=== PATIENT | male | born 1945 | race Caucasian/White ===

== ENCOUNTER → 2017-04-08 09:59 | Outpatient (CLI) | payer MEDICARE, BC, SELFPAY ==
[2017-04-08 10:57] LABS: Hemoglobin A1C 8.3 % (0.0-7.0)
[2017-04-08 11:34] LABS: Alanine Aminotransferase 42 U/L (12-78); Albumin Level 3.8 gm/dL (3.4-5.0); Albumin/Globulin Ratio 1.2 (1.1-1.8); Alkaline Phosphatase 89 U/L (46-116); Anion Gap 13.6 mEq/L (5-15); Aspartate Amino Transferase 16 U/L (15-37); Bilirubin,Total 0.4 mg/dL (0.2-1.0); Blood Urea Nitrogen 18 mg/dL (7-18); Calcium 8.6 mg/dL (8.5-10.1); Carbon Dioxide 29 mmol/L (21.0-32.0); Chloride 104 mmol/L (98-107); Chol/HDL Ratio 5.2 (1-3.5); Cholesterol 160 mg/dL (140-200); Creatinine,Serum 1.06 mg/dL (0.70-1.30); Estimated Glomerular Filt Rate 69 ml/min (>60); GFR (African American) 84 ML/MIN (>60); Globulin 3.3 gm/dl (1.3-3.2); Glucose 130 mg/dL (74-106); HDL Cholesterol 31 mg/dL (27-67); LDL Cholesterol 99 mg/dL (0-130); Potassium 4.6 mmoL/L (3.5-5.1); Sodium 142 mmol/L (136-145); Total Protein,Serum 7.1 gm/dL (6.4-8.2); Triglycerides 148 mg/dL (30-200); VLDL Cholesterol 30 mg/dL (0-40)
== END ==
PROVIDERS: PCP Internal Medicine; Visit Provider Internal Medicine
DX: E11.9 Type 2 diabetes mellitus without complications (principal); Z12.5 Encounter for screening for malignant neoplasm of prostate; I10 Essential (primary) hypertension; M17.0 Bilateral primary osteoarthritis of knee
CPT/HCPCS: 36415; 80053; 80061; 83036; G0103

== ENCOUNTER → 2017-10-28 09:58 | Outpatient (CLI) | payer MEDICARE, BC, SELFPAY ==
[2017-10-28 12:32] LABS: Alanine Aminotransferase 44 U/L (12-78); Albumin Level 3.6 gm/dL (3.4-5.0); Albumin/Globulin Ratio 1.1 (1.1-1.8); Alkaline Phosphatase 97 U/L (46-116); Anion Gap 12.3 mEq/L (5-15); Aspartate Amino Transferase 16 U/L (15-37); Bilirubin,Total 0.5 mg/dL (0.2-1.0); Blood Urea Nitrogen 21 mg/dL (7-18); Calcium 8.8 mg/dL (8.5-10.1); Carbon Dioxide 30 mmol/L (21.0-32.0); Chloride 105 mmol/L (98-107); Chol/HDL Ratio 5.5 (1-3.5); Cholesterol 148 mg/dL (140-200); Creatinine,Serum 1.15 mg/dL (0.70-1.30); Estimated Glomerular Filt Rate 63 ml/min (>60); GFR (African American) 76 ML/MIN (>60); Globulin 3.4 gm/dl (1.3-3.2); Glucose 154 mg/dL (74-106); HDL Cholesterol 27 mg/dL (27-67); LDL Cholesterol 82 mg/dL (0-130); Potassium 4.3 mmoL/L (3.5-5.1); Sodium 143 mmol/L (136-145); Triglycerides 194 mg/dL (30-200); VLDL Cholesterol 39 mg/dL (0-40)
[2017-10-28 13:18] LABS: Hemoglobin A1C 8.5 % (0.0-7.0)
== END ==
PROVIDERS: PCP Internal Medicine; Visit Provider Internal Medicine
DX: E11.9 Type 2 diabetes mellitus without complications (principal); E78.5 Hyperlipidemia, unspecified; I10 Essential (primary) hypertension
CPT/HCPCS: 36415; 80053; 80061; 83036

== ENCOUNTER → 2018-04-21 09:22 | Outpatient (CLI) | payer MEDICARE, BC, SELFPAY ==
[2018-04-21 11:51] LABS: Alanine Aminotransferase 43 U/L (12-78); Albumin Level 3.6 gm/dL (3.4-5.0); Albumin/Globulin Ratio 1.1 (1.1-1.8); Alkaline Phosphatase 95 U/L (46-116); Aspartate Amino Transferase 11 U/L (15-37); Bilirubin,Total 0.6 mg/dL (0.2-1.0); Blood Urea Nitrogen 19 mg/dL (7-18); Calcium 8.7 mg/dL (8.5-10.1); Carbon Dioxide 29 mmol/L (21.0-32.0); Chloride 102 mmol/L (98-107); Cholesterol 173 mg/dL (140-200); Creatinine,Serum 1.05 mg/dL (0.70-1.30); Estimated Glomerular Filt Rate 70 ml/min (>60); GFR (African American) 84 ML/MIN (>60); Globulin 3.4 gm/dl (1.3-3.2); Glucose 195 mg/dL (74-106); HDL Cholesterol 29 mg/dL (27-67); LDL Cholesterol 112 mg/dL (0-130); Prostate Specific Ag, Diagnost 1.11 ng/mL (0.0-4.0); Sodium 142 mmol/L (136-145); Triglycerides 159 mg/dL (30-200); VLDL Cholesterol 32 mg/dL (0-40)
[2018-04-21 13:47] LABS: Hemoglobin A1C 8.1 % (0.0-7.0)
[2018-04-25 09:54] LABS: Microalbumin, Urine 55.9 ug/mL (Not Estab.)
== END ==
PROVIDERS: Visit Provider Internal Medicine
DX: E11.9 Type 2 diabetes mellitus without complications (principal); R97.20 Elevated prostate specific antigen [PSA]; Z79.4 Long term (current) use of insulin; Z79.84 Long term (current) use of oral hypoglycemic drugs
CPT/HCPCS: 36415; 80053; 80061; 82043; 83036; 84153

== ENCOUNTER → 2018-07-17 10:09 | Outpatient (CLI) | payer MEDICARE, BC, SELFPAY ==
[2018-07-17 10:13] LABS: Microscopic, Urine URINE MICROSCOPIC (MICROSCOPIC)
--- NOTE | 2018-07-17 10:30 | XR_ITS ---
XR chest 2V HISTORY: ITS.REASON: HTN, PRE OP ORDERING PHYSICIAN: Ariel Villaseñor PATIENT AGE: 72 years COMPARISON: None FINDINGS: The cardiomediastinal silhouette and pulmonary vascularity are within normal limits. The lungs are clear without infiltrates, suspicious nodules, or pleural effusions. There are mild degenerative changes in the thoracic spine. IMPRESSION: No acute finding
[2018-07-17 10:33] LABS: Basophils # 0.1 K/mm3 (0-0.2); Basophils % 1.5 % (0.1-2.0); Eosinophils # 0.7 K/mm3 (0.0-0.4); Hematocrit 50.8 % (42.0-52.0); Hemoglobin 16.6 g/dL (14.1-18.0); Lymphocytes # 2.2 K/mm3 (0.7-4.5); Mean Corpuscular HGB Conc 32.8 g/dL (31.8-35.4); Mean Corpuscular Hemoglobin 28.6 pg (27.0-31.2); Mean Corpuscular Volume 87.3 fl (80-94); Mean Platelet Volume 7.9 fl (7.4-10.4); Monocytes # 0.5 K/mm3 (0.1-1.0); Monocytes % 5.1 % (1.7-9.3); Neutrophils # 5.5 K/mm3 (1.8-7.8); Neutrophils % 61.4 % (37.0-80.0); Platelet Count 213 K/mm3 (142-424); Red Blood Count 5.82 M/mm3 (4.60-6.20); Red Cell Distribution Width 13.5 % (11.5-17.5)
[2018-07-17 10:35] LABS: Appearance,Urine CLEAR (Clear); Bilirubin,Urine Negative (Negative); Blood, Urine Negative (Negative); Color,Urine YELLOW (Yellow); Glucose,Urine (UA) 3+ (Negative); Ketones,Urine Negative (Negative); Leukocyte Esterase,Urine Negative (Negative); Nitrate,Urine Negative (Negative); Protein,Urine Negative (Negative); Urobilinogen,Urine 0.2 EU/dl (0.2)
[2018-07-17 10:41] LABS: INR 0.97 (0.9-1.1); Prothrombin Time 10.1 seconds (9.4-11.8)
[2018-07-17 10:52] LABS: Bacteria,Urine Trace /lpf; Squamous Epithelial Cell,Urine Occasional #/hpf (0-5)
[2018-07-17 11:57] LABS: Alanine Aminotransferase 42 U/L (12-78); Albumin/Globulin Ratio 1.1 (1.1-1.8); Alkaline Phosphatase 88 U/L (46-116); Anion Gap 15.4 mEq/L (5-15); Aspartate Amino Transferase 14 U/L (15-37); Bilirubin,Total 0.5 mg/dL (0.2-1.0); Blood Urea Nitrogen 25 mg/dL (7-18); Calcium 8.7 mg/dL (8.5-10.1); Carbon Dioxide 26 mmol/L (21.0-32.0); Chloride 105 mmol/L (98-107); Chol/HDL Ratio 6.2 (1-3.5); Cholesterol 160 mg/dL (140-200); Creatinine,Serum 1.14 mg/dL (0.70-1.30); Estimated Glomerular Filt Rate 64 ml/min (>60); GFR (African American) 77 ML/MIN (>60); Globulin 3.7 gm/dl (1.3-3.2); Glucose 78 mg/dL (74-106); HDL Cholesterol 26 mg/dL (27-67); LDL Cholesterol 104 mg/dL (0-130); Potassium 4.4 mmoL/L (3.5-5.1); Sodium 142 mmol/L (136-145); Total Protein,Serum 7.7 gm/dL (6.4-8.2); Triglycerides 149 mg/dL (30-200); VLDL Cholesterol 30 mg/dL (0-40)
== END ==
PROVIDERS: Visit Provider Internal Medicine
DX: E11.9 Type 2 diabetes mellitus without complications; Z79.4 Long term (current) use of insulin; I10 Essential (primary) hypertension; M17.0 Bilateral primary osteoarthritis of knee; Z01.818 Encounter for other preprocedural examination; Z51.81 Encounter for therapeutic drug level monitoring
CPT/HCPCS: 36415; 71046; 80053; 80061; 81001; 83036; 85025; 85610; 93005

== ENCOUNTER → 2019-03-16 10:12 | Outpatient (CLI) | payer MEDICARE, BC, SELFPAY ==
[2019-03-16 11:30] LABS: Alanine Aminotransferase 32 U/L (12-78); Albumin Level 3.6 gm/dL (3.4-5.0); Albumin/Globulin Ratio 1.2 (1.1-1.8); Alkaline Phosphatase 94 U/L (46-116); Anion Gap 12.4 mEq/L (5-15); Aspartate Amino Transferase 17 U/L (15-37); Bilirubin,Total 0.6 mg/dL (0.2-1.0); Blood Urea Nitrogen 21 mg/dL (7-18); Calcium 8.5 mg/dL (8.5-10.1); Carbon Dioxide 28 mmol/L (21.0-32.0); Chloride 105 mmol/L (98-107); Cholesterol 136 mg/dL (140-200); Estimated Glomerular Filt Rate 66 ml/min (>60); GFR (African American) 80 ML/MIN (>60); Globulin 3.1 gm/dl (1.3-3.2); Glucose 143 mg/dL (74-106); HDL Cholesterol 27 mg/dL (27-67); LDL Cholesterol 77 mg/dL (0-130); Potassium 4.4 mmoL/L (3.5-5.1); Sodium 141 mmol/L (136-145); Total Protein,Serum 6.7 gm/dL (6.4-8.2); Triglycerides 160 mg/dL (30-200); VLDL Cholesterol 32 mg/dL (0-40)
[2019-03-16 11:37] LABS: Hemoglobin A1C 7.9 % (0.0-7.0)
[2019-03-18 18:02] LABS: Microalbumin, Urine 3.8 ug/mL (Not Estab.)
== END ==
PROVIDERS: Visit Provider Internal Medicine
DX: E78.5 Hyperlipidemia, unspecified (principal); E55.9 Vitamin D deficiency, unspecified; R39.12 Poor urinary stream; M49.82 Spondylopathy in diseases classified elsewhere, cervical region; Z79.899 Other long term (current) drug therapy
CPT/HCPCS: 36415; 80053; 80061; 82043; 83036

== ENCOUNTER → 2019-10-12 10:02 | Outpatient (CLI) | payer MEDICARE, BC, SELFPAY ==
[2019-10-12 11:42] LABS: Chloride 103 mmol/L (98-107); Potassium 4.5 mmoL/L (3.5-5.1); Sodium 141 mmol/L (136-145)
[2019-10-12 11:44] LABS: Blood Urea Nitrogen 25 mg/dl (9-20); Estimated Glomerular Filt Rate 66 ml/min (>60); GFR (African American) 80 ML/MIN (>60)
[2019-10-12 11:45] LABS: Alanine Aminotransferase 28 U/L (12-78); Albumin Level 4.1 g/dl (3.5-5.0); Albumin/Globulin Ratio 1.5 (1.1-1.8); Alkaline Phosphatase 70 U/L (38-126); Anion Gap 15.5 mEq/L (5-15); Aspartate Amino Transferase 25 U/L (17-59); Bilirubin,Total 0.8 mg/dl (0.2-1.3); Calcium 9.4 mg/dl (8.4-10.2); Carbon Dioxide 27 mmol/L (22.0-30.0); Cholesterol 120 mg/dl (140-200); Globulin 2.7 g/dL (1.3-3.2); Glucose 125 mg/dl (74-100); Total Protein,Serum 6.8 g/dl (6.3-8.2); Triglycerides 154 mg/dl (30-150); VLDL Cholesterol 31 mg/dL (0-40)
[2019-10-12 11:46] LABS: Chol/HDL Ratio 4.3 (1-3.5); HDL Cholesterol 28 mg/dl (40-60)
[2019-10-12 11:56] LABS: Direct LDL Cholesterol 67.88 mg/dL (100-129)
[2019-10-12 12:08] LABS: Hemoglobin A1C 8.6 % (4.0-6.0)
[2019-10-12 13:08] LABS: Prostate Specific Ag, Diagnost 0.821 ng/ml (0.0-4.0)
== END ==
PROVIDERS: Visit Provider Internal Medicine
DX: E11.9 Type 2 diabetes mellitus without complications (principal); E78.5 Hyperlipidemia, unspecified; I10 Essential (primary) hypertension; N40.1 Benign prostatic hyperplasia with lower urinary tract symptoms; Z79.84 Long term (current) use of oral hypoglycemic drugs
CPT/HCPCS: 36415; 80053; 80061; 83036; 84153

== ENCOUNTER → 2020-04-18 09:27 | Outpatient (CLI) | payer MEDICARE, BC, SELFPAY ==
[2020-04-18 10:12] LABS: Alanine Aminotransferase 30 U/L (12-78); Albumin Level 4.2 g/dl (3.5-5.0); Albumin/Globulin Ratio 1.4 (1.1-1.8); Alkaline Phosphatase 90 U/L (38-126); Anion Gap 11.5 mEq/L (5-15); Aspartate Amino Transferase 23 U/L (17-59); Bilirubin,Total 0.6 mg/dl (0.2-1.3); Blood Urea Nitrogen 25 mg/dl (9-20); Calcium 9.8 mg/dl (8.4-10.2); Carbon Dioxide 30 mmol/L (22.0-30.0); Chloride 103 mmol/L (98-107); Chol/HDL Ratio 4.7 (1-3.5); Cholesterol 140 mg/dl (140-200); Estimated Glomerular Filt Rate 73 ml/min (>60); GFR (African American) 89 ML/MIN (>60); Globulin 3.1 g/dL (1.3-3.2); Glucose 240 mg/dl (74-100); HDL Cholesterol 30 mg/dl (40-60); Potassium 4.5 mmoL/L (3.5-5.1); Sodium 140 mmol/L (136-145); Total Protein,Serum 7.3 g/dl (6.3-8.2); Triglycerides 226 mg/dl (30-150); VLDL Cholesterol 45 mg/dL (0-40)
[2020-04-18 10:15] LABS: Basophils # 0.1 K/mm3 (0-0.2); Basophils % 1.3 % (0.1-2.0); Eosinophils # 0.7 K/mm3 (0.0-0.4); Eosinophils % 7.2 % (0.1-12.0); Hematocrit 49.7 % (42.0-52.0); Hemoglobin 16.2 g/dL (14.1-18.0); Lymphocytes # 2.2 K/mm3 (0.7-4.5); Lymphocytes % 22.6 % (10-50); Mean Corpuscular HGB Conc 32.5 g/dL (31.8-35.4); Mean Corpuscular Hemoglobin 28.7 pg (27.0-31.2); Mean Corpuscular Volume 88.3 fl (80-94); Mean Platelet Volume 8.1 fl (7.4-10.4); Monocytes # 0.5 K/mm3 (0.1-1.0); Monocytes % 4.7 % (1.7-9.3); Neutrophils # 6.3 K/mm3 (1.8-7.8); Neutrophils % 64.1 % (37.0-80.0); Platelet Count 180 K/mm3 (142-424); Red Blood Count 5.63 M/mm3 (4.60-6.20); Red Cell Distribution Width 13.3 % (11.5-17.5); White Blood Count 9.9 K/mm3 (4.8-10.8)
[2020-04-18 10:24] LABS: Direct LDL Cholesterol 72.78 mg/dL (100-129)
== END ==
PROVIDERS: Visit Provider Internal Medicine
DX: E11.9 Type 2 diabetes mellitus without complications (principal); I10 Essential (primary) hypertension; E78.5 Hyperlipidemia, unspecified; M17.0 Bilateral primary osteoarthritis of knee; Z79.84 Long term (current) use of oral hypoglycemic drugs
CPT/HCPCS: 36415; 80053; 80061; 85025

== ENCOUNTER → 2020-05-27 07:54 | Outpatient (CLI) | payer MEDICARE, BC, SELFPAY ==
--- NOTE | 2020-05-27 07:59 | XR_ITS ---
PROCEDURE: XR FOOT WT BEARING LT 3V CLINICAL INDICATION: Pain COMPARISON: No exams were available for comparison FINDINGS: No fracture or dislocation. No lytic or blastic change. There is normal mineralization. Mild hypertrophic changes of the distal aspect of the 1st metatarsal with minimal osteoarthritic change 1st MTP joint. Nonspecific cortical thickening involves the 2nd 3rd and 4th metatarsals. No fracture or dislocation. Borderline pes planus. Other findings:Flocculent calcification noted along the plantar fascia region anterior to a calcaneal spur. Minimal calcification noted at the distal Achilles tendon. IMPRESSION: Minimal osteoarthritic change 1st MTP joint with hyperostosis of the 1st metatarsal suggesting early bunion formation. Flocculent calcification at the plantar fascia which may be seen with chronic plantar fasciitis. Borderline pes planus Dictated by: Julian Rivera MD 05/27/2020 08:49 Julian Rivera MD in [place] 05/27/2020 08:49
--- NOTE | 2020-05-27 07:59 | XR_ITS ---
PROCEDURE: XR FOOT WT BEARING RT 3V CLINICAL INDICATION: pain COMPARISON: No exams were available for comparison FINDINGS: Mild osteoarthritic change 1st metatarsophalangeal joint with prominence of the distal aspect of the 1st metatarsal and mild soft tissue swelling medially at this area consistent with bunion formation. Lucency is present at the base of the 5th metatarsal laterally consistent with ununited ossification center. There is mild pes planus. Calcification is present along the plantar fascia. There is a calcaneal spur noted. Other findings:None. 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 Calcification along the plantar fascia which may be seen with chronic plantar fasciitis Pes planus Dictated by: Julian Rivera MD 05/27/2020 08:47 Julian Rivera MD in [place] 05/27/2020 08:47
== END ==
PROVIDERS: PCP Internal Medicine; Visit Provider Podiatrist
DX: M79.672 Pain in left foot (principal); M79.671 Pain in right foot
CPT/HCPCS: 73630

== ENCOUNTER → 2021-01-09 09:56 | Outpatient (CLI) | payer MEDICARE, BC, SELFPAY ==
[2021-01-09 11:17] LABS: Chloride 102 mmol/L (98-107); Sodium 141 mmol/L (136-145)
[2021-01-09 11:18] LABS: Potassium 4.7 mmoL/L (3.5-5.1)
[2021-01-09 11:20] LABS: Alanine Aminotransferase 30 U/L (12-78); Alkaline Phosphatase 86 U/L (38-126); Anion Gap 14.7 mEq/L (5-15); Aspartate Amino Transferase 28 U/L (17-59); Bilirubin,Total 0.6 mg/dl (0.2-1.3); Blood Urea Nitrogen 20 mg/dl (9-20); Calcium 9.4 mg/dl (8.4-10.2); Carbon Dioxide 29 mmol/L (22.0-30.0); Cholesterol 144 mg/dl (140-200); Estimated Glomerular Filt Rate 83 ml/min (>60); GFR (African American) 100 ML/MIN (>60); Glucose 141 mg/dl (74-100); Triglycerides 178 mg/dl (30-150); VLDL Cholesterol 36 mg/dL (0-40)
[2021-01-09 11:21] LABS: Albumin Level 4.3 g/dl (3.5-5.0); Albumin/Globulin Ratio 1.7 (1.1-1.8); Chol/HDL Ratio 5.1 (1-3.5); Globulin 2.6 g/dL (1.3-3.2); HDL Cholesterol 28 mg/dl (40-60); Total Protein,Serum 6.9 g/dl (6.3-8.2)
[2021-01-09 11:25] LABS: Hemoglobin A1C 8.4 % (4.0-6.0)
[2021-01-09 11:33] LABS: Direct LDL Cholesterol 88.76 mg/dL (100-129)
== END ==
PROVIDERS: Visit Provider Internal Medicine
DX: E11.9 Type 2 diabetes mellitus without complications (principal); E78.5 Hyperlipidemia, unspecified; I10 Essential (primary) hypertension; M15.0 Primary generalized (osteo)arthritis; Z79.84 Long term (current) use of oral hypoglycemic drugs
CPT/HCPCS: 36415; 80053; 80061; 83036

== ENCOUNTER → 2021-07-24 09:30 | Outpatient (CLI) | payer MEDICARE, BC, SELFPAY ==
[2021-07-24 09:57] LABS: Basophils # 0.2 K/mm3 (0-0.2); Basophils % 2.3 % (0.1-2.0); Eosinophils # 0.8 K/mm3 (0.0-0.4); Eosinophils % 8.6 % (0.1-12.0); Hematocrit 46.1 % (42.0-52.0); Hemoglobin 14.8 g/dL (14.1-18.0); Lymphocytes # 2.2 K/mm3 (0.7-4.5); Lymphocytes % 24.5 % (10-50); Mean Corpuscular HGB Conc 32.1 g/dL (31.8-35.4); Mean Corpuscular Volume 90.3 fl (80-94); Mean Platelet Volume 8.7 fl (7.4-10.4); Monocytes # 0.6 K/mm3 (0.1-1.0); Monocytes % 6.3 % (1.7-9.3); Neutrophils # 5.3 K/mm3 (1.8-7.8); Neutrophils % 58.3 % (37.0-80.0); Platelet Count 229 K/mm3 (142-424); Red Blood Count 5.11 M/mm3 (4.60-6.20); Red Cell Distribution Width 13.7 % (11.5-17.5); White Blood Count 9.1 K/mm3 (4.8-10.8)
[2021-07-24 10:21] LABS: Microalbumin/Creatinine Ratio 36.9
[2021-07-24 10:23] LABS: Creatinine,Urine Random 75 mg/dL (Not Estab.)
[2021-07-24 10:24] LABS: Hemoglobin A1C 8.3 % (4.0-6.0)
[2021-07-24 10:32] LABS: Alanine Aminotransferase 35 U/L (12-78); Albumin Level 4.1 g/dl (3.5-5.0); Albumin/Globulin Ratio 1.6 (1.1-1.8); Alkaline Phosphatase 79 U/L (38-126); Anion Gap 12.1 mEq/L (5-15); Aspartate Amino Transferase 30 U/L (17-59); Bilirubin,Total 0.6 mg/dl (0.2-1.3); Blood Urea Nitrogen 21 mg/dl (9-20); Calcium 9.2 mg/dl (8.4-10.2); Carbon Dioxide 30 mmol/L (22.0-30.0); Chloride 103 mmol/L (98-107); Cholesterol 120 mg/dl (140-200); Estimated Glomerular Filt Rate 83 ml/min (>60); GFR (African American) 100 ML/MIN (>60); Globulin 2.5 g/dL (1.3-3.2); Glucose 84 mg/dl (74-100); HDL Cholesterol 30 mg/dl (40-60); Potassium 4.1 mmoL/L (3.5-5.1); Sodium 141 mmol/L (136-145); Total Protein,Serum 6.6 g/dl (6.3-8.2); Triglycerides 125 mg/dl (30-150); VLDL Cholesterol 25 mg/dL (0-40)
[2021-07-24 11:03] LABS: Prostate Specific Ag, Diagnost 0.754 ng/ml (0.0-4.0)
== END ==
PROVIDERS: PCP Internal Medicine; Visit Provider Internal Medicine
DX: E11.9 Type 2 diabetes mellitus without complications (principal); E78.5 Hyperlipidemia, unspecified; I10 Essential (primary) hypertension; N40.1 Benign prostatic hyperplasia with lower urinary tract symptoms; Z79.84 Long term (current) use of oral hypoglycemic drugs
CPT/HCPCS: 36415; 80053; 80061; 82043; 82570; 83036; 84153; 85025

== ENCOUNTER → 2022-01-15 09:59 | Outpatient (CLI) | payer MEDICARE, BC, SELFPAY ==
[2022-01-15 10:30] LABS: Hemoglobin A1C 9.3 % (4.0-6.0)
[2022-01-15 10:33] LABS: Chloride 101 mmol/L (98-107)
[2022-01-15 10:34] LABS: Potassium 4.3 mmoL/L (3.5-5.1); Sodium 141 mmol/L (136-145)
[2022-01-15 10:36] LABS: Alanine Aminotransferase 43 U/L (12-78); Albumin Level 4.1 g/dl (3.5-5.0); Albumin/Globulin Ratio 1.5 (1.1-1.8); Alkaline Phosphatase 101 U/L (38-126); Anion Gap 16.3 mEq/L (5-15); Aspartate Amino Transferase 32 U/L (17-59); Bilirubin,Total 0.5 mg/dl (0.2-1.3); Blood Urea Nitrogen 27 mg/dl (9-20); Carbon Dioxide 28 mmol/L (22.0-30.0); Estimated Glomerular Filt Rate 73 ml/min (>60); GFR (African American) 88 ML/MIN (>60); Globulin 2.7 g/dL (1.3-3.2); Total Protein,Serum 6.8 g/dl (6.3-8.2)
[2022-01-15 10:37] LABS: Calcium 9.4 mg/dl (8.4-10.2); Chol/HDL Ratio 5.5 (1-3.5); Cholesterol 132 mg/dl (140-200); Glucose 100 mg/dl (74-100); HDL Cholesterol 24 mg/dl (40-60); Triglycerides 168 mg/dl (30-150); VLDL Cholesterol 34 mg/dL (0-40)
[2022-01-15 10:48] LABS: Direct LDL Cholesterol 67.95 mg/dL (100-129)
[2022-01-15 11:07] LABS: Thyroid Stimulating Hormone 4.08 uIU/mL (0.465-4.68)
[2022-01-15 11:44] LABS: Vitamin B12 385 pg/mL (239-931)
[2022-01-15 11:45] LABS: Folate > 20.00 ng/mL
== END ==
PROVIDERS: PCP Internal Medicine; Visit Provider Internal Medicine
DX: E11.42 Type 2 diabetes mellitus with diabetic polyneuropathy (principal); I10 Essential (primary) hypertension; E78.5 Hyperlipidemia, unspecified; Z79.84 Long term (current) use of oral hypoglycemic drugs
CPT/HCPCS: 36415; 80053; 80061; 82607; 82746; 83036; 84443

== ENCOUNTER → 2022-02-16 12:37 | Outpatient (CLI) | payer MEDICARE, BC, SELFPAY ==
--- NOTE | 2022-02-16 12:41 | XR_ITS ---
FINAL REPORT CLINICAL HISTORY: neck pain, no injury, pain x 5 years FINDINGS: SPINE CERVICAL COMPLETE/FLEXION & EXT Seven views were obtained. There is no acute fracture. The vertebrae are normally aligned. There are mild and moderate degenerative changes with osteophytes. There is mild right neural foraminal narrowing at C3-C4. There is mild left neural foraminal narrowing at C3-C4 and C4-C5. There are several chronic calcifications posteriorly. There are vascular calcifications bilaterally. There is no abnormal movement with flexion or extension. IMPRESSION: Mild and moderate degenerative changes. Reviewed, Interpreted and Dictated by Jose Humphries III, MD Transcribed by Camron Ludwig Authenticated and [facility]
[2022-02-17 16:12] LABS: Albumin 3.8 g/dL (2.9-4.4); Alpha-1-Globulin 0.2 g/dL (0.0-0.4); Alpha-2-Globulin 0.9 g/dL (0.4-1.0); Gamma Globulin 0.9 g/dL (0.4-1.8)
[2022-02-19 00:08] LABS: Vitamin B1 198.5 nmol/L (66.5-200.0)
[2022-02-21 21:22] LABS: Methylmalonic Acid 306 nmol/L (0-378)
== END ==
PROVIDERS: PCP Internal Medicine; Visit Provider Nurse Practitioner Family
DX: M54.2 Cervicalgia (principal); R20.2 Paresthesia of skin; R25.2 Cramp and spasm; E11.69 Type 2 diabetes mellitus with other specified complication; E53.8 Deficiency of other specified B group vitamins; E66.9 Obesity, unspecified; Z68.37 Body mass index [BMI] 37.0-37.9, adult; Z79.4 Long term (current) use of insulin
CPT/HCPCS: 36415; 72052; 82131; 83735; 84155; 84165; 84425; 86334

== ENCOUNTER → 2022-04-19 08:28 | Outpatient (CLI) | payer MEDICARE, SELFPAY ==
[2022-04-19 10:22] LABS: Alanine Aminotransferase 28 U/L (12-78); Albumin Level 4.2 g/dl (3.5-5.0); Albumin/Globulin Ratio 1.6 (1.1-1.8); Alkaline Phosphatase 92 U/L (38-126); Anion Gap 12.4 mEq/L (5-15); Aspartate Amino Transferase 25 U/L (17-59); Bilirubin,Total 0.5 mg/dl (0.2-1.3); Blood Urea Nitrogen 36 mg/dl (9-20); Calcium 9.1 mg/dl (8.4-10.2); Carbon Dioxide 29 mmol/L (22.0-30.0); Chloride 101 mmol/L (98-107); Estimated Glomerular Filt Rate 54 ml/min (>60); GFR (African American) 65 ML/MIN (>60); Globulin 2.7 g/dL (1.3-3.2); Glucose 192 mg/dl (74-100); Potassium 4.4 mmoL/L (3.5-5.1); Sodium 138 mmol/L (136-145); Total Protein,Serum 6.9 g/dl (6.3-8.2)
[2022-04-19 11:39] LABS: Hemoglobin A1C 7.1 % (4.0-6.0)
== END ==
PROVIDERS: PCP Internal Medicine; Visit Provider Nurse Practitioner Family
DX: E11.69 Type 2 diabetes mellitus with other specified complication (principal); E66.9 Obesity, unspecified; G62.9 Polyneuropathy, unspecified; Z79.4 Long term (current) use of insulin
CPT/HCPCS: 36415; 80053; 83036

== ENCOUNTER → 2022-07-20 09:15 | Outpatient (CLI) | payer MEDICARE, SELFPAY ==
[2022-07-20 10:28] LABS: Alanine Aminotransferase 30 U/L (12-78); Albumin Level 4.2 g/dl (3.5-5.0); Albumin/Globulin Ratio 1.6 (1.1-1.8); Alkaline Phosphatase 86 U/L (38-126); Anion Gap 18.1 mEq/L (5-15); Aspartate Amino Transferase 29 U/L (17-59); Bilirubin,Total 0.5 mg/dl (0.2-1.3); Blood Urea Nitrogen 27 mg/dl (9-20); Calcium 8.9 mg/dl (8.4-10.2); Carbon Dioxide 27 mmol/L (22.0-30.0); Chloride 98 mmol/L (98-107); Chol/HDL Ratio 4.1 (1-3.5); Cholesterol 132 mg/dl (140-200); Estimated Glomerular Filt Rate 73 ml/min (>60); GFR (African American) 88 ML/MIN (>60); Globulin 2.6 g/dL (1.3-3.2); Glucose 116 mg/dl (74-100); HDL Cholesterol 32 mg/dl (40-60); Potassium 4.1 mmoL/L (3.5-5.1); Sodium 139 mmol/L (136-145); Total Protein,Serum 6.8 g/dl (6.3-8.2); Triglycerides 118 mg/dl (30-150); VLDL Cholesterol 24 mg/dL (0-40)
[2022-07-20 10:36] LABS: Hemoglobin A1C 6.2 % (4.0-6.0)
[2022-07-20 10:38] LABS: Direct LDL Cholesterol 80.82 mg/dL (100-129)
[2022-07-20 10:41] LABS: Creatinine,Urine Random 146 mg/dL (Not Estab.)
[2022-07-20 10:42] LABS: Microalbumin/Creatinine Ratio 12.8
[2022-07-20 10:59] LABS: Prostate Specific Ag Screen 1.2 ng/ml (0.0-4.0)
== END ==
PROVIDERS: PCP Internal Medicine; Visit Provider Internal Medicine
DX: E11.42 Type 2 diabetes mellitus with diabetic polyneuropathy (principal); E78.5 Hyperlipidemia, unspecified; I10 Essential (primary) hypertension; N40.1 Benign prostatic hyperplasia with lower urinary tract symptoms; Z12.5 Encounter for screening for malignant neoplasm of prostate; Z79.4 Long term (current) use of insulin
CPT/HCPCS: 36415; 80053; 80061; 82043; 82570; 83036; G0103

== ENCOUNTER 2023-05-06 10:55 | Outpatient (CLI) | payer MEDICARE, SELFPAY ==
--- NOTE | 2023-05-06 11:13 | XR_ITS ---
FINAL REPORT CLINICAL HISTORY: [place] FINDINGS: PA and lateral views of the chest are obtained. There is no prior exam for comparison. The cardiac and mediastinal silhouettes are within normal limits. The lungs are clear. There is no pleural effusion, pneumothorax, or acute osseous abnormality. IMPRESSION: No radiographic evidence of acute cardiac or pulmonary disease. Authenticated and [facility]
[2023-05-06 11:25] LABS: Microscopic, Urine URINE MICROSCOPIC (MICROSCOPIC)
[2023-05-06 11:54] LABS: Basophils # 0.1 K/mm3 (0-0.2); Eosinophils # 0.5 K/mm3 (0.0-0.4); Eosinophils % 4.2 % (0.1-12.0); Hematocrit 45.3 % (42.0-52.0); Hemoglobin 14.5 g/dL (14.1-18.0); Lymphocytes # 1.6 K/mm3 (0.7-4.5); Lymphocytes % 13.9 % (10-50); Mean Corpuscular HGB Conc 32.1 g/dL (31.8-35.4); Mean Corpuscular Hemoglobin 29.9 pg (27.0-31.2); Mean Corpuscular Volume 93.1 fl (80-94); Mean Platelet Volume 8.8 fl (7.4-10.4); Monocytes # 0.8 K/mm3 (0.1-1.0); Neutrophils # 8.3 K/mm3 (1.8-7.8); Neutrophils % 73.9 % (37.0-80.0); Platelet Count 203 K/mm3 (142-424); Red Blood Count 4.87 M/mm3 (4.60-6.20); Red Cell Distribution Width 13.5 % (11.5-17.5); White Blood Count 11.2 K/mm3 (4.8-10.8)
[2023-05-06 12:02] LABS: Alanine Aminotransferase 36 U/L (12-78); Albumin Level 3.5 g/dl (3.5-5.0); Albumin/Globulin Ratio 1.3 (1.1-1.8); Alkaline Phosphatase 88 U/L (38-126); Anion Gap 10.4 mEq/L (5-15); Aspartate Amino Transferase 29 U/L (17-59); Bilirubin,Total 0.9 mg/dl (0.2-1.3); Blood Urea Nitrogen 36 mg/dl (9-20); Calcium 8.9 mg/dl (8.4-10.2); Carbon Dioxide 31 mmol/L (22.0-30.0); Chloride 102 mmol/L (98-107); Estimated Glomerular Filt Rate 42 ml/min (>60); GFR (African American) 51 ML/MIN (>60); Globulin 2.7 g/dL (1.3-3.2); Glucose 149 mg/dl (74-100); Potassium 4.4 mmoL/L (3.5-5.1); Sodium 139 mmol/L (136-145); Total Protein,Serum 6.2 g/dl (6.3-8.2)
[2023-05-06 12:05] LABS: Appearance,Urine CLOUDY (Clear); Blood, Urine 1+ (Negative); Color,Urine YELLOW (Yellow); Glucose,Urine (UA) Negative (Negative); Ketones,Urine TRACE (Negative); Leukocyte Esterase,Urine 3+ (Negative); Nitrate,Urine POSITIVE (Negative); Protein,Urine 1+ (Negative); Specific Gravity, Urine 1.025 (1.005-1.030)
[2023-05-06 12:12] LABS: Bilirubin,Urine 1+ (Negative)
[2023-05-06 12:27] LABS: Bacteria,Urine 4+ /lpf; WBC,Urine TNTC #/hpf (0-3)
== END 2023-05-06 23:59 ==
LOC: LAB 10:57
PROVIDERS: PCP Internal Medicine; Visit Provider Internal Medicine
DX: R53.81 Other malaise; R61 Generalized hyperhidrosis; R68.83 Chills (without fever); N39.0 Urinary tract infection, site not specified; B96.29 Other Escherichia coli [E. coli] as the cause of diseases classified elsewhere
CPT/HCPCS: 36415; 71046; 80053; 81001; 85025; 87040; 87086

== ENCOUNTER 2023-08-16 16:57 | Outpatient (CLI) | payer MEDICARE, SELFPAY ==
[2023-08-16 17:31] LABS: Basophils # 0.1 K/mm3 (0-0.2); Basophils % 1.3 % (0.1-2.0); Eosinophils # 0.9 K/mm3 (0.0-0.4); Eosinophils % 8.1 % (0.1-12.0); Hemoglobin 15.2 g/dL (14.1-18.0); Lymphocytes # 2.3 K/mm3 (0.7-4.5); Lymphocytes % 22.1 % (10-50); Mean Corpuscular HGB Conc 33.1 g/dL (31.8-35.4); Mean Corpuscular Hemoglobin 29.3 pg (27.0-31.2); Mean Corpuscular Volume 88.7 fl (80-94); Mean Platelet Volume 8.7 fl (7.4-10.4); Monocytes # 0.5 K/mm3 (0.1-1.0); Monocytes % 4.6 % (1.7-9.3); Neutrophils # 6.7 K/mm3 (1.8-7.8); Neutrophils % 63.9 % (37.0-80.0); Platelet Count 244 K/mm3 (142-424); Red Blood Count 5.19 M/mm3 (4.60-6.20); Red Cell Distribution Width 14.5 % (11.5-17.5); White Blood Count 10.5 K/mm3 (4.8-10.8)
[2023-08-16 18:12] LABS: Erythrocyte Sedimentation Rate 15 mm/hr (0-20)
== END 2023-08-16 23:59 | disposition home or self-care (01) ==
LOC: LAB.DROPOF 16:57
PROVIDERS: PCP Internal Medicine; Visit Provider Internal Medicine
DX: R51.9 Headache, unspecified (principal); I10 Essential (primary) hypertension; Z87.891 Personal history of nicotine dependence
CPT/HCPCS: 85025; 85651

== ENCOUNTER 2023-08-30 07:03 | Outpatient (CLI) | payer MEDICARE, SELFPAY ==
--- NOTE | 2023-08-30 07:05 | CA_ITS ---
FINAL REPORT CLINICAL HISTORY: Intermittent dizziness, orthostatic type, headache COMPARISON: None FINDINGS: RIGHT CAROTID: CCA PSV -46 cm/sec ICA PSV -100 cm/sec ICA/CCA PSV ratio - 4.5. Comments: Mild plaque disease is noted. LEFTCAROTID: CCA PSV -55. cm/sec ICA PSV -58.6. cm/sec ICA/CCA PSV ratio -1.3. Comments: Mild plaque disease is noted. Antegrade flow is seen within the vertebral arteries. IMPRESSION: Carotid stenosis classified less than 50% The ICA/CCA ratio on the right side is likely falsely elevated due to a low peak systolic velocity in the distal right common carotid artery. Reviewed, Interpreted and Dictated by Gege Ferraro MD Transcribed by Belle Simmons Authenticated and [facility]
--- NOTE | 2023-08-30 07:41 | CT_ITS ---
FINAL REPORT CLINICAL HISTORY: Severe headache about 1 week ago dizziness COMPARISON: None FINDINGS: Mild atrophy and chronic ischemic white matter changes are noted. There are a few tiny right basal ganglia chronic lacunar infarcts present as well. No cortical edema is present. There is no mass or hemorrhage. Ventricles are normal. Bone windows show no skull fracture or obvious obstructive lesion. IMPRESSION: 1. No acute intracranial abnormality or obvious mass. 2. Mild atrophy and chronic ischemic white matter changes as above. Reviewed, Interpreted and Dictated by Gege Ferraro MD Transcribed by Belle Simmons Authenticated and [facility]
== END 2023-08-30 23:59 | disposition home or self-care (01) ==
LOC: RAD 07:05
PROVIDERS: PCP Internal Medicine; Visit Provider Internal Medicine
DX: R42 Dizziness and giddiness (principal); R51.9 Headache, unspecified
CPT/HCPCS: 70450; 93880

== ENCOUNTER 2023-10-20 09:40 | Outpatient (CLI) | payer MEDICARE, SELFPAY ==
[2023-10-20 17:43] LABS: Microalbumin/Creatinine Ratio 39.9
[2023-10-20 17:47] LABS: Creatinine,Urine Random 139 mg/dL (Not Estab.)
[2023-10-20 18:11] LABS: Alanine Aminotransferase 23 U/L (12-78); Albumin Level 3.7 g/dl (3.5-5.0); Albumin/Globulin Ratio 1.4 (1.1-1.8); Alkaline Phosphatase 75 U/L (38-126); Anion Gap 11.3 mEq/L (5-15); Aspartate Amino Transferase 23 U/L (17-59); Bilirubin,Total 0.7 mg/dl (0.2-1.3); Blood Urea Nitrogen 30 mg/dl (9-20); Calcium 8.9 mg/dl (8.4-10.2); Carbon Dioxide 27 mmol/L (22.0-30.0); Chloride 105 mmol/L (98-107); Chol/HDL Ratio 5.2 (1-3.5); Cholesterol 125 mg/dl (140-200); Estimated Glomerular Filt Rate 65 ml/min (>60); GFR (African American) 79 ML/MIN (>60); Globulin 2.7 g/dL (1.3-3.2); Glucose 125 mg/dl (74-100); HDL Cholesterol 24 mg/dl (40-60); Potassium 4.3 mmoL/L (3.5-5.1); Sodium 139 mmol/L (136-145); Total Protein,Serum 6.4 g/dl (6.3-8.2); Triglycerides 196 mg/dl (30-150); VLDL Cholesterol 39 mg/dL (0-40)
[2023-10-20 18:21] LABS: Direct LDL Cholesterol 62.46 mg/dL (100-129)
[2023-10-20 21:37] LABS: Hemoglobin A1C 8.8 % (4.0-6.0)
== END 2023-10-20 23:59 | disposition home or self-care (01) ==
LOC: LAB.DROPOF 10-22 17:23
PROVIDERS: PCP Internal Medicine; Visit Provider Internal Medicine
DX: E11.42 Type 2 diabetes mellitus with diabetic polyneuropathy (principal); I10 Essential (primary) hypertension; E78.5 Hyperlipidemia, unspecified
CPT/HCPCS: 80053; 80061; 82043; 82570; 83036

== ENCOUNTER 2024-02-09 15:36 | Outpatient (CLI) | payer MEDICARE, SELFPAY ==
--- NOTE | 2024-02-09 15:43 | XR_ITS ---
FINAL REPORT CLINICAL HISTORY: Low back pain FINDINGS: Five views of the lumbar spine were obtained. There is no evidence of fracture or dislocation. The vertebral alignment is normal. There are moderate degenerative changes. Vascular calcification is identified. No paraspinous soft tissue abnormalities identified. IMPRESSION: Moderate degenerative changes. Reviewed, Interpreted and Dictated by Jose Humphries III, MD Transcribed by Cristy Avendano Authenticated and [facility]
== END 2024-02-09 23:59 | disposition home or self-care (01) ==
LOC: RAD 15:37
PROVIDERS: PCP Internal Medicine; Visit Provider Internal Medicine
DX: M54.50 Low back pain, unspecified (principal)
CPT/HCPCS: 72110

== ENCOUNTER 2024-06-20 14:46 | Outpatient (CLI) | payer MEDICARE, OTHER, SELFPAY ==
--- OUTSIDE RECORDS SUMMARY | 2024-06-20 14:49 | XMS_ITS | Continuity of Care Document ---
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 It does not include entries that were removed or entered in error. Problem Status Onset Date Problem Type Date of Resolution Comments Source Osteoarthritis Inactive 9 Condition 09/03/2016 [facility] Gastroesophageal reflux disease Inactive 8 Condition 09/03/2016 [facility] Diabetes Mellitus Type II or unspecified Inactive 7 Condition 09/03/2016 [facility] Chronic constipation Inactive 4 Condition 09/03/2016 [facility] Hypertension Inactive 4 Condition 09/03/2016 [facility] Constipation Active Condition [facility] Hyperglycemia due to type 2 diabetes mellitus Active Condition [facility] Hypertension Active Condition [facility] Mixed hyperlipidemia Active Condition [facility] Benign essential hypertension (SNOMED CT 7041874) Inactive Condition 03/01/2019 [facility] Chronic kidney disease stage 3 Inactive Condition 01/28/2021 [facility] Diabetes mellitus (SNOMED CT 12966456) Inactive Condition 03/01/2019 [facility] OBSERV OTH SPEC SUSPEC COND Inactive Condition 09/03/2016 [facility] On examination - no disease present (SNOMED CT 88666163) Inactive Condition 09/03/2016 [facility] Diagnosis: ICD-10-CM E11.3391 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, r eye Active Diagnosis [facility] Diagnosis: ICD-10-CM Z71.9 Counseling, unspecified Active Diagnosis [facility] Diagnosis: ICD-10-CM Z13.9 Encounter for screening, unspecified Active Diagnosis [facility] Diagnosis: ICD-10-CM Z13.5 Encounter for screening for eye and ear disorders Active Diagnosis [facility] Diagnosis: ICD-10-CM E11.65 Type 2 diabetes mellitus with hyperglycemia Active Diagnosis [facility] Medications Combined list of outpatient medications from Department of Defense and [facility] facilities.Medications provided include 1) outpatient medications from the last 15 months, and 2) patient-reported medications. Medication Details Route Status Patient Instructions Prescription Expires Prescription Number Last Dispense Date Ordering Provider Order Date Order Qty Source ALOGLIPTIN 12.5MG TAB TAKE ONE TABLET BY MOUTH DAILY FOR BLOOD SUGAR ORAL DISCONT INUED 01/12/2024 [id number] Marcus PATEL IPTON L 2022 90 [facility] AMLODIPINE BESYLATE 10MG TAB TAKE ONE TABLET BY MOUTH DAILY ORAL ACTIVE CLICKANTHONY SA QUE 2016 [facility] ASPIRIN 81MG TAB,EC TAKE ONE TABLET BY MOUTH DAILY ORAL ACTIVE ANTHONY HERRERA SA QUE 2017 [facility] ATENOLOL 100MG TAB TAKE ONE TABLET BY MOUTH DAILY ORAL ACTIVE Stacey HOLLINGSWORTH 2008 [facility] ATORVASTATI N CA 20MG TAB TAKE ONE TABLET BY MOUTH DAILY ORAL ACTIVE Marcus PATEL IPTON L 2023 [facility] CLONIDINE HCL 0.2MG TAB TAKE ONE TABLET BY MOUTH QD ORAL ACTIVE Stacey HOLLINGSWORTH 2011 [facility] GLIMEPIRIDE 4MG TAB TAKE ONE TABLET BY MOUTH DAILY ORAL ACTIVE ANTHONY HERRERA SA QUE 2016 [facility] HYDROCHLORO THIAZIDE 25MG TAB TAKE ONE TABLET BY MOUTH DAILY ORAL ACTIVE CLICKANTHONY SA QUE 2014 [facility] INSULIN,GLA RGINE-YFGN 100UNIT/ML INJ INJECT 75 UNITS UNDER THE SKIN DAILY FOR BLOOD SUGAR. DISCARD VIAL 28 DAYS AFTER OPENING - DO NOT MIX WITHOTHE R INSULINS . *REPLACE S LANTUS VIAL* SUBCUT ANEOUS SUSPEND ED 01/01/2025 [id number] Marcus PATEL IPTON L 2023 7 [facility] INSULIN,GLA RGINE-YFGN 100UNIT/ML INJ INJECT 60 UNITS UNDER THE SKIN DAILY FOR BLOOD SUGAR. DISCARD VIAL 28 DAYS AFTER OPENING - DO NOT MIX WITHOTHE R INSULINS . *REPLACE S LANTUS VIAL* SUBCUT ANEOUS DISCONT INUED (EDIT) 01/12/2024 [id number] Marcus PATEL 2022 6 [facility] LISINOPRIL 40MG TAB TAKE ONE TABLET BY MOUTH EVERY MORNING ORAL ACTIVE ANTHONY HERRERA SA 2014 [facility] METFORMIN HCL 1000MG TAB TAKE ONE TABLET BY MOUTH TWICE A DAY ORAL ACTIVE Marcus PATELON Ismael 2018 [facility] MULTIVITAMI NS W/MINERALS CAP/TAB TAKE 1 CAP(S)/T AB BY MOUTH DAILY ORAL ACTIVE Marcus PATELON Ismael 2018 [facility] POLYETHYLEN E GLYCOL 3350 PWDR,ORAL MIX 1 HEAPING TABLESPO ONFUL IN LIQUID AND TAKE BY MOUTH DAILY FOR CONSTIPA TION. DISSOLVE IN 8 OZ JUICE/WA TER ORAL SUSPEND ED 01/01/2025 [id number] 5 Marcus PATELON L 2023 1530 [facility] POLYETHYLEN E GLYCOL 3350 PWDR,ORAL MIX 1 HEAPING TABLESPO ONFUL IN LIQUID AND TAKE BY MOUTH DAILY FOR CONSTIPA TION. DISSOLVE IN 8 OZ JUICE/WA TER ORAL DISCONT INUED 04/08/2024 [id number] 4 Marcus PATEL IPTON L 2023 1530 [facility] SITAGLIPTIN (EQV-ZITUVI O) 100MG TAB TAKE ONE TABLET BY MOUTH DAILY FOR BLOOD SUGAR -REPLACE S ALOGLIPT IN. STORE IN ORIGINAL CONTAINE R. OPENED BOTTLES MUST BE USED WITHIN 3 MONTHS ORAL ACTIVE 01/01/2025 [id number] 5 Marcus PATEL IPTON L 2023 90 [facility] SITAGLIPTIN (EQV-ZITUVI O) 100MG TAB TAKE ONE TABLET BY MOUTH DAILY FOR BLOOD SUGAR -REPLACE S ALOGLIPT IN. STORE IN ORIGINAL CONTAINE R. OPENED BOTTLES MUST BE USED WITHIN 3 MONTHS ORAL DISCONT INUED 01/01/2024 [id number] Marcus PATELON L 2023 90 [facility] Immunizations Combined list of available immunizations from the Department of Defense and [facility] Affairs facilities. Immunization Series Date Given Administered By Site Reaction Lot Number CVX Code Drug Batteryman Status Comments Source COVID-19 (MODERNA), MRNA, LNP-S, PF, 50 MCG/0.5 ML (AGES 12+ YEARS) 2023 LY CORDON L LEFT DELTO ID [id number] 312 complet ed [facility] INFLUENZA, HIGH-DOSE, TRIVALENT, PF 2023 LY CORDON L RIGHT DELTO ID [id number] A 135 complet ed [facility] PNEUMOCOCCAL CONJUGATE PCV20, POLYSACCHARID E [id number] CONJUGATE, ADJUVANT, PF 1 2022 216 complet ed HISTORICA L INFORMATI ON - FROM OTHER REGISTRY, [place] [facility] COVID-19 (PFIZER), MRNA, LNP-S, PF, CATRACHITA-SUCROSE, 30 MCG/0.3 ML (AGES 12+ YEARS) 1 2022 CORNELIO RANDOLPH N RIGHT DELTO ID [id number] 309 complet ed [facility] INFLUENZA, HIGH-DOSE, QUADRIVALENT 2022 CORNELIO RANDOLPH ER N LEFT DELTO ID [id number] A 197 complet ed [facility] COVID-19 (PFIZER), MRNA, LNP-S, BIVALENT BOOSTER, PF, 30 MCG/0.3 ML DOSE 1 2021 300 complet ed PFR; [id number]; 3 [facility] INFLUENZA, UNSPECIFIED FORMULATION 2021 88 complet ed [place] [facility] INFLUENZA, HIGH-DOSE, QUADRIVALENT 4 2021 197 complet ed HISTORICA L INFORMATI ON - FROM OTHER REGISTRY, [place] [facility] COVID-19 (MODERNA), MRNA, LNP-S, PF, 100 MCG/0.5ML DOSE OR 50 MCG/0.25ML DOSE 4 2021 207 complet ed HISTORICA L INFORMATI ON - FROM OTHER REGISTRY, [place] [facility] COVID-19 (MODERNA), MRNA, LNP-S, PF, 100 MCG/0.5ML DOSE OR 50 MCG/0.25ML DOSE 3 2020 207 complet ed HISTORICA L INFORMATI ON - FROM OTHER REGISTRY, [place] [facility] INFLUENZA, HIGH-DOSE, QUADRIVALENT 3 2020 197 complet ed HISTORICA L INFORMATI ON - FROM OTHER REGISTRY, [place] [facility] INFLUENZA, UNSPECIFIED FORMULATION 2020 88 complet ed [place] [facility] COVID-19 (MODERNA), MRNA, LNP-S, PF, 100 MCG/0.5 ML DOSE 2 2020 207 complet ed [place] [facility] COVID-19 (MODERNA), MRNA, LNP-S, PF, 100 MCG/0.5 ML DOSE 1 2020 207 complet ed [place] [facility] INFLUENZA, UNSPECIFIED FORMULATION 2019 88 complet ed [place] [facility] INFLUENZA, HIGH-DOSE, QUADRIVALENT 2 2019 197 complet ed HISTORICA L INFORMATI ON - FROM OTHER REGISTRY, [place] [facility] INFLUENZA, SEASONAL, INJECTABLE [address] Villaseñor--Lucio salinas [place] [facility] ZOSTER RECOMBINANT 2 2018 187 complet ed [facility] ZOSTER RECOMBINANT 1 2017 187 complet ed [facility] INFLUENZA, SEASONAL, INJECTABLE 2017 141 complet ed [facility] PNEUMOCOCCAL POLYSACCHARID E [id number] 2017 33 complet ed [facility] INFLUENZA A & B (HISTORICAL) 2016 88 complet ed [place] [facility] TDAP 2016 115 complet ed [place] [facility] ZOSTER LIVE 2016 NONE 121 complet ed [facility] INFLUENZA, HIGH DOSE SEASONAL 1 2015 135 complet ed HISTORICA L INFORMATI ON - FROM OTHER REGISTRY, [place] [facility] INFLUENZA A & B (HISTORICAL) 2015 88 complet ed [place] [facility] [id number] (HISTORICAL) 2014 133 complet ed [facility] DTP 2014 01 complet ed [facility] TDAP (HISTORICAL) 2014 115 complet ed [facility] INFLUENZA A & B (HISTORICAL) 2013 88 complet ed [place] [facility] INFLUENZA A & B (HISTORICAL) 2012 88 complet ed [place] [facility] FLU,3 YRS (HISTORICAL) 2011 88 complet ed [facility] INFLUENZA A & B (HISTORICAL) 2011 88 complet ed [facility] INFLUENZA A & B (HISTORICAL) 2009 88 complet ed [facility] FLU,3 YRS (HISTORICAL) 2008 88 complet ed [facility] PNEUMOCOCCAL, UNSPECIFIED FORMULATION 2008 109 complet ed [facility] INFLUENZA A & B (HISTORICAL) 2007 88 complet ed [place] [facility] TD(ADULT) UNSPECIFIED FORMULATION 2007 139 complet ed [place] [facility] Results Combined list of recent chemistry, hematology and other laboratory results from Department of Defense and Veterans Affairs, ranging from 15 months to all on record, depending upon the facility. Order Name Results Value Reference Range Date Interpretation Specimen Comments Source GLYCOHEM OGLOBIN HEMOGLOBIN A1C/HEMOGL OBIN.TOTAL IN BLOOD BY HPLC 9.0 4.4 - 5.6 04/09 H Specimen Type: BLOOD Comment: [place]-DoD guidelines for A1c interpretat ion: Glycemic control targets are based on Shared Decision Making between clinicians and patients. Criteria used to establish an A1c target recommendat ion can be found at https://www .va.gov/daniel lityandpati entsafety/ and include the use of result accuracy and precision(C V) of the A1c tests clinicians utilize at their own sites of practice. Values obtained from A1C measurement s can vary. For typical A1C assays, a reported value of 7.0 could actually be between 6.72 and 7.28 if measured by a reference method. A reported value of 9.0 could actually be between 8.73 and 9.27. Ref: https://ngs p.org/CAPda ta.asp. The in-house [employer] D-100 analyzer has a historical CV <= 2%. Contact the laboratory for further performance characteris tics of this assay. Ordering Provider: LUAN PATEL Report Released Date/Time: Mar 30, 2024 08:24 AM Reporting Lab: [facility] [address] [address] Performing Lab: [facility] [address] [address] [facility] PANEL 1 CREATININE [MASS/VOLU ME] IN SERUM OR PLASMA 1.23 mg/dL 0.72 - 1.25 04/09 Specimen Type: PLASMA Comment: Estimated Glomerular Filtration Rate (eGFR) calculated using the 2020 Chronic Kidney Disease-Epi demiology (CKD-EPI) Collaborati on creatinine equation; units of measure are mL/min/1.73 m2. Results are only valid for adults (>=18 years) whose serum creatinine is in a steady state. eGFR calculation s are not valid for patients with acute kidney injury and for patients on dialysis. Creatinine- based estimates of kidney function may also be inaccurate in patients with reduced creatinine generation due to decreased muscle mass (e.g., malnutritio n, severe hypoalbumin emia, sarcopenia, chronic neuromuscul ar disease, amputations , severe heart failure or liver disease) and in patients with increased creatinine generation due to increased muscle mass (e.g., muscle builders, anabolic steroids) or increased dietary intake. As drug clearance is proportiona l to total GFR and not GFR indexed to body surface area (BSA), in individuals with a BSA substantial ly different than 1.73 m2, drug dosing should be based on the reported eGFR value de-indexed from BSA by multiplying by the individual' s BSA and dividing by 1.73. CKD is diagnosed based on abnormaliti es of kidney structure or function, present for >3 months, with implication s for health and disease. CKD is classified and staged based on cause, eGFR and albuminuria (quantified as urine albumin to creatinine ratio). An eGFR >60 mL/min/1.73 m2 in the absence of increased urine albumin excretion or structural abnormaliti es does not represent CKD. eGFR CKD Interpretat ion (mL/min/1.7 3 m2) stage >=90 G1 Normal 60-89 G2 Mild decrease 45-59 G3A Mild to moderate decrease 30-44 G3B Moderate to severe decrease 15-29 G4 Severe decrease <15 G5 Kidney failure Ordering Provider: LUAN PATEL Report Released Date/Time: Mar 30, 2024 08:24 AM Reporting Lab: [facility] [address] [address] Performing Lab: [facility] [address] [facility] PANEL 1 UREA NITROGEN [MASS/VOLU ME] IN SERUM OR PLASMA 21 mg/dL 04/09 Specimen Type: PLASMA Comment: Estimated Glomerular Filtration Rate (eGFR) calculated using the 2020 Chronic Kidney Disease-Epi demiology (CKD-EPI) Collaborati on creatinine equation; units of measure are mL/min/1.73 m2. Results are only valid for adults (>=18 years) whose serum creatinine is in a steady state. eGFR calculation s are not valid for patients with acute kidney injury and for patients on dialysis. Creatinine- based estimates of kidney function may also be inaccurate in patients with reduced creatinine generation due to decreased muscle mass (e.g., malnutritio n, severe hypoalbumin emia, sarcopenia, chronic neuromuscul ar disease, amputations , severe heart failure or liver disease) and in patients with increased creatinine generation due to increased muscle mass (e.g., muscle builders, anabolic steroids) or increased dietary intake. As drug clearance is proportiona l to total GFR and not GFR indexed to body surface area (BSA), in individuals with a BSA substantial ly different than 1.73 m2, drug dosing should be based on the reported eGFR value de-indexed from BSA by multiplying by the individual' s BSA and dividing by 1.73. CKD is diagnosed based on abnormaliti es of kidney structure or function, present for >3 months, with implication s for health and disease. CKD is classified and staged based on cause, eGFR and albuminuria (quantified as urine albumin to creatinine ratio). An eGFR >60 mL/min/1.73 m2 in the absence of increased urine albumin excretion or structural abnormaliti es does not represent CKD. eGFR CKD Interpretat ion (mL/min/1.7 3 m2) stage >=90 G1 Normal 60-89 G2 Mild decrease 45-59 G3A Mild to moderate decrease 30-44 G3B Moderate to severe decrease 15-29 G4 Severe decrease <15 G5 Kidney failure Ordering Provider: LUAN PATEL Report Released Date/Time: Mar 30, 2024 08:24 AM Reporting Lab: [facility] [address] [address] Performing Lab: [facility] [address] [address] [facility] PANEL 1 GLUCOSE [MASS/VOLU ME] IN SERUM OR PLASMA 85 mg/dL 74 - 100 04/09 Specimen Type: PLASMA Comment: Estimated Glomerular Filtration Rate (eGFR) calculated using the 2020 Chronic Kidney Disease-Epi demiology (CKD-EPI) Collaborati on creatinine equation; units of measure are mL/min/1.73 m2. Results are only valid for adults (>=18 years) whose serum creatinine is in a steady state. eGFR calculation s are not valid for patients with acute kidney injury and for patients on dialysis. Creatinine- based estimates of kidney function may also be inaccurate in patients with reduced creatinine generation due to decreased muscle mass (e.g., malnutritio n, severe hypoalbumin emia, sarcopenia, chronic neuromuscul ar disease, amputations , severe heart failure or liver disease) and in patients with increased creatinine generation due to increased muscle mass (e.g., muscle builders, anabolic steroids) or increased dietary intake. As drug clearance is proportiona l to total GFR and not GFR indexed to body surface area (BSA), in individuals with a BSA substantial ly different than 1.73 m2, drug dosing should be based on the reported eGFR value de-indexed from BSA by multiplying by the individual' s BSA and dividing by 1.73. CKD is diagnosed based on abnormaliti es of kidney structure or function, present for >3 months, with implication s for health and disease. CKD is classified and staged based on cause, eGFR and albuminuria (quantified as urine albumin to creatinine ratio). An eGFR >60 mL/min/1.73 m2 in the absence of increased urine albumin excretion or structural abnormaliti es does not represent CKD. eGFR CKD Interpretat ion (mL/min/1.7 3 m2) stage >=90 G1 Normal 60-89 G2 Mild decrease 45-59 G3A Mild to moderate decrease 30-44 G3B Moderate to severe decrease 15-29 G4 Severe decrease <15 G5 Kidney failure Ordering Provider: LUAN PATEL Report Released Date/Time: Mar 30, 2024 08:24 AM Reporting Lab: [facility] [address] [address] Performing Lab: [facility] [address] [address] [facility] PANEL 1 SODIUM [MOLES/VOL UME] IN SERUM OR PLASMA 142 mmol/L 136 - 145 04/09 Specimen Type: PLASMA Comment: Estimated Glomerular Filtration Rate (eGFR) calculated using the 2020 Chronic Kidney Disease-Epi demiology (CKD-EPI) Collaborati on creatinine equation; units of measure are mL/min/1.73 m2. Results are only valid for adults (>=18 years) whose serum creatinine is in a steady state. eGFR calculation s are not valid for patients with acute kidney injury and for patients on dialysis. Creatinine- based estimates of kidney function may also be inaccurate in patients with reduced creatinine generation due to decreased muscle mass (e.g., malnutritio n, severe hypoalbumin emia, sarcopenia, chronic neuromuscul ar disease, amputations , severe heart failure or liver disease) and in patients with increased creatinine generation due to increased muscle mass (e.g., muscle builders, anabolic steroids) or increased dietary intake. As drug clearance is proportiona l to total GFR and not GFR indexed to body surface area (BSA), in individuals with a BSA substantial ly different than 1.73 m2, drug dosing should be based on the reported eGFR value de-indexed from BSA by multiplying by the individual' s BSA and dividing by 1.73. CKD is diagnosed based on abnormaliti es of kidney structure or function, present for >3 months, with implication s for health and disease. CKD is classified and staged based on cause, eGFR and albuminuria (quantified as urine albumin to creatinine ratio). An eGFR >60 mL/min/1.73 m2 in the absence of increased urine albumin excretion or structural abnormaliti es does not represent CKD. eGFR CKD Interpretat ion (mL/min/1.7 3 m2) stage >=90 G1 Normal 60-89 G2 Mild decrease 45-59 G3A Mild to moderate decrease 30-44 G3B Moderate to severe decrease 15-29 G4 Severe decrease <15 G5 Kidney failure Ordering Provider: LUAN PATEL Report Released Date/Time: Mar 30, 2024 08:24 AM Reporting Lab: [facility] [address] [address] Performing Lab: [facility] [address] [address] [facility] PANEL 1 POTASSIUM [MOLES/VOL UME] IN SERUM OR PLASMA 4.3 mmol/L 3.5 - 5.1 04/09 Specimen Type: PLASMA Comment: Estimated Glomerular Filtration Rate (eGFR) calculated using the 2020 Chronic Kidney Disease-Epi demiology (CKD-EPI) Collaborati on creatinine equation; units of measure are mL/min/1.73 m2. Results are only valid for adults (>=18 years) whose serum creatinine is in a steady state. eGFR calculation s are not valid for patients with acute kidney injury and for patients on dialysis. Creatinine- based estimates of kidney function may also be inaccurate in patients with reduced creatinine generation due to decreased muscle mass (e.g., malnutritio n, severe hypoalbumin emia, sarcopenia, chronic neuromuscul ar disease, amputations , severe heart failure or liver disease) and in patients with increased creatinine generation due to increased muscle mass (e.g., muscle builders, anabolic steroids) or increased dietary intake. As drug clearance is proportiona l to total GFR and not GFR indexed to body surface area (BSA), in individuals with a BSA substantial ly different than 1.73 m2, drug dosing should be based on the reported eGFR value de-indexed from BSA by multiplying by the individual' s BSA and dividing by 1.73. CKD is diagnosed based on abnormaliti es of kidney structure or function, present for >3 months, with implication s for health and disease. CKD is classified and staged based on cause, eGFR and albuminuria (quantified as urine albumin to creatinine ratio). An eGFR >60 mL/min/1.73 m2 in the absence of increased urine albumin excretion or structural abnormaliti es does not represent CKD. eGFR CKD Interpretat ion (mL/min/1.7 3 m2) stage >=90 G1 Normal 60-89 G2 Mild decrease 45-59 G3A Mild to moderate decrease 30-44 G3B Moderate to severe decrease 15-29 G4 Severe decrease <15 G5 Kidney failure Ordering Provider: LUAN PATEL Report Released Date/Time: Mar 30, 2024 08:24 AM Reporting Lab: [facility] [address] [address] Performing Lab: [facility] [address] [address] [facility] PANEL 1 CHLORIDE [MOLES/VOL UME] IN SERUM OR PLASMA 107 mmol/L 98 - 107 04/09 Specimen Type: PLASMA Comment: Estimated Glomerular Filtration Rate (eGFR) calculated using the 2020 Chronic Kidney Disease-Epi demiology (CKD-EPI) Collaborati on creatinine equation; units of measure are mL/min/1.73 m2. Results are only valid for adults (>=18 years) whose serum creatinine is in a steady state. eGFR calculation s are not valid for patients with acute kidney injury and for patients on dialysis. Creatinine- based estimates of kidney function may also be inaccurate in patients with reduced creatinine generation due to decreased muscle mass (e.g., malnutritio n, severe hypoalbumin emia, sarcopenia, chronic neuromuscul ar disease, amputations , severe heart failure or liver disease) and in patients with increased creatinine generation due to increased muscle mass (e.g., muscle builders, anabolic steroids) or increased dietary intake. As drug clearance is proportiona l to total GFR and not GFR indexed to body surface area (BSA), in individuals with a BSA substantial ly different than 1.73 m2, drug dosing should be based on the reported eGFR value de-indexed from BSA by multiplying by the individual' s BSA and dividing by 1.73. CKD is diagnosed based on abnormaliti es of kidney structure or function, present for >3 months, with implication s for health and disease. CKD is classified and staged based on cause, eGFR and albuminuria (quantified as urine albumin to creatinine ratio). An eGFR >60 mL/min/1.73 m2 in the absence of increased urine albumin excretion or structural abnormaliti es does not represent CKD. eGFR CKD Interpretat ion (mL/min/1.7 3 m2) stage >=90 G1 Normal 60-89 G2 Mild decrease 45-59 G3A Mild to moderate decrease 30-44 G3B Moderate to severe decrease 15-29 G4 Severe decrease <15 G5 Kidney failure Ordering Provider: LUAN PATEL Report Released Date/Time: Mar 30, 2024 08:24 AM Reporting Lab: [facility] [address] [address] Performing Lab: [facility] [address] [address] [facility] PANEL 1 CARBON DIOXIDE, TOTAL [MOLES/VOL UME] IN SERUM OR PLASMA 23 mmol/L - 04/09 Specimen Type: PLASMA Comment: Estimated Glomerular Filtration Rate (eGFR) calculated using the 2020 Chronic Kidney Disease-Epi demiology (CKD-EPI) Collaborati on creatinine equation; units of measure are mL/min/1.73 m2. Results are only valid for adults (>=18 years) whose serum creatinine is in a steady state. eGFR calculation s are not valid for patients with acute kidney injury and for patients on dialysis. Creatinine- based estimates of kidney function may also be inaccurate in patients with reduced creatinine generation due to decreased muscle mass (e.g., malnutritio n, severe hypoalbumin emia, sarcopenia, chronic neuromuscul ar disease, amputations , severe heart failure or liver disease) and in patients with increased creatinine generation due to increased muscle mass (e.g., muscle builders, anabolic steroids) or increased dietary intake. As drug clearance is proportiona l to total GFR and not GFR indexed to body surface area (BSA), in individuals with a BSA substantial ly different than 1.73 m2, drug dosing should be based on the reported eGFR value de-indexed from BSA by multiplying by the individual' s BSA and dividing by 1.73. CKD is diagnosed based on abnormaliti es of kidney structure or function, present for >3 months, with implication s for health and disease. CKD is classified and staged based on cause, eGFR and albuminuria (quantified as urine albumin to creatinine ratio). An eGFR >60 mL/min/1.73 m2 in the absence of increased urine albumin excretion or structural abnormaliti es does not represent CKD. eGFR CKD Interpretat ion (mL/min/1.7 3 m2) stage >=90 G1 Normal 60-89 G2 Mild decrease 45-59 G3A Mild to moderate decrease 30-44 G3B Moderate to severe decrease 15-29 G4 Severe decrease <15 G5 Kidney failure Ordering Provider: LUAN PATEL Report Released Date/Time: Mar 30, 2024 08:24 AM Reporting Lab: [facility] [address] [phone] Performing Lab: [facility] [address] [address] [facility] PANEL 1 CALCIUM [MASS/VOLU ME] IN SERUM OR PLASMA 9.1 mg/dL 8.4 - 10.2 04/09 Specimen Type: PLASMA Comment: Estimated Glomerular Filtration Rate (eGFR) calculated using the 2020 Chronic Kidney Disease-Epi demiology (CKD-EPI) Collaborati on creatinine equation; units of measure are mL/min/1.73 m2. Results are only valid for adults (>=18 years) whose serum creatinine is in a steady state. eGFR calculation s are not valid for patients with acute kidney injury and for patients on dialysis. Creatinine- based estimates of kidney function may also be inaccurate in patients with reduced creatinine generation due to decreased muscle mass (e.g., malnutritio n, severe hypoalbumin emia, sarcopenia, chronic neuromuscul ar disease, amputations , severe heart failure or liver disease) and in patients with increased creatinine generation due to increased muscle mass (e.g., muscle builders, anabolic steroids) or increased dietary intake. As drug clearance is proportiona l to total GFR and not GFR indexed to body surface area (BSA), in individuals with a BSA substantial ly different than 1.73 m2, drug dosing should be based on the reported eGFR value de-indexed from BSA by multiplying by the individual' s BSA and dividing by 1.73. CKD is diagnosed based on abnormaliti es of kidney structure or function, present for >3 months, with implication s for health and disease. CKD is classified and staged based on cause, eGFR and albuminuria (quantified as urine albumin to creatinine ratio). An eGFR >60 mL/min/1.73 m2 in the absence of increased urine albumin excretion or structural abnormaliti es does not represent CKD. eGFR CKD Interpretat ion (mL/min/1.7 3 m2) stage >=90 G1 Normal 60-89 G2 Mild decrease 45-59 G3A Mild to moderate decrease 30-44 G3B Moderate to severe decrease 15-29 G4 Severe decrease <15 G5 Kidney failure Ordering Provider: LUAN PATEL Report Released Date/Time: Mar 30, 2024 08:24 AM Reporting Lab: [facility] [address] [phone] Performing Lab: [facility] [address] [address] [facility] PANEL 1 ANION GAP 3 IN SERUM OR PLASMA 12 meq/L 3 - 19 04/09 Specimen Type: PLASMA Comment: Estimated Glomerular Filtration Rate (eGFR) calculated using the 2020 Chronic Kidney Disease-Epi demiology (CKD-EPI) Collaborati on creatinine equation; units of measure are mL/min/1.73 m2. Results are only valid for adults (>=18 years) whose serum creatinine is in a steady state. eGFR calculation s are not valid for patients with acute kidney injury and for patients on dialysis. Creatinine- based estimates of kidney function may also be inaccurate in patients with reduced creatinine generation due to decreased muscle mass (e.g., malnutritio n, severe hypoalbumin emia, sarcopenia, chronic neuromuscul ar disease, amputations , severe heart failure or liver disease) and in patients with increased creatinine generation due to increased muscle mass (e.g., muscle builders, anabolic steroids) or increased dietary intake. As drug clearance is proportiona l to total GFR and not GFR indexed to body surface area (BSA), in individuals with a BSA substantial ly different than 1.73 m2, drug dosing should be based on the reported eGFR value de-indexed from BSA by multiplying by the individual' s BSA and dividing by 1.73. CKD is diagnosed based on abnormaliti es of kidney structure or function, present for >3 months, with implication s for health and disease. CKD is classified and staged based on cause, eGFR and albuminuria (quantified as urine albumin to creatinine ratio). An eGFR >60 mL/min/1.73 m2 in the absence of increased urine albumin excretion or structural abnormaliti es does not represent CKD. eGFR CKD Interpretat ion (mL/min/1.7 3 m2) stage >=90 G1 Normal 60-89 G2 Mild decrease 45-59 G3A Mild to moderate decrease 30-44 G3B Moderate to severe decrease 15-29 G4 Severe decrease <15 G5 Kidney failure Ordering Provider: LUAN PATEL Report Released Date/Time: Mar 30, 2024 08:24 AM Reporting Lab: [facility] [address] [phone] Performing Lab: [facility] [address] [address] [facility] PANEL 1 GLOMERULAR FILTRATION RATE/1.73 SQ M.PREDICTE D [VOLUME RATE/AREA] IN SERUM, PLASMA OR BLOOD BY CREATININE -BASED FORMULA (CKD-EPI 2020) 61 04/09 Specimen Type: PLASMA Comment: Estimated Glomerular Filtration Rate (eGFR) calculated using the 2020 Chronic Kidney Disease-Epi demiology (CKD-EPI) Collaborati on creatinine equation; units of measure are mL/min/1.73 m2. Results are only valid for adults (>=18 years) whose serum creatinine is in a steady state. eGFR calculation s are not valid for patients with acute kidney injury and for patients on dialysis. Creatinine- based estimates of kidney function may also be inaccurate in patients with reduced creatinine generation due to decreased muscle mass (e.g., malnutritio n, severe hypoalbumin emia, sarcopenia, chronic neuromuscul ar disease, amputations , severe heart failure or liver disease) and in patients with increased creatinine generation due to increased muscle mass (e.g., muscle builders, anabolic steroids) or increased dietary intake. As drug clearance is proportiona l to total GFR and not GFR indexed to body surface area (BSA), in individuals with a BSA substantial ly different than 1.73 m2, drug dosing should be based on the reported eGFR value de-indexed from BSA by multiplying by the individual' s BSA and dividing by 1.73. CKD is diagnosed based on abnormaliti es of kidney structure or function, present for >3 months, with implication s for health and disease. CKD is classified and staged based on cause, eGFR and albuminuria (quantified as urine albumin to creatinine ratio). An eGFR >60 mL/min/1.73 m2 in the absence of increased urine albumin excretion or structural abnormaliti es does not represent CKD. eGFR CKD Interpretat ion (mL/min/1.7 3 m2) stage >=90 G1 Normal 60-89 G2 Mild decrease 45-59 G3A Mild to moderate decrease 30-44 G3B Moderate to severe decrease 15-29 G4 Severe decrease <15 G5 Kidney failure Ordering Provider: LUAN PATEL Report Released Date/Time: Mar 30, 2024 08:24 AM Reporting Lab: [address] [address] Performing Lab: [address] [id number] [place] [address] CBC/PLT LEUKOCYTES [#/VOLUME] IN BLOOD BY AUTOMATED COUNT 11.0 10*3/uL 5.0 - 10.0 12/29 H Specimen Type: BLOOD No comment entered. Ordering Provider: LUAN PATEL Report Released Date/Time: Dec 30, 2023 08:19 AM Reporting Lab: [address] [address] Performing Lab: [place] [id number] [place] [address] CBC/PLT ERYTHROCYT ES [#/VOLUME] IN BLOOD BY AUTOMATED COUNT 5.12 10*6/uL 4.6 - 6.2 12/29 Specimen Type: BLOOD No comment entered. Ordering Provider: LUAN PATEL Report Released Date/Time: Dec 30, 2023 08:19 AM Reporting Lab: [address] [address] Performing Lab: [place] [id number] [place] [address] CBC/PLT HEMOGLOBIN [MASS/VOLU ME] IN BLOOD 14.4 g/dL 14.0 - 18.0 12/29 Specimen Type: BLOOD No comment entered. Ordering Provider: LUAN PATEL Report Released Date/Time: Dec 30, 2023 08:19 AM Reporting Lab: [address] [address] Performing Lab: [address] [address] [facility] CBC/PLT HEMATOCRIT [VOLUME FRACTION] OF BLOOD BY AUTOMATED COUNT 45.0 42.0 - 52.0 12/29 Specimen Type: BLOOD No comment entered. Ordering Provider: LUAN PATEL Report Released Date/Time: Dec 30, 2023 08:19 AM Reporting Lab: [address] [address] Performing Lab: [address] [address] [facility] CBC/PLT MCV [ENTITIC VOLUME] BY AUTOMATED COUNT 87.9 fL 80.0 - 94.0 12/29 Specimen Type: BLOOD No comment entered. Ordering Provider: LUAN PATEL Report Released Date/Time: Dec 30, 2023 08:19 AM Reporting Lab: [place] [id number] Performing Lab: [address] [address] [facility] CBC/PLT MCH [ENTITIC MASS] BY AUTOMATED COUNT 28.1 pg 27.0 - 31.0 12/29 Specimen Type: BLOOD No comment entered. Ordering Provider: LUAN PATEL Report Released Date/Time: Dec 30, 2023 08:19 AM Reporting Lab: [address] [address] Performing Lab: [place] [id number] [facility] CBC/PLT MCHC [MASS/VOLU ME] BY AUTOMATED COUNT 32.0 g/dL 32.0 - 36.0 12/29 Specimen Type: BLOOD No comment entered. Ordering Provider: LUAN PATEL Report Released Date/Time: Dec 30, 2023 08:19 AM Reporting Lab: [address] [address] Performing Lab: [address] [address] [facility] CBC/PLT PLATELETS [#/VOLUME] IN BLOOD 221 10*3/uL 150 - 450 12/29 Specimen Type: BLOOD No comment entered. Ordering Provider: LUAN PATEL Report Released Date/Time: Dec 30, 2023 08:19 AM Reporting Lab: [address] [address] Performing Lab: [address] [address] [facility] CBC/PLT PLATELET MEAN VOLUME [ENTITIC VOLUME] IN BLOOD 11.1 fL 9.0 - 13.1 12/29 Specimen Type: BLOOD No comment entered. Ordering Provider: LUAN PATEL Report Released Date/Time: Dec 30, 2023 08:19 AM Reporting Lab: [place] [id number] Performing Lab: [address] CBC/PLT ERYTHROCYT E DISTRIBUTI ON WIDTH [ENTITIC VOLUME] BY AUTOMATED COUNT 12.7 11.0 - 16.0 12/29 Specimen Type: BLOOD No comment entered. Ordering Provider: LUAN PATEL Report Released Date/Time: Dec 30, 2023 08:19 AM Reporting Lab: [place] [id number] Performing Lab: [address] CBC/PLT NUCLEATED ERYTHROCYT ES/100 ERYTHROCYT ES IN BLOOD 0.0 0.0 - 0.0 12/29 Specimen Type: BLOOD No comment entered. Ordering Provider: LUAN PATEL Report Released Date/Time: Dec 30, 2023 08:19 AM Reporting Lab: [place] [id number] Performing Lab: [place] [id number] GLYCOHEM OGLOBIN HEMOGLOBIN A1C/HEMOGL OBIN.TOTAL IN BLOOD BY HPLC 9.1 4.4 - 6.4 12/29 H Specimen Type: BLOOD Comment: [facility] guidelines for A1c interpretat ion: Glycemic control targets are based on Shared Decision Making between clinicians and patients. Criteria used to establish an A1c target recommendat ion can be found at https://www .va.gov/daniel lityandpati entsafety/ and include the use of result accuracy and precision(C V) of the A1c tests clinicians utilize at their own sites of practice. Values obtained from A1C measurement s can vary. For typical A1C assays, a reported value of 7.0 could actually be between 6.72 and 7.28 if measured by a reference method. A reported value of 9.0 could actually be between 8.73 and 9.27. Ref: https://ngs p.org/CAPda ta.asp. The in-house [employer] D-100 analyzer has a historical CV <= 2%. Contact the laboratory for further performance characteris tics of this assay. Ordering Provider: LUAN PATEL Report Released Date/Time: Dec 30, 2023 08:19 AM Reporting Lab: [address] [phone] Performing Lab: [address] [address] [facility] LIPID PROFILE CHOLESTERO L [MASS/VOLU ME] IN SERUM OR PLASMA 125 mg/dL 0 - 199 12/29 Specimen Type: PLASMA Comment: Estimated Glomerular Filtration Rate (eGFR) calculated using the 2020 Chronic Kidney Disease-Epi demiology (CKD-EPI) Collaborati on creatinine equation; units of measure are mL/min/1.73 m2. Results are only valid for adults (>=18 years) whose serum creatinine is in a steady state. eGFR calculation s are not valid for patients with acute kidney injury and for patients on dialysis. Creatinine- based estimates of kidney function may also be inaccurate in patients with reduced creatinine generation due to decreased muscle mass (e.g., malnutritio n, severe hypoalbumin emia, sarcopenia, chronic neuromuscul ar disease, amputations , severe heart failure or liver disease) and in patients with increased creatinine generation due to increased muscle mass (e.g., muscle builders, anabolic steroids) or increased dietary intake. As drug clearance is proportiona l to total GFR and not GFR indexed to body surface area (BSA), in individuals with a BSA substantial ly different than 1.73 m2, drug dosing should be based on the reported eGFR value de-indexed from BSA by multiplying by the individual' s BSA and dividing by 1.73. CKD is diagnosed based on abnormaliti es of kidney structure or function, present for >3 months, with implication s for health and disease. CKD is classified and staged based on cause, eGFR and albuminuria (quantified as urine albumin to creatinine ratio). An eGFR >60 mL/min/1.73 m2 in the absence of increased urine albumin excretion or structural abnormaliti es does not represent CKD. eGFR CKD Interpretat ion (mL/min/1.7 3 m2) stage >=90 G1 Normal 60-89 G2 Mild decrease 45-59 G3A Mild to moderate decrease 30-44 G3B Moderate to severe decrease 15-29 G4 Severe decrease <15 G5 Kidney failure Ordering Provider: LUAN PATEL Report Released Date/Time: Dec 30, 2023 08:19 AM Reporting Lab: [facility] [address] [phone] Performing Lab: [facility] [address] [phone] [facility] LIPID PROFILE TRIGLYCERI DE [MASS/VOLU ME] IN SERUM OR PLASMA 151 mg/dL 0 - 149 12/29 H Specimen Type: PLASMA Comment: Estimated Glomerular Filtration Rate (eGFR) calculated using the 2020 Chronic Kidney Disease-Epi demiology (CKD-EPI) Collaborati on creatinine equation; units of measure are mL/min/1.73 m2. Results are only valid for adults (>=18 years) whose serum creatinine is in a steady state. eGFR calculation s are not valid for patients with acute kidney injury and for patients on dialysis. Creatinine- based estimates of kidney function may also be inaccurate in patients with reduced creatinine generation due to decreased muscle mass (e.g., malnutritio n, severe hypoalbumin emia, sarcopenia, chronic neuromuscul ar disease, amputations , severe heart failure or liver disease) and in patients with increased creatinine generation due to increased muscle mass (e.g., muscle builders, anabolic steroids) or increased dietary intake. As drug clearance is proportiona l to total GFR and not GFR indexed to body surface area (BSA), in individuals with a BSA substantial ly different than 1.73 m2, drug dosing should be based on the reported eGFR value de-indexed from BSA by multiplying by the individual' s BSA and dividing by 1.73. CKD is diagnosed based on abnormaliti es of kidney structure or function, present for >3 months, with implication s for health and disease. CKD is classified and staged based on cause, eGFR and albuminuria (quantified as urine albumin to creatinine ratio). An eGFR >60 mL/min/1.73 m2 in the absence of increased urine albumin excretion or structural abnormaliti es does not represent CKD. eGFR CKD Interpretat ion (mL/min/1.7 3 m2) stage >=90 G1 Normal 60-89 G2 Mild decrease 45-59 G3A Mild to moderate decrease 30-44 G3B Moderate to severe decrease 15-29 G4 Severe decrease <15 G5 Kidney failure Ordering Provider: LAUN PATEL Report Released Date/Time: Dec 30, 2023 08:19 AM Reporting Lab: [facility] [address] [phone] Performing Lab: [facility] [address] [phone] [facility] LIPID PROFILE CHOLESTERO L IN HDL [MASS/VOLU ME] IN SERUM OR PLASMA 28 mg/dL 40 - 69 12/29 L Specimen Type: PLASMA Comment: Estimated Glomerular Filtration Rate (eGFR) calculated using the 2020 Chronic Kidney Disease-Epi demiology (CKD-EPI) Collaborati on creatinine equation; units of measure are mL/min/1.73 m2. Results are only valid for adults (>=18 years) whose serum creatinine is in a steady state. eGFR calculation s are not valid for patients with acute kidney injury and for patients on dialysis. Creatinine- based estimates of kidney function may also be inaccurate in patients with reduced creatinine generation due to decreased muscle mass (e.g., malnutritio n, severe hypoalbumin emia, sarcopenia, chronic neuromuscul ar disease, amputations , severe heart failure or liver disease) and in patients with increased creatinine generation due to increased muscle mass (e.g., muscle builders, anabolic steroids) or increased dietary intake. As drug clearance is proportiona l to total GFR and not GFR indexed to body surface area (BSA), in individuals with a BSA substantial ly different than 1.73 m2, drug dosing should be based on the reported eGFR value de-indexed from BSA by multiplying by the individual' s BSA and dividing by 1.73. CKD is diagnosed based on abnormaliti es of kidney structure or function, present for >3 months, with implication s for health and disease. CKD is classified and staged based on cause, eGFR and albuminuria (quantified as urine albumin to creatinine ratio). An eGFR >60 mL/min/1.73 m2 in the absence of increased urine albumin excretion or structural abnormaliti es does not represent CKD. eGFR CKD Interpretat ion (mL/min/1.7 3 m2) stage >=90 G1 Normal 60-89 G2 Mild decrease 45-59 G3A Mild to moderate decrease 30-44 G3B Moderate to severe decrease 15-29 G4 Severe decrease <15 G5 Kidney failure Ordering Provider: LUAN PATEL Report Released Date/Time: Dec 30, 2023 08:19 AM Reporting Lab: [facility] [address] [phone] Performing Lab: [facility] [address] [phone] [facility] LIPID PROFILE CHOLESTERO L IN LDL [MASS/VOLU ME] IN SERUM OR PLASMA BY DIRECT ASSAY 81 mg/dL 0 - 100 12/29 Specimen Type: PLASMA Comment: Estimated Glomerular Filtration Rate (eGFR) calculated using the 2020 Chronic Kidney Disease-Epi demiology (CKD-EPI) Collaborati on creatinine equation; units of measure are mL/min/1.73 m2. Results are only valid for adults (>=18 years) whose serum creatinine is in a steady state. eGFR calculation s are not valid for patients with acute kidney injury and for patients on dialysis. Creatinine- based estimates of kidney function may also be inaccurate in patients with reduced creatinine generation due to decreased muscle mass (e.g., malnutritio n, severe hypoalbumin emia, sarcopenia, chronic neuromuscul ar disease, amputations , severe heart failure or liver disease) and in patients with increased creatinine generation due to increased muscle mass (e.g., muscle builders, anabolic steroids) or increased dietary intake. As drug clearance is proportiona l to total GFR and not GFR indexed to body surface area (BSA), in individuals with a BSA substantial ly different than 1.73 m2, drug dosing should be based on the reported eGFR value de-indexed from BSA by multiplying by the individual' s BSA and dividing by 1.73. CKD is diagnosed based on abnormaliti es of kidney structure or function, present for >3 months, with implication s for health and disease. CKD is classified and staged based on cause, eGFR and albuminuria (quantified as urine albumin to creatinine ratio). An eGFR >60 mL/min/1.73 m2 in the absence of increased urine albumin excretion or structural abnormaliti es does not represent CKD. eGFR CKD Interpretat ion (mL/min/1.7 3 m2) stage >=90 G1 Normal 60-89 G2 Mild decrease 45-59 G3A Mild to moderate decrease 30-44 G3B Moderate to severe decrease 15-29 G4 Severe decrease <15 G5 Kidney failure Ordering Provider: LUAN PATEL Report Released Date/Time: Dec 30, 2023 08:19 AM Reporting Lab: [place] [id number] Performing Lab: [place] [id number] [facility] MICROALB UMIN/CRE AT RATIO CREATININE [MASS/VOLU ME] IN URINE 79.2 mg/dL 12/29 Specimen Type: URINE No comment entered. Ordering Provider: LUAN PATEL Report Released Date/Time: Dec 30, 2023 08:19 AM Reporting Lab: [place] [id number] Performing Lab: [place] [id number] [facility] MICROALB UMIN/CRE AT RATIO MICROALBUM IN [MASS/VOLU ME] IN URINE 174.5 mg/L 0.0 - 30.0 12/29 H Specimen Type: URINE No comment entered. Ordering Provider: LUAN PATEL Report Released Date/Time: Dec 30, 2023 08:19 AM Reporting Lab: [address] [phone] Performing Lab: [address] [phone] [facility] MICROALB UMIN/CRE AT RATIO MICROALBUM IN/CREATIN INE [MASS RATIO] IN URINE 220.3 ug/mg{cr eat} 12/29 Specimen Type: URINE No comment entered. Ordering Provider: LUAN PATEL Report Released Date/Time: Dec 30, 2023 08:19 AM Reporting Lab: [address] [phone] Performing Lab: [address] [phone] [facility] PANEL 5 CREATININE [MASS/VOLU ME] IN SERUM OR PLASMA 1.26 mg/dL 0.72 - 1.25 12/29 H Specimen Type: PLASMA Comment: Estimated Glomerular Filtration Rate (eGFR) calculated using the 2020 Chronic Kidney Disease-Epi demiology (CKD-EPI) Collaborati on creatinine equation; units of measure are mL/min/1.73 m2. Results are only valid for adults (>=18 years) whose serum creatinine is in a steady state. eGFR calculation s are not valid for patients with acute kidney injury and for patients on dialysis. Creatinine- based estimates of kidney function may also be inaccurate in patients with reduced creatinine generation due to decreased muscle mass (e.g., malnutritio n, severe hypoalbumin emia, sarcopenia, chronic neuromuscul ar disease, amputations , severe heart failure or liver disease) and in patients with increased creatinine generation due to increased muscle mass (e.g., muscle builders, anabolic steroids) or increased dietary intake. As drug clearance is proportiona l to total GFR and not GFR indexed to body surface area (BSA), in individuals with a BSA substantial ly different than 1.73 m2, drug dosing should be based on the reported eGFR value de-indexed from BSA by multiplying by the individual' s BSA and dividing by 1.73. CKD is diagnosed based on abnormaliti es of kidney structure or function, present for >3 months, with implication s for health and disease. CKD is classified and staged based on cause, eGFR and albuminuria (quantified as urine albumin to creatinine ratio). An eGFR >60 mL/min/1.73 m2 in the absence of increased urine albumin excretion or structural abnormaliti es does not represent CKD. eGFR CKD Interpretat ion (mL/min/1.7 3 m2) stage >=90 G1 Normal 60-89 G2 Mild decrease 45-59 G3A Mild to moderate decrease 30-44 G3B Moderate to severe decrease 15-29 G4 Severe decrease <15 G5 Kidney failure Ordering Provider: LUAN PATEL Report Released Date/Time: Dec 30, 2023 08:19 AM Reporting Lab: JOANNA BISHOP [address] [address] Performing Lab: JOANNA BISHOP [address] [address] [facility] PANEL 5 UREA NITROGEN [MASS/VOLU ME] IN SERUM OR PLASMA 20 mg/dL 12/29 Specimen Type: PLASMA Comment: Estimated Glomerular Filtration Rate (eGFR) calculated using the 2020 Chronic Kidney Disease-Epi demiology (CKD-EPI) Collaborati on creatinine equation; units of measure are mL/min/1.73 m2. Results are only valid for adults (>=18 years) whose serum creatinine is in a steady state. eGFR calculation s are not valid for patients with acute kidney injury and for patients on dialysis. Creatinine- based estimates of kidney function may also be inaccurate in patients with reduced creatinine generation due to decreased muscle mass (e.g., malnutritio n, severe hypoalbumin emia, sarcopenia, chronic neuromuscul ar disease, amputations , severe heart failure or liver disease) and in patients with increased creatinine generation due to increased muscle mass (e.g., muscle builders, anabolic steroids) or increased dietary intake. As drug clearance is proportiona l to total GFR and not GFR indexed to body surface area (BSA), in individuals with a BSA substantial ly different than 1.73 m2, drug dosing should be based on the reported eGFR value de-indexed from BSA by multiplying by the individual' s BSA and dividing by 1.73. CKD is diagnosed based on abnormaliti es of kidney structure or function, present for >3 months, with implication s for health and disease. CKD is classified and staged based on cause, eGFR and albuminuria (quantified as urine albumin to creatinine ratio). An eGFR >60 mL/min/1.73 m2 in the absence of increased urine albumin excretion or structural abnormaliti es does not represent CKD. eGFR CKD Interpretat ion (mL/min/1.7 3 m2) stage >=90 G1 Normal 60-89 G2 Mild decrease 45-59 G3A Mild to moderate decrease 30-44 G3B Moderate to severe decrease 15-29 G4 Severe decrease <15 G5 Kidney failure Ordering Provider: LUAN PATEL Report Released Date/Time: Dec 30, 2023 08:19 AM Reporting Lab: JOANNA BISHOP [address] [phone] Performing Lab: JOANNA BISHOP [address] [phone] [facility] PANEL 5 GLUCOSE [MASS/VOLU ME] IN SERUM OR PLASMA 172 mg/dL 74 - 100 12/29 H Specimen Type: PLASMA Comment: Estimated Glomerular Filtration Rate (eGFR) calculated using the 2020 Chronic Kidney Disease-Epi demiology (CKD-EPI) Collaborati on creatinine equation; units of measure are mL/min/1.73 m2. Results are only valid for adults (>=18 years) whose serum creatinine is in a steady state. eGFR calculation s are not valid for patients with acute kidney injury and for patients on dialysis. Creatinine- based estimates of kidney function may also be inaccurate in patients with reduced creatinine generation due to decreased muscle mass (e.g., malnutritio n, severe hypoalbumin emia, sarcopenia, chronic neuromuscul ar disease, amputations , severe heart failure or liver disease) and in patients with increased creatinine generation due to increased muscle mass (e.g., muscle builders, anabolic steroids) or increased dietary intake. As drug clearance is proportiona l to total GFR and not GFR indexed to body surface area (BSA), in individuals with a BSA substantial ly different than 1.73 m2, drug dosing should be based on the reported eGFR value de-indexed from BSA by multiplying by the individual' s BSA and dividing by 1.73. CKD is diagnosed based on abnormaliti es of kidney structure or function, present for >3 months, with implication s for health and disease. CKD is classified and staged based on cause, eGFR and albuminuria (quantified as urine albumin to creatinine ratio). An eGFR >60 mL/min/1.73 m2 in the absence of increased urine albumin excretion or structural abnormaliti es does not represent CKD. eGFR CKD Interpretat ion (mL/min/1.7 3 m2) stage >=90 G1 Normal 60-89 G2 Mild decrease 45-59 G3A Mild to moderate decrease 30-44 G3B Moderate to severe decrease 15-29 G4 Severe decrease <15 G5 Kidney failure Ordering Provider: LUAN PATEL Report Released Date/Time: Dec 30, 2023 08:19 AM Reporting Lab: JOANNA BIHSOP [address] [phone] Performing Lab: JOANNA BISHOP [address] [address] [facility] PANEL 5 SODIUM [MOLES/VOL UME] IN SERUM OR PLASMA 140 mmol/L 136 - 145 12/29 Specimen Type: PLASMA Comment: Estimated Glomerular Filtration Rate (eGFR) calculated using the 2020 Chronic Kidney Disease-Epi demiology (CKD-EPI) Collaborati on creatinine equation; units of measure are mL/min/1.73 m2. Results are only valid for adults (>=18 years) whose serum creatinine is in a steady state. eGFR calculation s are not valid for patients with acute kidney injury and for patients on dialysis. Creatinine- based estimates of kidney function may also be inaccurate in patients with reduced creatinine generation due to decreased muscle mass (e.g., malnutritio n, severe hypoalbumin emia, sarcopenia, chronic neuromuscul ar disease, amputations , severe heart failure or liver disease) and in patients with increased creatinine generation due to increased muscle mass (e.g., muscle builders, anabolic steroids) or increased dietary intake. As drug clearance is proportiona l to total GFR and not GFR indexed to body surface area (BSA), in individuals with a BSA substantial ly different than 1.73 m2, drug dosing should be based on the reported eGFR value de-indexed from BSA by multiplying by the individual' s BSA and dividing by 1.73. CKD is diagnosed based on abnormaliti es of kidney structure or function, present for >3 months, with implication s for health and disease. CKD is classified and staged based on cause, eGFR and albuminuria (quantified as urine albumin to creatinine ratio). An eGFR >60 mL/min/1.73 m2 in the absence of increased urine albumin excretion or structural abnormaliti es does not represent CKD. eGFR CKD Interpretat ion (mL/min/1.7 3 m2) stage >=90 G1 Normal 60-89 G2 Mild decrease 45-59 G3A Mild to moderate decrease 30-44 G3B Moderate to severe decrease 15-29 G4 Severe decrease <15 G5 Kidney failure Ordering Provider: LUAN PATEL Report Released Date/Time: Dec 30, 2023 08:19 AM Reporting Lab: JOANNA BISHOP [address] [phone] Performing Lab: JOANNA BISHOP [address] [phone] [facility] PANEL 5 POTASSIUM [MOLES/VOL UME] IN SERUM OR PLASMA 4.4 mmol/L 3.5 - 5.1 12/29 Specimen Type: PLASMA Comment: Estimated Glomerular Filtration Rate (eGFR) calculated using the 2020 Chronic Kidney Disease-Epi demiology (CKD-EPI) Collaborati on creatinine equation; units of measure are mL/min/1.73 m2. Results are only valid for adults (>=18 years) whose serum creatinine is in a steady state. eGFR calculation s are not valid for patients with acute kidney injury and for patients on dialysis. Creatinine- based estimates of kidney function may also be inaccurate in patients with reduced creatinine generation due to decreased muscle mass (e.g., malnutritio n, severe hypoalbumin emia, sarcopenia, chronic neuromuscul ar disease, amputations , severe heart failure or liver disease) and in patients with increased creatinine generation due to increased muscle mass (e.g., muscle builders, anabolic steroids) or increased dietary intake. As drug clearance is proportiona l to total GFR and not GFR indexed to body surface area (BSA), in individuals with a BSA substantial ly different than 1.73 m2, drug dosing should be based on the reported eGFR value de-indexed from BSA by multiplying by the individual' s BSA and dividing by 1.73. CKD is diagnosed based on abnormaliti es of kidney structure or function, present for >3 months, with implication s for health and disease. CKD is classified and staged based on cause, eGFR and albuminuria (quantified as urine albumin to creatinine ratio). An eGFR >60 mL/min/1.73 m2 in the absence of increased urine albumin excretion or structural abnormaliti es does not represent CKD. eGFR CKD Interpretat ion (mL/min/1.7 3 m2) stage >=90 G1 Normal 60-89 G2 Mild decrease 45-59 G3A Mild to moderate decrease 30-44 G3B Moderate to severe decrease 15-29 G4 Severe decrease <15 G5 Kidney failure Ordering Provider: LUAN PATEL Report Released Date/Time: Dec 30, 2023 08:19 AM Reporting Lab: JOANNA BISHOP [address] [phone] Performing Lab: JOANNA BISHOP [address] [phone] [facility] PANEL 5 CHLORIDE [MOLES/VOL UME] IN SERUM OR PLASMA 106 mmol/L 98 - 107 12/29 Specimen Type: PLASMA Comment: Estimated Glomerular Filtration Rate (eGFR) calculated using the 2020 Chronic Kidney Disease-Epi demiology (CKD-EPI) Collaborati on creatinine equation; units of measure are mL/min/1.73 m2. Results are only valid for adults (>=18 years) whose serum creatinine is in a steady state. eGFR calculation s are not valid for patients with acute kidney injury and for patients on dialysis. Creatinine- based estimates of kidney function may also be inaccurate in patients with reduced creatinine generation due to decreased muscle mass (e.g., malnutritio n, severe hypoalbumin emia, sarcopenia, chronic neuromuscul ar disease, amputations , severe heart failure or liver disease) and in patients with increased creatinine generation due to increased muscle mass (e.g., muscle builders, anabolic steroids) or increased dietary intake. As drug clearance is proportiona l to total GFR and not GFR indexed to body surface area (BSA), in individuals with a BSA substantial ly different than 1.73 m2, drug dosing should be based on the reported eGFR value de-indexed from BSA by multiplying by the individual' s BSA and dividing by 1.73. CKD is diagnosed based on abnormaliti es of kidney structure or function, present for >3 months, with implication s for health and disease. CKD is classified and staged based on cause, eGFR and albuminuria (quantified as urine albumin to creatinine ratio). An eGFR >60 mL/min/1.73 m2 in the absence of increased urine albumin excretion or structural abnormaliti es does not represent CKD. eGFR CKD Interpretat ion (mL/min/1.7 3 m2) stage >=90 G1 Normal 60-89 G2 Mild decrease 45-59 G3A Mild to moderate decrease 30-44 G3B Moderate to severe decrease 15-29 G4 Severe decrease <15 G5 Kidney failure Ordering Provider: LUAN PATEL Report Released Date/Time: Dec 30, 2023 08:19 AM Reporting Lab: JOANNA BISHOP [address] [phone] Performing Lab: JOANNA BISHOP [address] [phone] [facility] PANEL 5 CARBON DIOXIDE, TOTAL [MOLES/VOL UME] IN SERUM OR PLASMA 25 mmol/L 22 - 29 12/29 Specimen Type: PLASMA Comment: Estimated Glomerular Filtration Rate (eGFR) calculated using the 2020 Chronic Kidney Disease-Epi demiology (CKD-EPI) Collaborati on creatinine equation; units of measure are mL/min/1.73 m2. Results are only valid for adults (>=18 years) whose serum creatinine is in a steady state. eGFR calculation s are not valid for patients with acute kidney injury and for patients on dialysis. Creatinine- based estimates of kidney function may also be inaccurate in patients with reduced creatinine generation due to decreased muscle mass (e.g., malnutritio n, severe hypoalbumin emia, sarcopenia, chronic neuromuscul ar disease, amputations , severe heart failure or liver disease) and in patients with increased creatinine generation due to increased muscle mass (e.g., muscle builders, anabolic steroids) or increased dietary intake. As drug clearance is proportiona l to total GFR and not GFR indexed to body surface area (BSA), in individuals with a BSA substantial ly different than 1.73 m2, drug dosing should be based on the reported eGFR value de-indexed from BSA by multiplying by the individual' s BSA and dividing by 1.73. CKD is diagnosed based on abnormaliti es of kidney structure or function, present for >3 months, with implication s for health and disease. CKD is classified and staged based on cause, eGFR and albuminuria (quantified as urine albumin to creatinine ratio). An eGFR >60 mL/min/1.73 m2 in the absence of increased urine albumin excretion or structural abnormaliti es does not represent CKD. eGFR CKD Interpretat ion (mL/min/1.7 3 m2) stage >=90 G1 Normal 60-89 G2 Mild decrease 45-59 G3A Mild to moderate decrease 30-44 G3B Moderate to severe decrease 15-29 G4 Severe decrease <15 G5 Kidney failure Ordering Provider: LUAN PATEL Report Released Date/Time: Dec 30, 2023 08:19 AM Reporting Lab: JOANNA BISHOP [address] [phone] Performing Lab: JOANNA BISHOP [address] [phone] [facility] PANEL 5 CALCIUM [MASS/VOLU ME] IN SERUM OR PLASMA 9.5 mg/dL 8.4 - 10.2 12/29 Specimen Type: PLASMA Comment: Estimated Glomerular Filtration Rate (eGFR) calculated using the 2020 Chronic Kidney Disease-Epi demiology (CKD-EPI) Collaborati on creatinine equation; units of measure are mL/min/1.73 m2. Results are only valid for adults (>=18 years) whose serum creatinine is in a steady state. eGFR calculation s are not valid for patients with acute kidney injury and for patients on dialysis. Creatinine- based estimates of kidney function may also be inaccurate in patients with reduced creatinine generation due to decreased muscle mass (e.g., malnutritio n, severe hypoalbumin emia, sarcopenia, chronic neuromuscul ar disease, amputations , severe heart failure or liver disease) and in patients with increased creatinine generation due to increased muscle mass (e.g., muscle builders, anabolic steroids) or increased dietary intake. As drug clearance is proportiona l to total GFR and not GFR indexed to body surface area (BSA), in individuals with a BSA substantial ly different than 1.73 m2, drug dosing should be based on the reported eGFR value de-indexed from BSA by multiplying by the individual' s BSA and dividing by 1.73. CKD is diagnosed based on abnormaliti es of kidney structure or function, present for >3 months, with implication s for health and disease. CKD is classified and staged based on cause, eGFR and albuminuria (quantified as urine albumin to creatinine ratio). An eGFR >60 mL/min/1.73 m2 in the absence of increased urine albumin excretion or structural abnormaliti es does not represent CKD. eGFR CKD Interpretat ion (mL/min/1.7 3 m2) stage >=90 G1 Normal 60-89 G2 Mild decrease 45-59 G3A Mild to moderate decrease 30-44 G3B Moderate to severe decrease 15-29 G4 Severe decrease <15 G5 Kidney failure Ordering Provider: LUAN PATEL Report Released Date/Time: Dec 30, 2023 08:19 AM Reporting Lab: JOANNA BISHOP [address] [phone] Performing Lab: JOANNA BISHOP [address] [phone] [facility] PANEL 5 PROTEIN [MASS/VOLU ME] IN SERUM OR PLASMA 7.2 g/dL 6.4 - 8.3 12/29 Specimen Type: PLASMA Comment: Estimated Glomerular Filtration Rate (eGFR) calculated using the 2020 Chronic Kidney Disease-Epi demiology (CKD-EPI) Collaborati on creatinine equation; units of measure are mL/min/1.73 m2. Results are only valid for adults (>=18 years) whose serum creatinine is in a steady state. eGFR calculation s are not valid for patients with acute kidney injury and for patients on dialysis. Creatinine- based estimates of kidney function may also be inaccurate in patients with reduced creatinine generation due to decreased muscle mass (e.g., malnutritio n, severe hypoalbumin emia, sarcopenia, chronic neuromuscul ar disease, amputations , severe heart failure or liver disease) and in patients with increased creatinine generation due to increased muscle mass (e.g., muscle builders, anabolic steroids) or increased dietary intake. As drug clearance is proportiona l to total GFR and not GFR indexed to body surface area (BSA), in individuals with a BSA substantial ly different than 1.73 m2, drug dosing should be based on the reported eGFR value de-indexed from BSA by multiplying by the individual' s BSA and dividing by 1.73. CKD is diagnosed based on abnormaliti es of kidney structure or function, present for >3 months, with implication s for health and disease. CKD is classified and staged based on cause, eGFR and albuminuria (quantified as urine albumin to creatinine ratio). An eGFR >60 mL/min/1.73 m2 in the absence of increased urine albumin excretion or structural abnormaliti es does not represent CKD. eGFR CKD Interpretat ion (mL/min/1.7 3 m2) stage >=90 G1 Normal 60-89 G2 Mild decrease 45-59 G3A Mild to moderate decrease 30-44 G3B Moderate to severe decrease 15-29 G4 Severe decrease <15 G5 Kidney failure Ordering Provider: LUAN PATEL Report Released Date/Time: Dec 30, 2023 08:19 AM Reporting Lab: JOANNA BISHOP [address] [phone] Performing Lab: JOANNA BISHOP [address] [phone] [facility] PANEL 5 ALBUMIN [MASS/VOLU ME] IN SERUM OR PLASMA 4.2 g/dL 3.5 - 5.2 12/29 Specimen Type: PLASMA Comment: Estimated Glomerular Filtration Rate (eGFR) calculated using the 2020 Chronic Kidney Disease-Epi demiology (CKD-EPI) Collaborati on creatinine equation; units of measure are mL/min/1.73 m2. Results are only valid for adults (>=18 years) whose serum creatinine is in a steady state. eGFR calculation s are not valid for patients with acute kidney injury and for patients on dialysis. Creatinine- based estimates of kidney function may also be inaccurate in patients with reduced creatinine generation due to decreased muscle mass (e.g., malnutritio n, severe hypoalbumin emia, sarcopenia, chronic neuromuscul ar disease, amputations , severe heart failure or liver disease) and in patients with increased creatinine generation due to increased muscle mass (e.g., muscle builders, anabolic steroids) or increased dietary intake. As drug clearance is proportiona l to total GFR and not GFR indexed to body surface area (BSA), in individuals with a BSA substantial ly different than 1.73 m2, drug dosing should be based on the reported eGFR value de-indexed from BSA by multiplying by the individual' s BSA and dividing by 1.73. CKD is diagnosed based on abnormaliti es of kidney structure or function, present for >3 months, with implication s for health and disease. CKD is classified and staged based on cause, eGFR and albuminuria (quantified as urine albumin to creatinine ratio). An eGFR >60 mL/min/1.73 m2 in the absence of increased urine albumin excretion or structural abnormaliti es does not represent CKD. eGFR CKD Interpretat ion (mL/min/1.7 3 m2) stage >=90 G1 Normal 60-89 G2 Mild decrease 45-59 G3A Mild to moderate decrease 30-44 G3B Moderate to severe decrease 15-29 G4 Severe decrease <15 G5 Kidney failure Ordering Provider: LUAN PATEL Report Released Date/Time: Dec 30, 2023 08:19 AM Reporting Lab: [address] [phone] Performing Lab: [address] [address] [facility] PANEL 5 BILIRUBIN. TOTAL [MASS/VOLU ME] IN SERUM OR PLASMA 0.5 mg/dL 0.2 - 1.2 12/29 Specimen Type: PLASMA Comment: Estimated Glomerular Filtration Rate (eGFR) calculated using the 2020 Chronic Kidney Disease-Epi demiology (CKD-EPI) Collaborati on creatinine equation; units of measure are mL/min/1.73 m2. Results are only valid for adults (>=18 years) whose serum creatinine is in a steady state. eGFR calculation s are not valid for patients with acute kidney injury and for patients on dialysis. Creatinine- based estimates of kidney function may also be inaccurate in patients with reduced creatinine generation due to decreased muscle mass (e.g., malnutritio n, severe hypoalbumin emia, sarcopenia, chronic neuromuscul ar disease, amputations , severe heart failure or liver disease) and in patients with increased creatinine generation due to increased muscle mass (e.g., muscle builders, anabolic steroids) or increased dietary intake. As drug clearance is proportiona l to total GFR and not GFR indexed to body surface area (BSA), in individuals with a BSA substantial ly different than 1.73 m2, drug dosing should be based on the reported eGFR value de-indexed from BSA by multiplying by the individual' s BSA and dividing by 1.73. CKD is diagnosed based on abnormaliti es of kidney structure or function, present for >3 months, with implication s for health and disease. CKD is classified and staged based on cause, eGFR and albuminuria (quantified as urine albumin to creatinine ratio). An eGFR >60 mL/min/1.73 m2 in the absence of increased urine albumin excretion or structural abnormaliti es does not represent CKD. eGFR CKD Interpretat ion (mL/min/1.7 3 m2) stage >=90 G1 Normal 60-89 G2 Mild decrease 45-59 G3A Mild to moderate decrease 30-44 G3B Moderate to severe decrease 15-29 G4 Severe decrease <15 G5 Kidney failure Ordering Provider: LUAN PATEL Report Released Date/Time: Dec 30, 2023 08:19 AM Reporting Lab: ELIS[facility] [address] [facility] [phone] Performing Lab: [address] [phone] [facility] PANEL 5 ASPARTATE AMINOTRANS FERASE [ENZYMATIC ACTIVITY/V OLUME] IN SERUM OR PLASMA 18 U/L 5 - 34 12/29 Specimen Type: PLASMA Comment: Estimated Glomerular Filtration Rate (eGFR) calculated using the 2020 Chronic Kidney Disease-Epi demiology (CKD-EPI) Collaborati on creatinine equation; units of measure are mL/min/1.73 m2. Results are only valid for adults (>=18 years) whose serum creatinine is in a steady state. eGFR calculation s are not valid for patients with acute kidney injury and for patients on dialysis. Creatinine- based estimates of kidney function may also be inaccurate in patients with reduced creatinine generation due to decreased muscle mass (e.g., malnutritio n, severe hypoalbumin emia, sarcopenia, chronic neuromuscul ar disease, amputations , severe heart failure or liver disease) and in patients with increased creatinine generation due to increased muscle mass (e.g., muscle builders, anabolic steroids) or increased dietary intake. As drug clearance is proportiona l to total GFR and not GFR indexed to body surface area (BSA), in individuals with a BSA substantial ly different than 1.73 m2, drug dosing should be based on the reported eGFR value de-indexed from BSA by multiplying by the individual' s BSA and dividing by 1.73. CKD is diagnosed based on abnormaliti es of kidney structure or function, present for >3 months, with implication s for health and disease. CKD is classified and staged based on cause, eGFR and albuminuria (quantified as urine albumin to creatinine ratio). An eGFR >60 mL/min/1.73 m2 in the absence of increased urine albumin excretion or structural abnormaliti es does not represent CKD. eGFR CKD Interpretat ion (mL/min/1.7 3 m2) stage >=90 G1 Normal 60-89 G2 Mild decrease 45-59 G3A Mild to moderate decrease 30-44 G3B Moderate to severe decrease 15-29 G4 Severe decrease <15 G5 Kidney failure Ordering Provider: LUAN PATEL Report Released Date/Time: Dec 30, 2023 08:19 AM Reporting Lab: JOANNA BISHOP [address] [phone] Performing Lab: JOANNA BISHOP [address] [phone] [facility] PANEL 5 ALANINE AMINOTRANS FERASE [ENZYMATIC ACTIVITY/V OLUME] IN SERUM OR PLASMA 31 U/L 0 - 55 12/29 Specimen Type: PLASMA Comment: Estimated Glomerular Filtration Rate (eGFR) calculated using the 2020 Chronic Kidney Disease-Epi demiology (CKD-EPI) Collaborati on creatinine equation; units of measure are mL/min/1.73 m2. Results are only valid for adults (>=18 years) whose serum creatinine is in a steady state. eGFR calculation s are not valid for patients with acute kidney injury and for patients on dialysis. Creatinine- based estimates of kidney function may also be inaccurate in patients with reduced creatinine generation due to decreased muscle mass (e.g., malnutritio n, severe hypoalbumin emia, sarcopenia, chronic neuromuscul ar disease, amputations , severe heart failure or liver disease) and in patients with increased creatinine generation due to increased muscle mass (e.g., muscle builders, anabolic steroids) or increased dietary intake. As drug clearance is proportiona l to total GFR and not GFR indexed to body surface area (BSA), in individuals with a BSA substantial ly different than 1.73 m2, drug dosing should be based on the reported eGFR value de-indexed from BSA by multiplying by the individual' s BSA and dividing by 1.73. CKD is diagnosed based on abnormaliti es of kidney structure or function, present for >3 months, with implication s for health and disease. CKD is classified and staged based on cause, eGFR and albuminuria (quantified as urine albumin to creatinine ratio). An eGFR >60 mL/min/1.73 m2 in the absence of increased urine albumin excretion or structural abnormaliti es does not represent CKD. eGFR CKD Interpretat ion (mL/min/1.7 3 m2) stage >=90 G1 Normal 60-89 G2 Mild decrease 45-59 G3A Mild to moderate decrease 30-44 G3B Moderate to severe decrease 15-29 G4 Severe decrease <15 G5 Kidney failure Ordering Provider: LUAN PATEL Report Released Date/Time: Dec 30, 2023 08:19 AM Reporting Lab: [facility] [address] [address] Performing Lab: [facility] [address] [address] [facility] PANEL 5 ANION GAP 3 IN SERUM OR PLASMA 9 meq/L 3 - 19 12/29 Specimen Type: PLASMA Comment: Estimated Glomerular Filtration Rate (eGFR) calculated using the 2020 Chronic Kidney Disease-Epi demiology (CKD-EPI) Collaborati on creatinine equation; units of measure are mL/min/1.73 m2. Results are only valid for adults (>=18 years) whose serum creatinine is in a steady state. eGFR calculation s are not valid for patients with acute kidney injury and for patients on dialysis. Creatinine- based estimates of kidney function may also be inaccurate in patients with reduced creatinine generation due to decreased muscle mass (e.g., malnutritio n, severe hypoalbumin emia, sarcopenia, chronic neuromuscul ar disease, amputations , severe heart failure or liver disease) and in patients with increased creatinine generation due to increased muscle mass (e.g., muscle builders, anabolic steroids) or increased dietary intake. As drug clearance is proportiona l to total GFR and not GFR indexed to body surface area (BSA), in individuals with a BSA substantial ly different than 1.73 m2, drug dosing should be based on the reported eGFR value de-indexed from BSA by multiplying by the individual' s BSA and dividing by 1.73. CKD is diagnosed based on abnormaliti es of kidney structure or function, present for >3 months, with implication s for health and disease. CKD is classified and staged based on cause, eGFR and albuminuria (quantified as urine albumin to creatinine ratio). An eGFR >60 mL/min/1.73 m2 in the absence of increased urine albumin excretion or structural abnormaliti es does not represent CKD. eGFR CKD Interpretat ion (mL/min/1.7 3 m2) stage >=90 G1 Normal 60-89 G2 Mild decrease 45-59 G3A Mild to moderate decrease 30-44 G3B Moderate to severe decrease 15-29 G4 Severe decrease <15 G5 Kidney failure Ordering Provider: LUAN PATEL Report Released Date/Time: Dec 30, 2023 08:19 AM Reporting Lab: [facility] [address] [address] Performing Lab: [facility] [address] [address] [facility] PANEL 5 ALKALINE PHOSPHATAS E [ENZYMATIC ACTIVITY/V OLUME] IN SERUM OR PLASMA 94 U/L 40 - 150 12/29 Specimen Type: PLASMA Comment: Estimated Glomerular Filtration Rate (eGFR) calculated using the 2020 Chronic Kidney Disease-Epi demiology (CKD-EPI) Collaborati on creatinine equation; units of measure are mL/min/1.73 m2. Results are only valid for adults (>=18 years) whose serum creatinine is in a steady state. eGFR calculation s are not valid for patients with acute kidney injury and for patients on dialysis. Creatinine- based estimates of kidney function may also be inaccurate in patients with reduced creatinine generation due to decreased muscle mass (e.g., malnutritio n, severe hypoalbumin emia, sarcopenia, chronic neuromuscul ar disease, amputations , severe heart failure or liver disease) and in patients with increased creatinine generation due to increased muscle mass (e.g., muscle builders, anabolic steroids) or increased dietary intake. As drug clearance is proportiona l to total GFR and not GFR indexed to body surface area (BSA), in individuals with a BSA substantial ly different than 1.73 m2, drug dosing should be based on the reported eGFR value de-indexed from BSA by multiplying by the individual' s BSA and dividing by 1.73. CKD is diagnosed based on abnormaliti es of kidney structure or function, present for >3 months, with implication s for health and disease. CKD is classified and staged based on cause, eGFR and albuminuria (quantified as urine albumin to creatinine ratio). An eGFR >60 mL/min/1.73 m2 in the absence of increased urine albumin excretion or structural abnormaliti es does not represent CKD. eGFR CKD Interpretat ion (mL/min/1.7 3 m2) stage >=90 G1 Normal 60-89 G2 Mild decrease 45-59 G3A Mild to moderate decrease 30-44 G3B Moderate to severe decrease 15-29 G4 Severe decrease <15 G5 Kidney failure Ordering Provider: LUAN PATEL Report Released Date/Time: Dec 30, 2023 08:19 AM Reporting Lab: [facility] [address] [address] Performing Lab: JO[facility]NA BISHOP [address] [address] [facility] 5 GLOMERULAR FILTRATION RATE/1.73 SQ M.PREDICTE D [VOLUME RATE/AREA] IN SERUM, PLASMA OR BLOOD BY CREATININE -BASED FORMULA (CKD-EPI 2020) 59 12/29 Specimen Type: PLASMA Comment: Estimated Glomerular Filtration Rate (eGFR) calculated using the 2020 Chronic Kidney Disease-Epi demiology (CKD-EPI) Collaborati on creatinine equation; units of measure are mL/min/1.73 m2. Results are only valid for adults (>=18 years) whose serum creatinine is in a steady state. eGFR calculation s are not valid for patients with acute kidney injury and for patients on dialysis. Creatinine- based estimates of kidney function may also be inaccurate in patients with reduced creatinine generation due to decreased muscle mass (e.g., malnutritio n, severe hypoalbumin emia, sarcopenia, chronic neuromuscul ar disease, amputations , severe heart failure or liver disease) and in patients with increased creatinine generation due to increased muscle mass (e.g., muscle builders, anabolic steroids) or increased dietary intake. As drug clearance is proportiona l to total GFR and not GFR indexed to body surface area (BSA), in individuals with a BSA substantial ly different than 1.73 m2, drug dosing should be based on the reported eGFR value de-indexed from BSA by multiplying by the individual' s BSA and dividing by 1.73. CKD is diagnosed based on abnormaliti es of kidney structure or function, present for >3 months, with implication s for health and disease. CKD is classified and staged based on cause, eGFR and albuminuria (quantified as urine albumin to creatinine ratio). An eGFR >60 mL/min/1.73 m2 in the absence of increased urine albumin excretion or structural abnormaliti es does not represent CKD. eGFR CKD Interpretat ion (mL/min/1.7 3 m2) stage >=90 G1 Normal 60-89 G2 Mild decrease 45-59 G3A Mild to moderate decrease 30-44 G3B Moderate to severe decrease 15-29 G4 Severe decrease <15 G5 Kidney failure Ordering Provider: LUAN PATEL Report Released Date/Time: Dec 30, 2023 08:19 AM Reporting Lab: [facility] [address] [address] Performing Lab: JO[facility]NA BISHOP [address] [address] [facility] OCCULT BLOOD FIT X1 SCREEN HEMOGLOBIN .GASTROINT ESTINAL.LO WER [PRESENCE] IN STOOL BY IMMUNOASSA Y Negative 01/22 Specimen Type: FECES Comment: No Date or time of collection provided. Lab cannot attest to the validity of results with undated specimens or specimens over 14 days old. Suggest recollect. Ordering Provider: LUAN PATEL Report Released Date/Time: Jan 10, 2023 08:24 AM Reporting Lab: [facility] BISHOP [facility] [address] [phone] Performing Lab: JOANNA BISHOP [facility] [address] [address] [facility] B12 VITAMIN COBALAMIN (VITAMIN B12) [MASS/VOLU ME] IN SERUM OR PLASMA 536 pg/mL 213 - 816 01/10 Specimen Type: PLASMA Comment: Estimated Glomerular Filtration Rate (eGFR) calculated using the 2020 Chronic Kidney Disease-Epi demiology (CKD-EPI) Collaborati on creatinine equation; units of measure are mL/min/1.73 m2. Results are only valid for adults (>=18 years) whose serum creatinine is in a steady state. eGFR calculation s are not valid for patients with acute kidney injury and for patients on dialysis. Creatinine- based estimates of kidney function may also be inaccurate in patients with reduced creatinine generation due to decreased muscle mass (e.g., malnutritio n, severe hypoalbumin emia, sarcopenia, chronic neuromuscul ar disease, amputations , severe heart failure or liver disease) and in patients with increased creatinine generation due to increased muscle mass (e.g., muscle builders, anabolic steroids) or increased dietary intake. As drug clearance is proportiona l to total GFR and not GFR indexed to body surface area (BSA), in individuals with a BSA substantial ly different than 1.73 m2, drug dosing should be based on the reported eGFR value de-indexed from BSA by multiplying by the individual' s BSA and dividing by 1.73. CKD is diagnosed based on abnormaliti es of kidney structure or function, present for >3 months, with implication s for health and disease. CKD is classified and staged based on cause, eGFR and albuminuria (quantified as urine albumin to creatinine ratio). An eGFR >60 mL/min/1.73 m2 in the absence of increased urine albumin excretion or structural abnormaliti es does not represent CKD. eGFR CKD Interpretat ion (mL/min/1.7 3 m2) stage >=90 G1 Normal 60-89 G2 Mild decrease 45-59 G3A Mild to moderate decrease 30-44 G3B Moderate to severe decrease 15-29 G4 Severe decrease <15 G5 Kidney failure Vitamin B12 test may not yield results when protein level of sample is too elevated. Ordering Provider: LUAN PATEL Report Released Date/Time: Jan 10, 2023 08:24 AM Reporting Lab: JOANNA [address] [address] Performing Lab: [facility] [address] [facility] TSH THYROTROPI N [UNITS/VOL UME] IN SERUM OR PLASMA 2.8454 m[IU]/mL 0.3500 - 4.9400 01/10 Specimen Type: PLASMA Comment: Estimated Glomerular Filtration Rate (eGFR) calculated using the 2020 Chronic Kidney Disease-Epi demiology (CKD-EPI) Collaborati on creatinine equation; units of measure are mL/min/1.73 m2. Results are only valid for adults (>=18 years) whose serum creatinine is in a steady state. eGFR calculation s are not valid for patients with acute kidney injury and for patients on dialysis. Creatinine- based estimates of kidney function may also be inaccurate in patients with reduced creatinine generation due to decreased muscle mass (e.g., malnutritio n, severe hypoalbumin emia, sarcopenia, chronic neuromuscul ar disease, amputations , severe heart failure or liver disease) and in patients with increased creatinine generation due to increased muscle mass (e.g., muscle builders, anabolic steroids) or increased dietary intake. As drug clearance is proportiona l to total GFR and not GFR indexed to body surface area (BSA), in individuals with a BSA substantial ly different than 1.73 m2, drug dosing should be based on the reported eGFR value de-indexed from BSA by multiplying by the individual' s BSA and dividing by 1.73. CKD is diagnosed based on abnormaliti es of kidney structure or function, present for >3 months, with implication s for health and disease. CKD is classified and staged based on cause, eGFR and albuminuria (quantified as urine albumin to creatinine ratio). An eGFR >60 mL/min/1.73 m2 in the absence of increased urine albumin excretion or structural abnormaliti es does not represent CKD. eGFR CKD Interpretat ion (mL/min/1.7 3 m2) stage >=90 G1 Normal 60-89 G2 Mild decrease 45-59 G3A Mild to moderate decrease 30-44 G3B Moderate to severe decrease 15-29 G4 Severe decrease <15 G5 Kidney failure Vitamin B12 test may not yield results when protein level of sample is too elevated. Ordering Provider: LUAN PATEL Report Released Date/Time: Jan 10, 2023 08:24 AM Reporting Lab: [facility] [address] [address] Performing Lab: ELISStacey [facility] [address] [address] [facility] Vital Signs Combined list of inpatient and outpatient Vital Signs from Department of [facility] and [facility], ranging from 12 months to all on record, depending upon the facility. Vital Sign Value Date Comments Source SYSTOLIC BLOOD PRESSURE 155 12/30/2023 07:54:59 [facility] DIASTOLIC BLOOD PRESSURE 86 12/30/2023 07:54:59 [facility] PULSE OXIMETRY 95 12/30/2023 07:54:59 L [facility] [place] WEIGHT 296.4 12/30/2023 07:54:59 [place] [facility] BMI 38 kg/m2 12/30/2023 07:54:59 [place] [facility] PAIN 0 12/30/2023 07:54:59 [place] [facility] HEIGHT 74 12/30/2023 07:54:59 [place] [facility] TEMPERATURE 97.4 12/30/2023 07:54:59 [facility] PULSE 77 12/30/2023 07:54:59 [place] [facility] RESPIRATION 18 12/30/2023 07:54:59 [facility] Encounters Combined list of: 1) Encounters from Department of Veterans Affairs facilities going backup to the last 18 months, not all VA inpatient encounters are included; 2) Encounters from the Department of Defense facilities going backup to 280 months. Location Location Details Encounter Type Encounter Number Reason For Visit Attending Provider ADM Date DC Date Status Disposition Source [facility] Outpatient Encounter [id number] 01/10 [place] [facility] OFFICE O/P EST MOD 30-39 MIN [id number] Diagnos is: ICD-10- CM E11.65 Type 2 diabete s mellitu s with hypergl ycemia AMANDA,KI PTON L 01/10 [facility] Outpatient Encounter [id number] 02/22 [place] [facility] OFFICE O/P EST MOD 30 MIN [id number] Diagnos is: ICD-10- CM E11.65 Type 2 diabete s mellitu s with hypergl ycemia DEMETRIA PATEL PTON L 12/29 [facility] Outpatient Encounter [id number] 12/29 [place] [facility] IMG RTA DETCJ/MNTR DS STAFF [id number] Diagnos is: ICD-10- CM Z13.5 Encount er for screeni ng for eye and ear disorde SOPHIA Byers 12/29 [facility] UNLISTED OPH SVC/PROCED URE [id number] Diagnos is: ICD-10- CM Z13.9 Encount er for screeni ng, unspeci GABBY Draper 12/29 [facility] Outpatient Encounter [id number] 12/29 [place] [facility] Outpatient Encounter [id number] 01[facility]11 [place] [facility] En[facility] [id number] 01/16 [place] HC PRO PHONE CALL 5-10 MIN [id number] Diagnos is: ICD-10- CM Z71.9 [employer] ing, charlenei ANTHONY Schulz F 01[facility] COMPRE OPH EXAM NEW PT 1/> [id number] Diagnos is: ICD-10- CM E11.339 1 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, r eye TKGARRETT,RONALDO LLIP K 03/29 [place] [facility] Social History Combined list of available smoking, tobacco, and other social history from Department of Defense and Veterans Affairs facilities. Social History Type Response Date Comment Sourc e Tobacco smoking status NHIS HI-TOBACCO FORMER USER 12/30/2023 [facility] History of tobacco use HI-TOBACCO QUIT 1 5 YRS OR MORE 12/30/2023 [facility] History of tobacco use HI-TOBACCO FORMER USER 01/10/2023 [facility] History of tobacco use HI-TOBACCO QUIT 1 5 YRS OR MORE 01/18/2022 [facility] History of tobacco use HI-TOBACCO FORMER USER 01/28/2021 [facility] History of tobacco use HI-TOBACCO FORMER USER 02/11/2020 [facility] History of tobacco use HI-TOBACCO QUIT 1 5 YRS OR MORE 03/01/2019 [facility] History of tobacco use VA-TOBACCO FORMER USER 03/03/2018 [facility] History of tobacco use V9 QUIT TOBACCO > 7 YEARS AGO 09/03/2016 [facility] History of tobacco use V9 QUIT TOBACCO > 7 YEARS AGO 03/21/2014 [facility] History of tobacco use V9 QUIT TOBACCO > 12 MO and <7 YRS AGO 05/30/2013 [facility] History of tobacco use V9 QUIT TOBACCO > 12 MO and <7 YRS AGO 08/02/2012 [facility] History of tobacco use V9 QUIT TOBACCO > 12 MO and <7 YRS AGO 04/14/2011 [facility] History of tobacco use V9 QUIT TOBACCO I N THE LAST 12 MONTHS 06/23/2010 [facility] History of tobacco use V9 CURRENT TOBACCO USER 07/24/2009 [facility] History of tobacco use V9 CURRENT TOBACCO USER 01/21/2009 [facility] History of tobacco use V9 CURRENT TOBACCO USER 07/19/2008 [facility]
[2024-06-20 14:53] LABS: Basophils # 0.1 K/mm3 (0-0.2); Basophils % 1.1 % (0.1-2.0); Eosinophils # 0.9 K/mm3 (0.0-0.4); Eosinophils % 7.2 % (0.1-12.0); Hematocrit 43.3 % (42.0-52.0); Hemoglobin 13.8 g/dL (14.1-18.0); Lymphocytes # 2.7 K/mm3 (0.7-4.5); Mean Corpuscular HGB Conc 31.9 g/dL (31.8-35.4); Mean Corpuscular Hemoglobin 28.4 pg (27.0-31.2); Mean Corpuscular Volume 89.1 fl (80-94); Mean Platelet Volume 11.1 fl (7.4-10.4); Monocytes # 0.8 K/mm3 (0.1-1.0); Monocytes % 6.7 % (1.7-9.3); Neutrophils # 7.3 K/mm3 (1.8-7.8); Neutrophils % 61.7 % (37.0-80.0); Nucleated Red Blood Cells # 0 10^3/uL; Nucleated Red Blood Cells % 0 %; Platelet Count 231 K/mm3 (142-424); Red Blood Count 4.86 M/mm3 (4.60-6.20); Red Cell Distribution Width 13.4 % (11.5-17.5); Red Cell Distribution Width-SD 43.5 fL; White Blood Count 11.9 K/mm3 (4.8-10.8)
[2024-06-20 16:28] LABS: Microalbumin/Creatinine Ratio 29.2
[2024-06-20 16:47] LABS: Creatinine,Urine Random 188 mg/dL (Not Estab.)
[2024-06-20 16:54] LABS: Alanine Aminotransferase 32 U/L (12-78); Albumin Level 3.9 g/dl (3.5-5.0); Albumin/Globulin Ratio 1.3 (1.1-1.8); Alkaline Phosphatase 84 U/L (38-126); Anion Gap 16.4 mEq/L (5-15); Aspartate Amino Transferase 26 U/L (17-59); Bilirubin,Total 0.5 mg/dl (0.2-1.3); Blood Urea Nitrogen 27 mg/dl (9-20); Carbon Dioxide 26 mmol/L (22.0-30.0); Chloride 102 mmol/L (98-107); Cholesterol 124 mg/dl (140-200); Estimated Glomerular Filt Rate 59 ml/min (>60); GFR (African American) 71 ML/MIN (>60); Glucose 106 mg/dl (74-100); HDL Cholesterol 25 mg/dl (40-60); Potassium 4.4 mmoL/L (3.5-5.1); Sodium 140 mmol/L (136-145); Total Protein,Serum 6.9 g/dl (6.3-8.2); Triglycerides 189 mg/dl (30-150); VLDL Cholesterol 38 mg/dL (0-40)
[2024-06-20 17:04] LABS: Direct LDL Cholesterol 60.53 mg/dL (100-129)
[2024-06-20 17:23] LABS: Prostate Specific Ag Screen 0.8 ng/ml (0.0-4.0)
[2024-06-20 18:19] LABS: Hemoglobin A1C 8.6 % (4.0-6.0)
== END 2024-06-20 23:59 | disposition home or self-care (01) ==
LOC: LAB.DROPOF 14:47
PROVIDERS: PCP Internal Medicine; Visit Provider Internal Medicine
DX: E11.42 Type 2 diabetes mellitus with diabetic polyneuropathy (principal); I10 Essential (primary) hypertension; E78.5 Hyperlipidemia, unspecified; Z12.5 Encounter for screening for malignant neoplasm of prostate
CPT/HCPCS: 80053; 80061; 82043; 82570; 83036; 85025; G0103

== ENCOUNTER 2024-10-18 10:15 | Observation (INO) | payer MEDICARE, OTHER, SELFPAY ==
--- OUTSIDE RECORDS SUMMARY | 2019-01-19 10:20 | XMS_ITS | Encounter Summary ---
Author Organization [facility] [place] [address] Care Team Providers Care Occupational Health Nurse Supervisor Name Role Phone Ariel Villaseñor MD Primary Care Provider Encounter Details Date Type Department Care Team (Latest Contact Info) Description 01/19/2019 9:20 AM EST Hospital Encounter [facility] Referral Lab [address] [phone] Brian Mcmanus MD [address] [place] [address] Presence of right artificial knee [...] 01/19/2019 10:30 AM EST [facility] Blood Venipuncture / Unknown 01/19/2019 9:49 AM EST 01/19/2019 9:49 AM EST us Brian Mcmanus MD HEMATOLOGY ORDERABLES Final Result [facility], [employer] [address] [facility] , [place] [address] * (ABNORMAL) CBC WITH DIFF [...] 10:11 AM EST [facility] Percent 6.5 % 01/19/2019 10:11 AM EST [facility] Eos Percent 8.6 % 01/19/2019 10:11 AM EST [facility] Baso Percent 1.5 % 01/19/2019 10:11 AM EST [facility] Neut # 6.1 1.6 - 6.1 x10(3)/[facility] 01/19/2019 10:11 AM EST [facility] [employer] Comment:Neutrophils equals s egs plus bands IMMGRAN# 0.1 0.0 - 0.1 x10(3)/[facility] 01/19/2019 10:11 AM EST [facility] [employer], [facility] Comment:Automated count of m etamyelocytes, myelocytes and promyelocytes. An absolute IG <0.1 is reported as 0.0. Lymph # 2.2 1.2 - 3.9 x10(3)/[facility] 01/19/2019 10:11 AM EST [facility] # 0.7 0.3 - 0.9 x10(3)/[facility] 01/19/2019 10:11 AM EST [facility], [facility] Eos# 0.9(H) 0.0 - 0.5 x10(3)/[facility] 01/19/2019 10:11 AM EST [facility] Baso # 0.2(H) 0.0 - 0.1 x10(3)/[facility] 01/19/2019 10:11 AM EST [facility] [employer], [facility] Blood Venipuncture / Unknown 01/19/2019 9:49 AM EST 01/19/2019 9:49 AM EST us Brian Mcmanus MD HEMATOLOGY ORDERABLES Final Result [facility] [employer], [facility] 1 [facility] , [place] [address] * C-REACTIVE PROTEIN (01/19/2019 9:49 AM EST) CRP 3.41 <=5.00 mg/L 01/19/2019 10:32 AM EST [facility] [employer], [facility] Blood Venipuncture / Unknown 01/19/2019 9:49 AM EST 01/19/2019 9:49 AM EST us Brian Mcmanus MD CHEMISTRY ORDERABLES Final R esult [facility] 1 [facility] , [address] [place] [phone] documented in this encounter Visit Diagnoses Diagnosis Presence of right artificial knee joint Knee joint replacement by other means documented in this encounter Care Teams Occupational Health Nurse Supervisor Relationship Specialty Start Date End Date Ariel Villasñeor MD [address] [place] [address] PCP - General Internal Medicine 05/16/15 documented as of this encounter
--- OUTSIDE RECORDS SUMMARY | 2023-12-30 04:00 | XMS_ITS | Encounter Summary ---
Author Name [facility] [place] Organization [facility] [place] Address [address] [place] [address] Care Team Providers Care Laser/Electro Optics Technician Name Role Phone ESTHER PATEL Primary Care Provider Unavailabl e Insurance Providers: All historical and current Section Date Range: From patient's date of to the date document was created. This section includes the names of all active insurance providers for the patient. Insurance Provider Type of Coverage Plan Name Start of Policy Coverage End of Policy Coverage Group Number Member ID Insurance Provider's Telephone Number Policy Chakraborty's Name Patient's Relationship to Policy Chakraborty MEDICARE (WNR) MEDICARE (M) PART A Mar 07, 2010 PART A [id number] [id number] [place] LT PATIENT MEDICARE (WNR) MEDICARE (M) PART A Mar 07, 2010 PART A [id number] [place] PATIENT Selected Encounter This section includes the information on record at [place] for the Encounter. Date/Time Encounter Type Encounter Description Reason Provider Source Dec 30, 2023 08:00 AM OFFICE O/P EST MOD 30 MIN PRIMARY CARE/MEDICINE ICD-10-CM E11.65 Type 2 diabetes mellitus with hyperglycemia MIKKI PATEL Michael Encounter Template Text not used by [place] Assessments - Encounter Diagnoses This section includes the primary and secondary diagnoses documented for the Encounter. 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 This section includes future appointments and future orders which are active, pending or scheduled. Future Appointments This section includes appointments that were scheduled to occur 6 months from the date of the Encounter, up to a maximum of 20 appointments. The data comes from all [facility]. Appointment Date/Time Appointment Type Appointme nt Facility Name Jan 18, 2024 09:30 AM AMBULATORY - MEDICINE [facility] Mar 29, 2024 08:00 AM AMBULATORY - MEDICINE [facility] Apr 09, 2024 08:00 AM AMBULATORY - MEDICINE [facility] Active, Pending, and Scheduled Orders This section includes a listing of several types of active, pending, and scheduled orders, including clinic medications orders, diagnostic test orders, procedure orders and consult orders; where the start date of the order is 45 days before the date of the Encounter or 45 days after the date of theEncounter. The data comes from all [facility]. Test Date/Time Test Type Test Details Facility Name Dec 30, 2023 08:24 AM Laboratory - Chemi stry Order AUTOMATED DIFF [id number] BLOOD SP ONCE [facility] Lab Results: +/- 30 days of the encounter This section includes the Chemistry and Hematology Lab Results on record with [place] for the patient. Radiology Reports and Pathology Reports are provided separately, in subsequent sections. Lab Results This section contains the Chemistry/Hematology Results that were resulted 30 days before or 30 daysafter the date of the Encounter. Date/Time Source Result Type Result - Unit Interpretation Reference Range Specimen Type Comment Dec 30, 2023 08:24 AM [facility] GLYCOHEMOGLOBIN BLOOD Specimen Type: BLOOD Comment: [place] guidelines for A1c interpretation: Glycemic control targets are based on Shared Decision Making between clinicians and patients. Criteria used to establish an A1c target recommendation can be found at https://www.de. ov/qualityandpat ientsafety/ and include the use of result accuracy and precision(CV) of the A1c tests clinicians utilize at their own sites of practice. Values obtained from A1C measurements can vary. For typical A1C assays, a reported value of 7.0 could actually be between 6.72 and 7.28 if measured by a reference method. A reported value of 9.0 could actually be between 8.73 and 9.27. Ref: https://ngsp.org /CAPdata.asp. The in-house Mfuse D-100 analyzer has a historical CV <= 2%. Contact the laboratory for further performance characteristics of this assay. Ordering Provider: ESTHER PATEL Report Released Date/Time: Dec 30, 2023 08:19 AM Reporting Lab: [place] [id number] Performing Lab: [place] [id number] GLYCOHEMOGLOBIN 9.1 H 4.4-6.4 Dec 30, 2023 08:24 AM [facility] MICROALBUMIN/CREAT RATIO URINE Specimen Type: URINE No comment entered. Ordering Provider: ESTHER PATEL Report Released Date/Time: Dec 30, 2023 08:19 AM Reporting Lab: [place] [id number] Performing Lab: [place] [id number] CREATININE 79.2 mg/dL MICROALBUMIN QUANT 174.5 mg/L H 0.0-30.0 .MICROALBUMIN/CREA RATIO 220.3 ug/mg{creat} Dec 30, 2023 08:24 AM [facility] CBC/PLT BLOOD Specimen Type: BLOOD No comment entered. Ordering Provider: ESTHER PATEL Report Released Date/Time: Dec 30, 2023 08:19 AM Reporting Lab: [place] [id number] Performing Lab: [facility] [address] [facility] [id number] WBC 11.0 10*3/uL H 5.0-10.0 RBC 5.12 10*6/uL 4.6-6.2 HGB 14.4 g/dL 14.0-18.0 HCT 45.0 42.0-52.0 MCV 87.9 fL 80.0-94.0 MCH 28.1 pg 27.0-31.0 MCHC 32.0 g/dL 32.0-36.0 PLT 221 10*3/uL 150-450 MPV 11.1 fL 9.0-13.1 RDW 12.7 11.0-16.0 NRBC 0.0 0.0-0.0 Dec 30, 2023 08:24 AM [facility] LIPID PROFILE PLASMA Specimen Type: PLASM A Comment: Estimated Glomerular Filtration Rate (eGFR) calculated using the 2020 Chronic Kidney Disease-Epidemiology (CKD-EPI) Collaboration creatinine equation; units of measure are mL/min/1.73 m2. Results are only valid for adults (>=18 years) whose serum creatinine is in a steady state. eGFR calculations are not valid for patients with acute kidney injury and for patients on dialysis. Creatinine-based estimates of kidney function may also be inaccurate in patients with reduced creatinine generation due to decreased muscle mass (e.g., malnutrition, severe hypoalbuminemia, sarcopenia, chronic neuromuscular disease, amputations, severe heart failure or liver disease) and in patients with increased creatinine generation due to increased muscle mass (e.g., muscle builders, anabolic steroids) or increased dietary intake. As drug clearance is proportional to total GFR and not GFR indexed to body surface area (BSA), in individuals with a BSA substantially different than 1.73 m2, drug dosing should be based on the reported eGFR value de-indexed from BSA by multiplying by the individual's BSA and dividing by 1.73. CKD is diagnosed based on abnormalities of kidney structure or function, present for >3 months, with implications for health and disease. CKD is classified and staged based on cause, eGFR and albuminuria (quantified as urine albumin to creatinine ratio). An eGFR >60 mL/min/1.73 m2 in the absence of increased urine albumin excretion or structural abnormalities does not represent CKD. eGFR CKD Interpretation (mL/min/1.73 m2) stage >=90 G1 Normal 60-89 G2 Mild decrease 45-59 G3A Mild to moderate decrease 30-44 G3B Moderate to severe decrease 15-29 G4 Severe decrease <15 G5 Kidney failure Ordering Provider: ESTHER PATEL Report Released Date/Time: Dec 30, 2023 08:19 AM Reporting Lab: [address] [phone] Performing Lab: [address] [phone] CHOLESTEROL 125 mg/dL 0-199 TRIGLYCERIDE 151 mg/dL H 0-149 HDL CHOLESTEROL 28 mg/dL L 40-69 DIRECT LDL CHOL. 81 mg/dL 0-100 Dec 30, 2023 08:24 [facility] Specimen Type: PLASM A Comment: Estimated Glomerular Filtration Rate (eGFR) calculated using the 2020 Chronic Kidney Disease-Epidemiology (CKD-EPI) Collaboration creatinine equation; units of measure are mL/min/1.73 m2. Results are only valid for adults (>=18 years) whose serum creatinine is in a steady state. eGFR calculations are not valid for patients with acute kidney injury and for patients on dialysis. Creatinine-based estimates of kidney function may also be inaccurate in patients with reduced creatinine generation due to decreased muscle mass (e.g., malnutrition, severe hypoalbuminemia, sarcopenia, chronic neuromuscular disease, amputations, severe heart failure or liver disease) and in patients with increased creatinine generation due to increased muscle mass (e.g., muscle builders, anabolic steroids) or increased dietary intake. As drug clearance is proportional to total GFR and not GFR indexed to body surface area (BSA), in individuals with a BSA substantially different than 1.73 m2, drug dosing should be based on the reported eGFR value de-indexed from BSA by multiplying by the individual's BSA and dividing by 1.73. CKD is diagnosed based on abnormalities of kidney structure or function, present for >3 months, with implications for health and disease. CKD is classified and staged based on cause, eGFR and albuminuria (quantified as urine albumin to creatinine ratio). An eGFR >60 mL/min/1.73 m2 in the absence of increased urine albumin excretion or structural abnormalities does not represent CKD. eGFR CKD Interpretation (mL/min/1.73 m2) stage >=90 G1 Normal 60-89 G2 Mild decrease 45-59 G3A Mild to moderate decrease 30-44 G3B Moderate to severe decrease 15-29 G4 Severe decrease <15 G5 Kidney failure Ordering Provider: ESTHER PATEL Report Released Date/Time: Dec 30, 2023 08:19 AM Reporting Lab: [address] [phone] Performing Lab: [address] [phone] CREATININE 1.26 mg/dL H 0.72-1.25 UREA NITROGEN 20 mg/dL 9-25 GLUCOSE 172 mg/dL H 74-100 SODIUM 140 mmol/L 136-145 POTASSIUM 4.4 mmol/L 3.5-5.1 CHLORIDE 106 mmol/L 98-107 CO2 25 mmol/L 22-29 CALCIUM 9.5 mg/dL 8.4-10.2 TOTAL PROTEIN 7.2 g/dL 6.4-8.3 ALBUMIN 4.2 g/dL 3.5-5.2 TOTAL BILIRUBIN 0.5 mg/dL 0.2-1.2 AST 18 U/L 5-34 ALT 31 U/L 0-55 ANION GAP 9 meq/L 3-19 ALK PHOS 94 U/L 40-150 eGFR (CKD-EPI) 59 Immunizations: All administered on the encounter date This section contains immunizations associated to the Encounter. Immunization Series Date Issued Administered By Site Reaction Lot Number CVX Code Drug Director Supplier Quality Comment(s) Source COVID-19 (MODERNA), MRNA, LNP-S, PF, 50 MCG/0.5 ML (AGES 12+ YEARS) Dec 30, 2023 LY MCCLAIN LEFT DELTO ID [id number] [employer] ADMINISTERE D AT [place], [place] [facility] [place] [facility] INFLUENZA, HIGH-DOSE, TRIVALENT, PF Dec 30, 2023 LY MCCLAIN RIGHT DELTO ID [id number] A 135 [employer] ADMINISTERE D AT [facility] Social History: Smoking Status (Most current) and Tobacco Use (All prior to encounter date) This section includes the most current, and the historical, smoking and tobacco- related health factors from the [place] facility where the Encounter took place. Current Smoking Status This section includes the most current smoking, or tobacco-related health factor, from the [place] facility where the Encounter took place. Date/Time Current Smoking Status Comment Facil ity Dec 30, 2023 08:00 AM VA-TOBACCO FORMER USER [facility] Tobacco Use History This section includes a history of the smoking, or tobacco-related health factors, that were collected on or before the date of the Encounter. The data comes from the [place] facility where the Encounter took place. Date/Time Smoking Status/Tobacco Use Comment F acility Dec 30, 2023 08:00 AM VA-TOBACCO QUIT 15 YRS OR MORE [facility] Jan 10, 2023 08:00 AM VA-TOBACCO FORMER USER [facility] Jan 10, 2023 08:00 AM VA-TOBACCO QUIT 15 YRS OR MORE [facility] Jan 18, 2022 08:00 AM VA-TOBACCO FORMER USER [facility] Jan 18, 2022 08:00 AM VA-TOBACCO QUIT 15 YRS OR MORE [facility] Jan 28, 2021 08:00 AM VA-TOBACCO FORMER USER [facility] Jan 28, 2021 08:00 AM VA-TOBACCO QUIT 15 YRS OR MORE [facility] Feb 11, 2020 01:30 PM VA-TOBACCO FORMER USER [facility] Feb 11, 2020 01:30 PM VA-TOBACCO QUIT 15 YRS OR MORE [facility] Mar 01, 2019 08:41 AM VA-TOBACCO FORMER USER [facility] Mar 01, 2019 08:41 AM VA-TOBACCO QUIT 15 YRS OR MORE [facility] Mar 03, 2018 06:59 AM VA-TOBACCO FORMER USER [facility] Mar 03, 2018 06:59 AM VA-TOBACCO QUIT 15 YRS OR MORE [facility] Sep 03, 2016 07:17 AM V9 QUIT TOBACCO >7 YEARS AGO [facility] Mar 21, 2014 08:37 AM V9 QUIT TOBACCO >7 YEARS AGO [facility] May 30, 2013 08:31 AM V9 QUIT TOBACCO >12 MO & <7 YRS AGO [facility] August 02, 2012 08:08 AM V9 QUIT TOBACCO >12 MO & <7 YRS AGO [facility] Apr 14, 2011 08:42 AM V9 QUIT TOBACCO >12 MO & <7 YRS AGO [facility] Jun 23, 2010 01:06 PM V9 QUIT TOBACCO IN THE LAST 12 MONTHS [facility] July 24, 2009 09:14 AM TOBACCO OFFERRED PT MEDS (PROVID ER) [facility] July 24, 2009 09:14 AM V9 CURRENT TOBACCO USER [facility] July 24, 2009 09:14 AM V9 TOBACCO OFFERED [facility] Jan 21, 2009 12:55 PM V9 CURRENT TOBACCO USER [facility] Jan 21, 2009 12:55 PM V9 TOBACCO OFFERED [facility] July 19, 2008 08:16 AM TOBACCO OFFERRED PT MEDS (PROVID ER) [facility] July 19, 2008 08:16 AM V9 CURRENT TOBACCO USER [facility] July 19, 2008 08:16 AM V9 TOBACCO OFFERED [facility] Encounter Notes: All associated encounter notes This section contains the clinical notes associated to the Encounter. Date/Time Encounter Note(s) Provider Source July 10, 2024 07:07 AM PRIMARY CARE LETTERS: LOCAL TITLE: PC LETTER TEST RESULTS STANDARD TITLE: PRIMARY CARE LETTERS DATE OF NOTE: JULY 10, 2024@07:07 ENTRY DATE: JULY 10, 2024@07:07:28 AUTHOR: ESTHER PATEL EXP COSIGNER: URGENCY: STATUS: COMPLETED [address] [address] Mr. KELSIE HENSLEY [address] [place] [address] JULY 10, 2024 Dear Mr. KELSIE HENSLEY Thank you for getting your lab work done...I appreciate it! A copy of your test results is attached below, and your diabetes control has improved!!! Good work!! Please call us if you have questions. You can reach us at (toll free number) or [phone] (local number). If you are enrolled in [employer], and utilize those services, you may prefer to contact us by secure message. Thank you for your service to our Country. We are honored to be able to provide medical care to you. Recent labwork Collection DT Specimen Test Name Result Units Ref Range 07/09/2024 08:00 BLOOD !! GLYCOHEMOGLOBIN 8.8 H % 4.4 - 5.6 07/09/2024 08:00 PLASMA!! SODIUM 139 mmol/L 136 - 145 !! POTASSIUM 4.4 mmol/L 3.5 - 5.1 !! CHLORIDE 107 mmol/L 98 - 107 !! CO2 24 mmol/L 22 - 29 !! ANION GAP 8.0 mEq/L 3 - 19 !! GLUCOSE 122 H mg/dL 74 - 100 !! UREA NITROGEN 29 H mg/dL 9 - 25 !! CREATININE 1.14 mg/dL 0.72 - 1.25 !! eGFR (CKD-EPI) 67 SEE EVAL !! CALCIUM 9.4 mg/dL 8.4 - 10.2 Sincerely, /merry PATEL MD Primary Care Physician Patient Record Number [id number] ESTHER PATEL [facility] July 06, 2024 08:19 AM ADDENDUM: LOCAL TITLE: Addendum STANDARD TITLE: ADDENDUM DATE OF NOTE: JULY 06, 2024@08:19 ENTRY DATE: JULY 06, 2024@08:19 AUTHOR: JOANNE PAIGE EXP COSIGNER: URGENCY: STATUS: COMPLETED [facility] will get labs 07/09/24. /merry PAIGE [employer] Sales Representative Signed: 07/06/2024 08:19 Receipt Acknowledged By: 07/06/2024 08:32 /merry PATEL MD Primary Care Physician --- Original Document --- 07/06/24 Pc Chart Review Note: Time to update diabetes blood work; name date. /merry PATEL MD Primary Care Physician Signed: 07/06/2024 06:16 Receipt Acknowledged By: * AWAITING SIGNATURE * JOANNE PAIGE STEPHANIE T [facility] July 06, 2024 06:16 AM PRIMARY CARE NOTE: LOCAL TITLE: Pc Chart Review Note STANDARD TITLE: PRIMARY CARE NOTE DATE OF NOTE: JULY 06, 2024@06:16 ENTRY DATE: JULY 06, 2024@06:16:48 AUTHOR: SETHER PATEL EXP COSIGNER: URGENCY: STATUS: COMPLETED Pc Chart Review Note Has ADDENDA Time to update diabetes blood work; name date. /cornelius/ ESTHER PATEL MD Primary Care Physician Signed: 07/06/2024 06:16 Receipt Acknowledged By: 07/06/2024 09:12 /cornelius/ JOANNE PAIGE [employer] Sales Representative 07/06/2024 ADDENDUM STATUS: COMPLETED will get labs 07/09/24. /cornelius/ JOANNE PAIGE [employer] Sales Representative Signed: 07/06/2024 08:19 Receipt Acknowledged By: 07/06/2024 08:32 /cornelius/ ESTHER PATEL MD Primary Care Physician ESTHER PATEL [facility] Apr 10, 2024 06:44 AM PRIMARY CARE LETTERS: LOCAL TITLE: PC LETTER TEST RESULTS STANDARD TITLE: PRIMARY CARE LETTERS DATE OF NOTE: APR 10, 2024@06:44 ENTRY DATE: APR 10, 2024@06:44:40 AUTHOR: ESTHER PATEL EXP COSIGNER: URGENCY: STATUS: COMPLETED [address] [address] Mr. KELSIE HENSLEY [address] [place] [address] APR 10, 2024 Dear Mr. KELSIE HENSLEY Thank you for getting your lab work done...I appreciate it! A copy of your test results is attached below. Your sugars appear to be headed in the right direction, though your average glycohemoglobin is still up a bit. We'll get there, though! Please call us if you have questions. You can reach us at (toll free number) or [phone] (local number). If you are enrolled in [place] [employer], and utilize those services, you may prefer to contact us by secure message. Thank you for your service to our Country. We are honored to be able to provide medical care to you. Recent labwork Collection DT Specimen Test Name Result Units Ref Range 04/09/2024 07:48 BLOOD !! GLYCOHEMOGLOBIN 9.0 H % 4.4 - 5.6 04/09/2024 07:48 PLASMA!! SODIUM 142 mmol/L 136 - 145 !! POTASSIUM 4.3 mmol/L 3.5 - 5.1 !! CHLORIDE 107 mmol/L 98 - 107 !! CO2 23 mmol/L 22 - 29 !! ANION GAP 12.0 mEq/L 3 - 19 !! GLUCOSE 85 mg/dL 74 - 100 !! UREA NITROGEN 21 mg/dL 9 - 25 !! CREATININE 1.23 mg/dL 0.72 - 1.25 !! eGFR (CKD-EPI) 61 SEE EVAL !! CALCIUM 9.1 mg/dL 8.4 - 10.2 Sincerely, /merry PATEL MD Primary Care Physician Patient Record Number [id number] ESTHER PATEL [facility] Mar 30, 2024 08:10 AM ADDENDUM: LOCAL TITLE: Addendum STANDARD TITLE: ADDENDUM DATE OF NOTE: MAR 30, 2024@08:10:21 ENTRY DATE: MAR 30, 2024@08:10:22 AUTHOR: JOANNE PAIGE EXP COSIGNER: URGENCY: STATUS: COMPLETED [facility] will get labs 04/09/24. /merry PAIGE [employer] Signed: 03/30/2024 08:11 Receipt Acknowledged By: 03/30/2024 08:23 /merry PATEL MD Primary Care Physician --- Original Document --- 03/30/24 Pc Chart Review Note: Time to check another diabetes blood test; name date. /merry PATEL MD Primary Care Physician Signed: 03/30/2024 06:11 Receipt Acknowledged By: * AWAITING SIGNATURE * JOANNE PAIGE STEPHANIE T [facility] Mar 30, 2024 06:11 AM PRIMARY CARE NOTE: LOCAL TITLE: Pc Chart Review Note STANDARD TITLE: PRIMARY CARE NOTE DATE OF NOTE: MAR 30, 2024@06:11 ENTRY DATE: MAR 30, 2024@06:11:06 AUTHOR: ESTHER PATEL EXP COSIGNER: URGENCY: STATUS: COMPLETED Pc Chart Review Note Has ADDENDA Time to check another diabetes blood test; name date. /cornelius/ ESTHER PATEL MD Primary Care Physician Signed: 03/30/2024 06:11 Receipt Acknowledged By: 03/30/2024 08:33 /cornelius/ JOANNE PAIGE [employer] Sales Representative 03/30/2024 ADDENDUM STATUS: COMPLETED [facility] will get labs 04/09/24. /cornelius/ JOANNE PAIGE [employer] Signed: 03/30/2024 08:11 Receipt Acknowledged By: 03/30/2024 08:23 /cornelius/ ESTHER PATEL MD Primary Care Physician ESTHER PATEL [facility] Jan 01, 2024 02:47 PM PRIMARY CARE LETTERS: LOCAL TITLE: PC LETTER TEST RESULTS STANDARD TITLE: PRIMARY CARE LETTERS DATE OF NOTE: JAN 01, 2024@14:47 ENTRY DATE: JAN 01, 2024@14:47:24 AUTHOR: ESTHER PATEL EXP COSIGNER: URGENCY: STATUS: COMPLETED [address] [address] Mr. KELSIE HENSLEY [address] [place] [address] JAN 01, 2024 Dear Mr. KELSIE HENSLEY I have reviewed your recent tests, and wanted to let you know the results. Your glycohemoglobin (A1C) is indeed a bit too high at 9.1%, but I'm sure you can get it lower once again! A copy of your test results is attached below. Please call us if you have questions. You can reach us at (toll free number) or [phone] (local number). If you are enrolled in [employer], and utilize those services, you may prefer to contact us by secure message. Thank you for your service to our Country. We are honored to be able to provide medical care to you. Recent labwork Collection DT Specimen Test Name Result Units Ref Range 12/30/2023 08:24 PLASMA!! CHOLESTEROL 125 mg/dL 0 - 199 !! TRIGLYCERIDE 151 H mg/dL 0 - 149 !! HDL CHOLESTEROL 28 L mg/dL 40 - 69 !! DIRECT LDL CHOL. 81 mg/dL 0 - 100 !! SODIUM 140 mmol/L 136 - 145 !! POTASSIUM 4.4 mmol/L 3.5 - 5.1 !! CHLORIDE 106 mmol/L 98 - 107 !! CO2 25 mmol/L 22 - 29 !! ANION GAP 9.0 mEq/L 3 - 19 !! GLUCOSE 172 H mg/dL 74 - 100 !! UREA NITROGEN 20 mg/dL 9 - 25 !! CREATININE 1.26 H mg/dL 0.72 - 1.25 !! eGFR (CKD-EPI) 59 SEE EVAL !! CALCIUM 9.5 mg/dL 8.4 - 10.2 !! TOTAL PROTEIN 7.2 g/dL 6.4 - 8.3 !! ALBUMIN 4.2 g/dL 3.5 - 5.2 !! TOTAL BILIRUBIN 0.5 mg/dL 0.2 - 1.2 !! AST 18 U/L 5 - 34 !! ALT 31 U/L 0 - 55 !! ALK PHOS 94 U/L 40 - 150 12/30/2023 08:24 URINE CREATININE 79.2 mg/dL MICROALBUMIN ADITHYA 174.5 H mg/L 0.0 - 30.0 UT/CREA 220.3 ug/mg Crea 12/30/2023 08:24 BLOOD !! GLYCOHEMOGLOBIN 9.1 H % 4.4 - 6.4 12/30/2023 08:24 BLOOD WBC 11.0 H K/cmm 5.0 - 10.0 RBC 5.12 M/cmm 4.6 - 6.2 HGB 14.4 g/dL 14.0 - 18.0 HCT 45.0 % 42.0 - 52.0 MCV 87.9 fL 80.0 - 94.0 MCH 28.1 pg 27.0 - 31.0 MCHC 32.0 g/dL 32.0 - 36.0 RDW 12.7 % 11.0 - 16.0 PLT 221 K/cmm 150 - 450 MPV 11.1 fL 9.0 - 13.1 A-GRAN % 61.4 % 42.0 - 75.0 A-LYMPH % 21.2 L % 24.0 - 44.0 A-MONO % 6.7 H % 0.1 - 6.0 A-EOS % 9.1 % 0.0 - 10.0 A-BASO % 1.3 % 0.0 - 3.0 A-IG % 0.3 % 0.0 - 0.5 A-GRAN # 6.79 H K/cmm 1.40 - 6.50 A-LYMPH # 2.34 K/cmm 1.20 - 3.40 A-MONO # 0.74 H K/cmm 0.00 - 0.60 A-EOS # 1.00 H K/cmm 0.00 - 0.70 A-BASO # 0.14 K/cmm 0.00 - 0.20 A-IG # 0.03 K/cmm 0.00 - 0.06 NRBC 0.0 % 0.0 - 0.0 Sincerely, // ESTHER PATEL MD Primary Care Physician Patient Record Number [id number] ESTHER PATEL [facility] Dec 30, 2023 08:35 AM MEDICATION MGT NOTE: LOCAL TITLE: OUTPATIENT ESSENTIAL MEDICATION LIST FOR REVIEW (EM STANDARD TITLE: MEDICATION MGT NOTE DATE OF NOTE: DEC 30, 2023@08:35 ENTRY DATE: DEC 30, 2023@08:35:44 AUTHOR: ESTHER PATEL EXP COSIGNER: URGENCY: STATUS: COMPLETED Review of medications include: Patient allergies (Remote and Local) and active and pending prescriptions dispensed from this [place] (local) and dispensed from another [place] or [facility] facility (remote and pending) as well as local inpatient orders (pending and active) and clinic medications (IMOs), locally documented non-VA medications and local prescriptions that have or been discontinued in the past 90 days. With the exception of Allergies, if a category is not listed below, it means there were no relevant medications for the patient. ALLERGIES: Patient has answered NKA No Remote Allergy/ADR Data available for this patient ACTIVE OUTPATIENT MEDICATIONS LOCAL/REMOTE INSULIN,GLARGINE-YFGN 100UNIT/ML *VIAL* Directions: INJECT 60 UNITS UNDER THE SKIN DAILY FOR BLOOD SUGAR. DISCARD VIAL 28 DAYS AFTER OPENING - DO NOT MIX WITHOTHER INSULINS. *REPLACES LANTUS VIAL* Quantity: 6 for 90 days Issued: 01/11/23 Filled: 10/29/23 Expires: 01/12/24 Refills: 1 Status: ACTIVE POLYETHYLENE GLYCOL 3350 ORAL PWDR Directions: MIX 1 HEAPING TABLESPOONFUL IN LIQUID AND TAKE BY MOUTH DAILY FOR CONSTIPATION. DISSOLVE IN 8 OZ JUICE/WATER Quantity: 1530 for 90 days Issued: 04/08/23 Filled: 11/13/23 Expires: 04/08/24 Refills: 1 Status: ACTIVE SITAGLIPTIN (EQV-ZITUVIO) 100MG TAB Directions: TAKE ONE TABLET BY MOUTH DAILY FOR BLOOD SUGAR -REPLACES ALOGLIPTIN. STORE IN ORIGINAL CONTAINER. OPENED BOTTLES MUST BE USED WITHIN 3 MONTHS Quantity: 90 for 90 days Issued: 10/03/23 Filled: 10/03/23 Expires: 01/01/24 Refills: 0 Status: ACTIVE No remote medications found. PENDING OUTPATIENT MEDICATIONS (LOCAL/REMOTE): No local medications found. No remote medications found. ACTIVE NONVA MEDICATIONS (LOCAL): AMLODIPINE BESYLATE 10MG TAB Directions: 10MG MOUTH DAILY Status: ACTIVE ASPIRIN 81MG EC TAB Directions: 81MG MOUTH DAILY Status: ACTIVE ATENOLOL 100MG TAB Directions: 100MG MOUTH DAILY Status: ACTIVE CLONIDINE HCL 0.2MG TAB Directions: 0.2MG MOUTH EVERY DAY Status: ACTIVE GLIMEPIRIDE 4MG TAB Directions: 4MG MOUTH DAILY Status: ACTIVE HYDROCHLOROTHIAZIDE 25MG TAB Directions: 25MG MOUTH DAILY Status: ACTIVE LISINOPRIL 40MG TAB Directions: 40MG MOUTH EVERY MORNING Status: ACTIVE METFORMIN HCL 1000MG TAB Directions: 1000MG MOUTH TWICE A DAY Status: ACTIVE MULTIVITAMIN/MINERALS THERAPEUT CAP/TAB Directions: 1 CAP(S)/TAB MOUTH DAILY Status: ACTIVE OUTPATIENT MEDICATIONS (LOCAL)WITHIN 90 DAYS: No local medications found. DISCONTINUED OUTPATIENT MEDICATIONS (LOCAL) WITHIN 90 DAYS: ALOGLIPTIN 12.5MG TAB Directions: TAKE ONE TABLET BY MOUTH DAILY FOR BLOOD SUGAR Quantity: 90 for 90 days Issued: 01/11/23 Filled: 07/02/23 Expires: 01/12/24 Refills: 1 Status: DISCONTINUED CLINIC MEDICATIONS (LOCAL): No local medications found. /es/ ESTHER PATEL MD Primary Care Physician Signed: 12/30/2023 08:36 ESTHER PATEL [facility] Dec 30, 2023 08:27 AM PRIMARY CARE NOTE: LOCAL TITLE: PC PROGRESS NOTE STANDARD TITLE: PRIMARY CARE NOTE DATE OF NOTE: DEC 30, 2023@08:27 ENTRY DATE: DEC 30, 2023@08:28:08 AUTHOR: ESTHER PATEL EXP COSIGNER: URGENCY: STATUS: COMPLETED 78 year old WHITE MALE here for a follow-up visit. Problems as follow: Type 2 diabetes; meds below, though now on 75 units glargine (Lantus) due to rising sugars. Weight up 18# Allergies: Patient has answered NKA Medications: Active and Recently Outpatient Medications (including Supplies): Active Outpatient Medications Status 1) INSULIN,GLARGINE-YFGN 100UNIT/ML *VIAL* INJECT 60 ACTIVE UNITS UNDER THE SKIN DAILY FOR BLOOD SUGAR. DISCARD VIAL 28 DAYS AFTER OPENING - DO NOT MIX WITHOTHER INSULINS. *REPLACES LANTUS VIAL* 2) POLYETHYLENE GLYCOL 3350 ORAL PWDR MIX 1 HEAPING ACTIVE TABLESPOONFUL IN LIQUID AND TAKE BY MOUTH DAILY FOR CONSTIPATION. DISSOLVE IN 8 OZ JUICE/WATER 3) SITAGLIPTIN (EQV-ZITUVIO) 100MG TAB TAKE ONE TABLET ACTIVE BY MOUTH DAILY FOR BLOOD SUGAR -REPLACES ALOGLIPTIN. STORE IN ORIGINAL CONTAINER. OPENED BOTTLES MUST BE USED WITHIN 3 MONTHS Active Non-VA Medications Status 1) Non-VA AMLODIPINE BESYLATE 10MG TAB 10MG MOUTH DAILY ACTIVE 2) Non-VA ASPIRIN 81MG EC TAB 81MG MOUTH DAILY ACTIVE 3) Non-VA ATENOLOL 100MG TAB 100MG MOUTH DAILY ACTIVE 4) Non-VA CLONIDINE HCL 0.2MG TAB 0.2MG MOUTH EVERY DAY ACTIVE 5) Non-VA GLIMEPIRIDE 4MG TAB 4MG MOUTH DAILY ACTIVE 6) Non-VA HYDROCHLOROTHIAZIDE 25MG TAB 25MG MOUTH DAILY ACTIVE 7) Non-VA LISINOPRIL 40MG TAB 40MG MOUTH EVERY MORNING ACTIVE 8) Non-VA METFORMIN HCL 1000MG TAB 1000MG MOUTH TWICE A ACTIVE DAY 9) Non-VA MULTIVITAMIN/MINERALS THERAPEUT CAP/TAB 1 ACTIVE CAP(S)/TAB MOUTH DAILY 12 Total Medications Review of Systems: General: +weight gain Respiratory: Negative for cough Cardiac: Negative for chest pain GI: Negative for abdominal pain; umbilical hernia stable without pain Psych: mood stable; negative for SI. Physical Exam: SVS - Vital Signs Selected Measurement DT BP TEMP RESP PULSE POx F(C) (L/MIN)(%) 12/30/2023 07:54 155/86 97.4(36.3) 18 77 95 Measurement DT WEIGHT LB(KG)[BMI] 12/30/2023 07:54 296.4(134.44)[38*] GENERAL: Alert WHITE MALE in NAD; appropriate demeanor SKIN: No worrisome lesions; scattered seborrheic keratoses EARS: TMs intact; no effusions; canals clear NOSE/THROAT: OP clear; no exudates or oral lesions NECK: neck veins flat; no bruits; no masses or goiter; no stridor LUNGS: Clear to auscultation and percussion bilaterally; no wheezes, rales, rubs, or rhonchi HEART: RRR, no m/g/r ABD: +BS, soft, NT/ND, no masses, no HSM; obese; umbilical hernia without incarceration EXT: Pulses palpable Assessment and Plan: 1. Type 2 diabetes mellitus with hyperglycemia; check lab; continue metformin, glimepiride, sitagliptin, glargine insulin 2. Essential (primary) hypertension; check lab; continue atenolol, amlodipine, lisinopril, HCTZ, clonidine Lab: A1C, microalbumin, CBC, diff, CMP, lipids Time spent face to face and chart review: 30 minutes Medication Reconciliation: The Outpatient Essential Medication List for review (EMLR) was reviewed with the patient/caregiver and the patient was provided an updated reconciled medication list. Discrepancies were corrected or sent to the ordering provider to correct. The above topics were covered with the patient/caregiver, all questions were answered, and the patient/caregiver voiced understanding and agreement. Follow up: prn Suicide Screen: C-SSRS Screening [place]-Suicide Severity Rating Scale (C-SSRS Screener) 1. Over the past month, have you wished you were or wished you could go to sleep and not wake up? No 2. Over the past month, have you had any actual thoughts of killing yourself? No 3. Over the past month, have you been thinking about how you might do this? Response not required due to responses to other questions. 4. Over the past month, have you had these thoughts and had some intention of acting on them? Response not required due to responses to other questions. 5. Over the past month, have you started to work out or worked out the details of how to kill yourself? Response not required due to responses to other questions. 6. If yes, at any time in the past month did you intend to carry out this plan? Response not required due to responses to other questions. 7. In your lifetime, have you ever done anything, started to do anything, or prepared to do anything to end your life (for example, collected pills, obtained a gun, gave away valuables, went to the roof but didn't jump)? No 8. If YES, was this within the past 3 months? Response not required due to responses to other questions. 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 Patient advised to carry a list of current medications and any allergies with them in the event of emergency situations. Yes - /Caregiver verbalized understanding of topics discussed and education provided Provider notified of elevated B/P >/= 140/90. Yes Alcohol Use Screen (AUDIT-C): Alcohol Screen: SCREEN FOR ALCOHOL (AUDIT-C) An alcohol screening test (AUDIT-C) was negative (score=0). 1. How often did you have a drink containing alcohol in the past year? Consider a drink to be a 12 ounce can or bottle of regular beer, 8 ounces of malt liquor, a 5 ounce glass of table wine, or a 1.5 ounce shot of liquor (like scotch, gin, or vodka). Never 2. How many drinks containing alcohol did you have on a typical day when you were drinking in the past year? Response not required due to responses to other questions. 3. How often did you have six or more drinks on one occasion in the past year? Response not required due to responses to other questions. Depression Screening: Perform PHQ-2 A PHQ-2 screen was performed. The score was 0 which is a negative screen for depression. Over the past two weeks, how often have you been bothered by the following problems? 1. Little interest or pleasure in doing things Not at all 2. Feeling down, depressed, or hopeless Not at all Homelessness/Food Insecurity Screen: In the past 2 months, have you been living in stable housing that you own, rent, or stay in as part of a household? Yes - Living in stable housing. Are you worried or concerned that in the next 2 months you may NOT have stable housing that you own, rent, or stay in as part of a household? No - Not worried about housing near future [facility] reports the following: Within the past 12 months, you worried whether your food would run out before you got money to buy more. Never true Within the past 12 months, the food you bought just didn't last and you didn't have money to get more. Never true Sexual Orientation: The patient thinks of their sexual orientation as: Straight or Heterosexual ADL/IADL Functional Measures(V9): Incontinence Screen: Within the past 12 months, has the patient had any characteristics of incontinence (ability, voiding, leakage, etc.)? No incontinence. Falls Screen: Patient does not report falls within the past 12 months. Dementia Warning Signs: Please indicate below whether the patient or caregiver report any warning signs of Dementia? No warning signs of dementia noted. [place] Index of [place] in Activities of Daily Living: GLASGOW INDEX FOR ADL ASSESSMENT: GLASGOW Index of [place] in Activities of Daily Living was completed at this encounter. BATHING: Patient needs no supervision, direction or personal assistance with bathing. DRESSING: Patient needs no supervision, direction or personal assistance with dressing. TOILETING: Patient needs no supervision, direction or personal assistance with toileting. TRANSFERRING: Patient needs no supervision, direction or personal assistance with transferring. CONTINENCE: Patient needs no supervision, direction or personal assistance with bowel continence. FEEDING: Patient needs no supervision, direction or personal assistance with feeding/eating. ENTER TOTAL SCORE BELOW: TOTAL POINTS: = [ 6 ] NOTE: 6-5 = FULL FUNCTION (patient independent) INSTRUMENTAL ACTIVITIES OF DAILY LIVING (IADL) SCALE ([place]) Telephone: 1 point - Looks up numbers, dials, receives and makes calls without help Shoppin point - Takes care of all shopping needs independently Food preparation: 1 point - Plans, prepares, and serves adequate meals independently Housekeepin point - Maintains house alone or with occasional assistance (e.g., heavy work domestic help ) Laundry: 1 point - Able to do personal laundry completely. Mode of transportation: 1 point - Travels independently on public transportation or drives own car Responsibility for own medications: 1 point - Is responsible for taking medication in correct dosages at correct time Ability to handle finances: 1 point - Manages financial matters independently (budgets, writes checks, pays rent and bills, goes to bank), collects and keeps track of income SCORING: The total score may range from 0 - 8. A lower score indicates a higher level of dependence. Total score: 8 points Learning Readiness Assessment: Preferred language for discussing health care Peruvian CONCUR WITH PREVIOUSLY DOCUMENTED ASSESSMENT Comment: 01/18/22 RESPONSE Tobacco Use Screening: The patient is a former tobacco user. The patient quit fifteen or more years ago. PAVE Foot Check: A complete foot check was completed at this encounter. VISUAL INSPECTION: Includes inspection for skin breaks, deformity, erythema, trauma, pallor on elevation, dependent rubor, nail deformities, extensive callus and pitting edema. Visual exam results: Abnormal Observations: Thickened toenails PEDAL PULSES: Includes palpation of dorsalis and posterior tibial pulses and signs/symptoms of vascular compromise like pain, pallor, parasthesia or paralysis. Present (even if diminished) SENSORY CHECK: Includes 10 gram Monofilament (Eloy-Boo) test of sensation. Intact (Greater than or equal to 80% of sites checked) Abnormal (Less than 80% of sites checked): Intact LOW-RISK: LOW RISK INFORMATION PROVIDED: 1. Advised patient not to walk barefoot. 2. Explained the importance of daily foot checks for changes. 3. Stressed the importance of daily foot hygiene, including bathing and complete drying. The patient verbalized understanding and was offered a detailed handout on diabetic foot care. /cornelius/ Shirley Randolph LPN LPN Signed: 12/30/2023 08:06 12/30/2023 ADDENDUM STATUS: COMPLETED COVID-19 Immunization: Moderna Monovalent (Spikevax) Administered: COVID-19 (MODERNA), MRNA, LNP-S, PF, 50 MCG/0.5 ML (AGES 12+ YEARS) Date Administered: Dec 30, 2023 08:00 Director Supplier Quality: [employer]. Lot: [id number] Exp Date: July 27, 2024 NDC: [id number] Admin Route/Site: INTRAMUSCULAR/LEFT DELTOID Dosage: 0.5mL Vaccine Information Statement(s): COVID-19 MRNA VACCINE (12+ YRS) VACCINE VIS Dec 23, 2022 ([facility]) Order By: Policy Administered By: Ly Mcclain Vaccine administered without complications. Influenza Immunization: Influenza, High-Dose, Trivalent, Preservative Free (Fluzone-Syringe) Administered: INFLUENZA, HIGH-DOSE, TRIVALENT, PF Date Administered: Dec 30, 2023 08:00 Director Supplier Quality: [employer] Lot: [id number] Exp Date: Sep 03, 2024 NDC: [id number] Admin Route/Site: INTRAMUSCULAR/RIGHT DELTOID Dosage: 0.5mL Vaccine Information Statement(s): INFLUENZA(FLU) VACC(INACTIVATED OR RECOMBINANT)VIS Oct 10, 2020 ([facility]O) Order By: Policy Administered By: Ly Mcclain The Influenza Vaccine Information Statement (VIS) was reviewed with the patient/caregiver which lists the benefits and risks of the vaccine and the risks of not receiving the Influenza vaccine. The patient/caregiver denied any prior severe reaction to this vaccine or its components or a severe allergic reaction, such as anaphylaxis, to any vaccine or any injectable therapy. The patient/caregiver gave verbal consent to receive the vaccine. Eye Care At-Risk Screen : Patient identified to be at risk for the following eye condition(s): DIABETIC RETINOPATHY: Diabetes Diagnosis Information: Encounter Diagnosis: 12/30/2023@08:30 E11.9 (ICD-10-CM) Type 2 Diabetes Mellitus without Complications rank: SECONDARY Prov. Narr. - Type 2 Diabetes Mellitus without Complications Action: Referral Ordered: Tele-Eye Screening /es/ Ly Mcclain LPN Staff GRANITE SANDBLASTER APPRENTICE Signed: 12/30/2023 09:44 SHIRLEY RANDOLPH [facility]
--- OUTSIDE RECORDS SUMMARY | 2024-09-27 05:20 | XMS_ITS | Encounter Summary ---
Author Name [facility] [place] [facility] Address [address] [place] [id number] Care Team Providers Care Teacher Emotionally Impaired Name Role Phone DEMETRIA PATELBRITTANY Primary Care Provider [facility] Insurance Providers: All historical and current [...] PART A Mar 07, 2010 PART A [id number] [phone] [place] PAT[place] (WNR) MEDICARE (M) PART A Mar 07, 2010 PART A [id number] [place] Selected Encounter This section includes the information on record at [place] for the Encounter. Date/Time Encounter Type Encounter Description Reason Provider Source Sep 27, 2024 09:20 AM COMPRE OPH EXAM EST PT 1/> OPTOMETRY ICD-10-CM E11.3392 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, l eye BON MAGALLON Encounter Template Text not used by [facility] Assessments - Encounter Diagnoses This section includes the primary and secondary diagnoses documented for the Encounter. Date/Time Primary/Secondary Diagnosis Diagnosis Name Provider Source Sep 27, 2024 09:50 AM PRIMARY 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, l eye [facility]I [facility] Sep 27, 2024 09:50 AM SECONDARY Benign neoplasm of left choroid LALI [facility] Sep 27, 2024 09:50 AM SECONDARY Benign neoplasm of right choroid LALI [facility] Sep 27, 2024 09:50 AM SECONDARY Presence of intraocular lens LALI G[facility] Sep 27, 2024 09:50 AM SECONDARY Type 2 diab with mild nonp rtnop without mclr edema, r eye LALI GIRON [facility] Encounter Notes: All associated encounter notes This section contains the clinical notes associated to the Encounter. Date/Time Encounter Note(s) Provider Source Sep 27, 2024 09:29 AM OPTOMETRY RESIDENT NOTE: LOCAL TITLE: OPTOMETRY RESIDENT NOTE STANDARD TITLE: OPTOMETRY RESIDENT NOTE DATE OF NOTE: SEP 27, 2024@09:29 ENTRY DATE: SEP 27, 2024@09:29:46 AUTHOR: LALI GIRON EXP COSIGNER: BON MAGALLON URGENCY: STATUS: COMPLETED OPTOMETRY RESIDENT NOTE Has ADDENDA Type of exam: Limited Chief complaint/Reason for visit: 79YO WHITE patient presents for DFE to evaluate mod NPDR OD. Glases from 03/31 appt got really scratched, optical is going to send him new lenses; vision was adequate with them. OS tearing and itchy; pt. does not use eye drops. Denies flashes, floaters, diplopia. Bgl range: does not check Ocular History: CIELO: [facility]/15 [facility], [facility]23 Richar BILLINGS (-) Eye Injury: (+) Eye Surgery/Laser Tx: CEIOL OU 2019 (-) Eye Infection: (+) Other: choroidal nevus OU, SHAAMR, NPDR- moderate OD/mild OS (-) History of Cancer (-) History of Known CVA (+) Use of Anticoagulant - 81 ASA Ocular Medications: None (-) History of allergies to ocular medications Family history: None Smoking history: (+) Previous smoker Duration, packs per day: 30 years, 1.5 ppd When did pt quit smokin years Diabetes History: Date of Dx: 2010 Last HemA1C: Z GLYCOHEMOGLOBIN (HPLC) 07/09/24 08:00 8.8 H 04/09/24 07:48 9.0 H 12/30/23 08:24 9.1 H Additional Diabetic retinopathy risk factors: (+) Hypertension (-) Proteinuria (+) Dyslipidemia (-) Poor control of diabetes (-) Currently (-) Sedentary lifestyle/Lack of exercise Additional Risk Factors for Macular Degeneration: (+) Patient is over age 60 (+) Obesity (Centers for Disease Control and Prevention definition: BMI of 30 or more) (+) Pt has heritage (-) Pt is a Female Additional Glaucoma Risk Hx: (-) over age 40 (+) Pt is over age 60 (-) Pt has [place] heritage Medical history: Active problems - Computerized Problem List is the source for the followin. Hyperglycemia due to type 2 diabetes mellitus 2. Hypertension 3. Mixed hyperlipidemia 4. Constipation Allergies: Patient has answered NKA Medications: Active Outpatient Medications (including Supplies): Active Outpatient Medications Status 1) INSULIN,GLARGINE-YFGN 100UNIT/ML *VIAL* INJECT 75 UNITS ACTIVE UNDER THE SKIN DAILY . DISCARD VIAL 28 DAYS AFTER OPENING - DO NOT MIX WITHOTHER INSULINS. *REPLACES LANTUS VIAL* Indication: FOR BLOOD SUGAR 2) POLYETHYLENE GLYCOL 3350 ORAL PWDR MIX 1 HEAPING ACTIVE TABLESPOONFUL IN LIQUID AND TAKE BY MOUTH DAILY FOR CONSTIPATION. DISSOLVE IN 8 OZ JUICE/WATER 3) SITAGLIPTIN (EQV-ZITUVIO) 100MG TAB TAKE ONE TABLET BY MOUTH ACTIVE DAILY -REPLACES ALOGLIPTIN. STORE IN ORIGINAL CONTAINER. OPENED BOTTLES MUST BE USED WITHIN 3 MONTHS Indication: FOR BLOOD SUGAR Active Non-VA Medications Status 1) Non-VA AMLODIPINE BESYLATE 10MG TAB 10MG MOUTH DAILY ACTIVE 2) Non-VA ASPIRIN 81MG EC TAB 81MG MOUTH DAILY ACTIVE 3) Non-VA ATENOLOL 100MG TAB 100MG MOUTH DAILY ACTIVE 4) Non-VA ATORVASTATIN CALCIUM TAB 20MG 20MG MOUTH DAILY ACTIVE Indication: FOR CHOLESTEROL 5) Non-VA CLONIDINE HCL 0.2MG TAB 0.2MG MOUTH EVERY DAY ACTIVE 6) Non-VA GLIMEPIRIDE 4MG TAB 4MG MOUTH DAILY ACTIVE 7) Non-VA HYDROCHLOROTHIAZIDE 25MG TAB 25MG MOUTH DAILY ACTIVE 8) Non-VA LISINOPRIL 40MG TAB 40MG MOUTH EVERY MORNING ACTIVE 9) Non-VA METFORMIN HCL 1000MG TAB 1000MG MOUTH TWICE A DAY ACTIVE 10) Non-VA MULTIVITAMIN/MINERALS THERAPEUT CAP/TAB 1 CAP(S)/TAB ACTIVE MOUTH DAILY 13 Total Medications Medication list reviewed by: O.Angelito. Medication list is accurate per patient/doctor review, Pt/significant other reports patient taking ALL VA, Non VA, OTC medications as listed on medication tab. Describe Discrepancies: Printed copy of medication list provided to patient and/or significant other and reviewed: Yes Explained to patient and/or significant other the importance of keeping providers updated on medication changes and to carrying an updated list of medication at all times in case of an emergency situation. Yes Medication changes reviewed, patient/significant other verbalized understanding, provided updated list. VA: distance cc 20/20 20/20- Habitual Rx: OD: +0.75 -1.50 x090 OS: +0.25 DS Add: +2.50 EOMs: Full and unrestricted OU, No Diplopia CVF: Full to finger count OU Pupils: PERRL, no APD SLIT LAMP EXAM: Lids/lashes: Clear OU Conj/sclera: tr papillae T OS>OD Cornea: tr spk inf OS Anterior chamber: Deep/quiet OU Iris/pupil: Flat/round OU, No rubeosis OU Informed consent obtained prior to instillation of all diagnostic pharmaceutical agents. IOPs (Goldmann applanation): igt Altafluor Benox OD, OS OD: 10 OS: 11 Time: 0944 Angles: VH 4 N/T OU OCULAR HEALTH: igt 1% Tropicacyl OD, igt 1% Tropicacyl OS, igt 2.5% Phenylephrine OD, igt 2.5% Phenylephrine OS Time: 943 Lenses used for viewinD, 20D LENS: OD: PCIOL well centered and clear centrally OS: PCIOL well centered and clear centrally C/D: H/ V OD: 0.20/0.20, NRRI, No NVD, No Hemes, No Pallor, No Edema OS: 0.20/0.20, NRRI, No NVD, No Hemes, No Pallor, No Edema Size: average MACULA: OD: Flat, even pigment, No DME OS: Flat, even pigment, No DME VESSELS: OD: 2/3 AV OS: 2/3 AV POSTERIOR POLE: OD: Clear, No NVE, 0.5 DD flat choroidal nevus (-)elevation/srf/lipofuscin, scattereddot hemes along all arcades, IT arcade dot heme OS: Clear, No NVE, 2x 0.5 DD flat choroidal nevus along ST arcades (-) elevation/srf/lipofuscin, 1 CWS along IT arcade, dot hemes along ST arcades, [address] arcade VITREOUS: OD: Clear OS: Clear PERIPHERY: OD: No holes, tears or breaks, reticular degeneration outside arcades OS: No holes, tears or breaks, 0.50DD ST choroidal nevi (-) elevation/srf/lipofuscin, reticular degeneration outside arcades Assessment: 1. 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 Pseudophakia OU 3. Presbyopia OU - BCVA 20/20 OD,OS 4. Choroidal Nevi OU - small/flat 5. Dry Eye OU Plan: 1. Discussed with patient the importance of good blood pressure, blood sugar, cholesterol and lipid control. Discussed with patient the importance of regular, preventative eye screenings in the future to reduce risk of vision loss secondary to diabetes. Monitor per peer review guidelines. 2,3. Pt to continue with 03/31 spec rx; optical is mailing pt new lenses as they were very scratched after 6 months. Monitor 6 month at E. 4. Patient informed that most choroidal nevi are benign but that a small percentage can become malignant. Patient informed that they will be re-examined at appropriate intervals to ensure that the nevus develops no signs of malignancy. Monitor 6 months or sooner prn. 5. Patient educated on the use of VA artificial tears 3-4 times per day OU. Patient educated regarding proper lid hygiene and warm compresses daily OU. Patient to RTC should symptoms worsen or not improve with supportive intervention. The Cost/caregiver voiced understanding of topics covered/discussed in today's visit. Next visit: 6 months with resident-3 clinic for diabetic comprehensive eye exam -Dextran mailed today /cornelius/ BON MAGALLON Staff Piece Goods Clerk Signed: 09/27/2024 11:26 for LALI GIRON Optometry Resident /cornelius/ BON MAGALLON Staff Piece Goods Clerk Cosigned: 09/27/2024 11:26 09/27/2024 ADDENDUM STATUS: COMPLETED This service was performed in whole or in part by a resident at a [place] [facility] or Clinic, supervised in accordance with [place] policy. I have discussed the patient with the examining resident. I agree with the clinical findings and the assessment and plan. /cornelius/ BON MAGALLON Staff Piece Goods Clerk Signed: 09/27/2024 11:27 BON MAGALLON [facility]
--- OUTSIDE RECORDS SUMMARY | 2024-10-16 10:59 | XMS_ITS | Continuity of Care Document ---
Author Name [facility] Organization [facility] Care Team Providers Care Manager Of Administration Name Role Phone [facility] Unavailable Unavailable Problems Combined list of problems from Department of Defense and Veterans Affairs facilities. It does not include entries that were removed or entered in error. Problem Status Onset Date Problem Type Date of Resolution Comments Source Osteoarthritis Inactive 9 Condition 09/03/2016 [facility] Gastroesophageal reflux disease Inactive 8 Condition 09/03/2016 [facility] Diabetes Mellitus Type II or unspecified Inactive 7 Condition 09/03/2016 [facility] Chronic constipation Inactive 4 Condition 09/03/2016 [facility] Hypertension Inactive 4 Condition 09/03/2016 [facility] Constipation Active Condition [facility] Hyperglycemia due to type 2 diabetes mellitus Active Condition [facility] Hypertension Active Condition [facility] Mixed hyperlipidemia Active Condition [facility] Benign essential hypertension (SNOMED CT 2423846) Inactive Condition 03/01/2019 [facility] Chronic kidney disease stage 3 Inactive Condition 01/28/2021 [facility] Diabetes mellitus (SNOMED CT 71550708) Inactive Condition 03/01/2019 [facility] OBSERV OTH SPEC SUSPEC COND Inactive Condition 09/03/2016 [facility] On examination - no disease present (SNOMED CT 14350030) Inactive Condition 09/03/2016 [facility] Diagnosis: ICD-10-CM E11.3392 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, l eye Active Diagnosis [facility] [place] Diagnosis: ICD-10-CM E11.3391 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, r eye Active Diagnosis [facility] [place] Diagnosis: ICD-10-CM Z71.9 Counseling, unspecified Active Diagnosis [facility] Diagnosis: ICD-10-CM Z13.9 Encounter for screening, unspecified Active Diagnosis [facility] Diagnosis: ICD-10-CM Z13.5 Encounter for screening for eye and ear disorders Active Diagnosis [facility] Diagnosis: ICD-10-CM E11.65 Type 2 diabetes mellitus with hyperglycemia Active Diagnosis [facility] Medications Combined list of outpatient medications from Department of Defense and Veterans Affairs facilities.Medications provided include 1) outpatient medications from the last 15 months, and 2) patient-reported medications. Medication Details Route Status Patient Instructions Prescription Expires Prescription Number Last Dispense Date Ordering Provider Order Date Order Qty Source AMLODIPINE BESYLATE 10MG TAB TAKE ONE TABLET BY MOUTH DAILY ORAL ACTIVE ANTHONY HERRERA SA QUE 2016 [facility] ASPIRIN 81MG TAB,EC TAKE ONE TABLET BY MOUTH DAILY ORAL ACTIVE ANTHONY HERRERA SA QUE 2017 [facility] ATENOLOL 100MG TAB TAKE ONE TABLET BY MOUTH DAILY ORAL ACTIVE Stacey HOLLINGSWORTH 2008 [facility] ATORVASTATI N [place] 20MG TAB TAKE ONE TABLET BY MOUTH DAILY ORAL ACTIVE AMANDAK IPTON L 2023 [facility] CLONIDINE HCL 0.2MG TAB TAKE ONE TABLET BY MOUTH QD ORAL ACTIVE Stacey HOLLINGSWORTH 2011 [facility] DEXTRAN 70/GLYCERIN 0.2%/HYPROM ELLOSE 0.3% SOLN,OPH PUT 1 DROP IN BOTH EYES FOUR TIMES A DAY FOR DRY EYES OPHTHA LMIC ACTIVE 09/28/2025 [id number] LALI GIRON 2024 45 [place] [facility] GLIMEPIRIDE 4MG TAB TAKE ONE TABLET BY MOUTH DAILY ORAL ACTIVE ANTHONY HERRERA SA QUE 2016 [facility] HYDROCHLORO THIAZIDE 25MG TAB TAKE ONE TABLET BY MOUTH DAILY ORAL ACTIVE ANTHONY HERRERA SA QUE 2014 [facility] INSULIN,GLA RGINE-YFGN 100UNIT/ML INJ INJECT 75 UNITS UNDER THE SKIN DAILY FOR BLOOD SUGAR. DISCARD VIAL 28 DAYS AFTER OPENING - DO NOT MIX WITHOTHE R INSULINS . *REPLACE S LANTUS VIAL* SUBCUT ANEOUS ACTIVE 01/01/2025 [id number] Marcus PATELON Ismael 2023 7 [facility] INSULIN,GLA RGINE-YFGN 100UNIT/ML INJ INJECT 60 UNITS UNDER THE SKIN DAILY FOR BLOOD SUGAR. DISCARD VIAL 28 DAYS AFTER OPENING - DO NOT MIX WITHOTHE R INSULINS . *REPLACE S LANTUS VIAL* SUBCUT ANEOUS DISCONT INUED (EDIT) 01/12/2024 [id number] Marcus PATEL 2022 6 [facility] LISINOPRIL 40MG TAB TAKE ONE TABLET BY MOUTH EVERY MORNING ORAL ACTIVE ANTHONY HERRERA SA 2014 [facility] METFORMIN HCL 1000MG TAB TAKE ONE TABLET BY MOUTH TWICE A DAY ORAL ACTIVE Marcus PATEL 2018 [facility] MULTIVITAMI NS W/MINERALS CAP/TAB TAKE 1 CAP(S)/T AB BY MOUTH DAILY ORAL ACTIVE Marcus PATELON Ismael 2018 [facility] POLYETHYLEN E GLYCOL 3350 PWDR,ORAL MIX 1 HEAPING TABLESPO ONFUL IN LIQUID AND TAKE BY MOUTH DAILY FOR CONSTIPA TION. DISSOLVE IN 8 OZ JUICE/WA TER ORAL SUSPEND ED 10/16/2025 [id number] Marcus PATELON L 2024 1530 [facility] POLYETHYLEN E GLYCOL 3350 PWDR,ORAL MIX 1 HEAPING TABLESPO ONFUL IN LIQUID AND TAKE BY MOUTH DAILY FOR CONSTIPA TION. DISSOLVE IN 8 OZ JUICE/WA TER ORAL DISCONT INUED 01/01/2025 [id number] 5 Marcus PATELON L 2023 1530 [facility] POLYETHYLEN E GLYCOL 3350 PWDR,ORAL MIX 1 HEAPING TABLESPO ONFUL IN LIQUID AND TAKE BY MOUTH DAILY FOR CONSTIPA TION. DISSOLVE IN 8 OZ JUICE/WA TER ORAL DISCONT INUED 04/08/2024 [id number] Marcus PATEL IPTON L 2023 1530 [facility] SITAGLIPTIN (EQV-ZITUVI O) 100MG TAB TAKE ONE TABLET BY MOUTH DAILY FOR BLOOD SUGAR -REPLACE S ALOGLIPT IN. STORE IN ORIGINAL CONTAINE R. OPENED BOTTLES MUST BE USED WITHIN 3 MONTHS ORAL ACTIVE 01/01/2025 [id number] Marcus PATEL IPTON L 2023 90 [facility] SITAGLIPTIN (EQV-ZITUVI O) 100MG TAB TAKE ONE TABLET BY MOUTH DAILY FOR BLOOD SUGAR -REPLACE S ALOGLIPT IN. STORE IN ORIGINAL CONTAINE R. OPENED BOTTLES MUST BE USED WITHIN 3 MONTHS ORAL DISCONT INUED 01/01/2024 [id number] Marcus PATEL IPTON L 2023 90 [facility] Immunizations Combined list of available immunizations from the Department of Defense and [facility] facilities. Immunization Series Date Given Administered By Site Reaction Lot Number CVX Code Drug Datastage Consultant Status Comments Source COVID-19 (MODERNA), MRNA, LNP-S, PF, 50 MCG/0.5 ML (AGES 12+ YEARS) 2023 LY CORDON L LEFT DELTO ID [id number] 312 complet ed [facility] INFLUENZA, HIGH-DOSE, TRIVALENT, PF 2023 LY CORDON L RIGHT DELTO ID [id number] 135 complet ed [facility] PNEUMOCOCCAL CONJUGATE PCV20, POLYSACCHARID E [id number] CONJUGATE, ADJUVANT, PF 1 2022 216 complet ed HISTORICA L INFORMATI ON - FROM OTHER REGISTRY, [place] [facility] COVID-19 (PFIZER), MRNA, LNP-S, PF, CATRACHITA-SUCROSE, 30 MCG/0.3 ML (AGES 12+ YEARS) 1 2022 CORNELIO RANDOLPH ER N RIGHT DELTO ID [id number] 309 complet ed [facility] INFLUENZA, HIGH-DOSE, QUADRIVALENT 2022 CORNELIO RANDOLPH ER N LEFT DELTO ID [id number] 197 complet ed [facility] COVID-19 (PFIZER), MRNA, LNP-S, BIVALENT BOOSTER, PF, 30 MCG/0.3 ML DOSE 1 2021 300 complet ed PFR; [id number]; 3 [facility] INFLUENZA, UNSPECIFIED FORMULATION 2021 88 complet ed [place] [facility] INFLUENZA, HIGH-DOSE, QUADRIVALENT 4 2021 197 complet [...] OTHER REGISTRY, [place] [facility] INFLUENZA, HIGH-DOSE, QUADRIVALENT 3 2020 197 complet ed HISTORICA L INFORMATI ON - FROM OTHER REGISTRY, [place] [facility] INFLUENZA, UNSPECIFIED FORMULATION 2020 88 complet ed [place] [facility] COVID-19 (MODERNA), MRNA, LNP-S, PF, 100 MCG/0.5 ML DOSE 2 2020 207 complet ed [place] [facility] COVID-19 (MODERNA), MRNA, LNP-S, PF, 100 MCG/0.5 ML DOSE 1 2020 207 complet ed [place] [facility] INFLUENZA, UNSPECIFIED FORMULATION 2019 88 complet ed [place] [facility] INFLUENZA, HIGH-DOSE, QUADRIVALENT 2 2019 197 complet ed HISTORICA L INFORMATI ON - FROM OTHER REGISTRY, [place] [facility] INFLUENZA, SEASONAL, INJECTABLE [address] Villaseñor--Lucio salinas [place] [facility] ZOSTER RECOMBINANT 2 2018 187 complet ed [facility] RECOMBINANT 1 2017 187 complet ed [facility] INFLUENZA, SEASONAL, INJECTABLE 2017 141 complet ed [facility] PNEUMOCOCCAL POLYSACCHARID E PPV23 2017 33 complet ed [facility] INFLUENZA A & B (HISTORICAL) 2016 88 complet ed [place] [facility] [place] TDAP 2016 115 complet ed [place] [facility] ZOSTER LIVE 2016 NONE 121 complet ed [facility] INFLUENZA, HIGH DOSE SEASONAL 1 2015 135 complet ed HISTORICA L INFORMATI ON - FROM OTHER REGISTRY, [place] [facility] INFLUENZA A & B (HISTORICAL) 2015 88 complet ed [place] [facility] [id number] (HISTORICAL) 2014 133 complet ed [facility] DTP 2014 01 complet ed [facility] TDAP (HISTORICAL) 2014 115 complet ed [facility] INFLUENZA A & B (HISTORICAL) 2013 88 complet ed [place] [facility] INFLUENZA A & B (HISTORICAL) 2012 88 complet ed [place] [facility] FLU,3 YRS (HISTORICAL) 2011 88 complet ed [facility] FLU,3 YRS (HISTORICAL) 2011 88 complet ed [facility] FLU,3 YRS (HISTORICAL) 2009 88 complet ed [facility] FLU,3 YRS (HISTORICAL) 2008 88 complet ed [facility] PNEUMOCOCCAL, UNSPECIFIED FORMULATION 2008 109 complet ed [facility] INFLUENZA A & B (HISTORICAL) 2007 88 complet ed [place] [facility] TD(ADULT) UNSPECIFIED FORMULATION 2007 139 complet ed [place] [facility] Results Combined list of recent chemistry, hematology and other laboratory results from Department of Defense and Veterans Affairs, ranging from 15 months to all on record, depending upon the facility. Order Name Results Value Reference Range Date Interpretation Specimen Comments Source GLYCOHEM OGLOBIN HEMOGLOBIN A1C/HEMOGL OBIN.TOTAL IN BLOOD BY HPLC 8.8 4.4 - 5.6 07/09 H Specimen Type: BLOOD Comment: Prediabetes : 5.7%-6.4% Diabetes: >= 6.5% [facility] guidelines for A1c interpretat ion: Glycemic control targets are based on Shared Decision Making between clinicians and patients. Criteria used to establish an A1c target recommendat ion can be found at https://www .[place].gov/daniel lityandpati entsafety/ and include the use of [...] 9.27. Ref: https://ngs p.org/CAPda ta.asp. The in-house Aligo D-100 analyzer has a historical CV <= 2%. Contact the laboratory for further performance characteris tics of this assay. Ordering Provider: LUAN PATEL Report Released Date/Time: July 06, 2024 08:33 AM Reporting Lab: [facility]NA BISHOP [address] [address] Performing Lab: [facility] [address] [phone] PANEL 1 CREATININE [MASS/VOLU ME] IN SERUM OR PLASMA 1.14 mg/dL 0.72 - 1.25 07/09 Specimen Type: PLASMA Comment: Estimated Glomerular Filtration [...] Ordering Provider: LUAN PATEL Report Released Date/Time: July 06, 2024 08:33 AM Reporting Lab: [facility] [address] [address] Performing Lab: JO[facility]NA B[facility] [address] [address] [facility] PANEL 1 UREA NITROGEN [MASS/VOLU ME] IN SERUM OR PLASMA 29 mg/dL 9 07/09 H Specimen Type: PLASMA Comment: Estimated Glomerular [...] Ordering Provider: LUAN PATEL Report Released Date/Time: July 06, 2024 08:33 AM Reporting Lab: [facility] [address] [address] Performing Lab: JOANNA BISH[facility] [address] [address] [facility] PANEL 1 GLUCOSE [MASS/VOLU ME] IN SERUM OR PLASMA 122 mg/dL 74 - 100 07/09 H Specimen Type: PLASMA Comment: Estimated Glomerular [...] Ordering Provider: LUAN PATEL Report Released Date/Time: July 06, 2024 08:33 AM Reporting Lab: [facility] [address] [address] Performing Lab: JOANNA B[facility] [address] [address] [facility] PANEL 1 SODIUM [MOLES/VOL UME] IN SERUM OR PLASMA 139 mmol/L 136 - 145 07/09 Specimen Type: PLASMA Comment: Estimated Glomerular Filtration [...] Ordering Provider: LUAN PATEL Report Released Date/Time: July 06, 2024 08:33 AM Reporting Lab: [facility] [address] [address] Performing Lab: JO[facility]NA B[facility] [address] [address] [facility] PANEL 1 POTASSIUM [MOLES/VOL UME] IN SERUM OR PLASMA 4.4 mmol/L 3.5 - 5.1 07/09 Specimen Type: PLASMA Comment: Estimated Glomerular Filtration [...] Ordering Provider: LUAN PATEL Report Released Date/Time: July 06, 2024 08:33 AM Reporting Lab: [facility] [address] [address] Performing Lab: JOANNA B[facility] [address] [address] [facility] PANEL 1 CHLORIDE [MOLES/VOL UME] IN SERUM OR PLASMA 107 mmol/L 98 - 107 07/09 Specimen Type: PLASMA Comment: Estimated Glomerular Filtration [...] Ordering Provider: LUAN PATEL Report Released Date/Time: July 06, 2024 08:33 AM Reporting Lab: [facility] [address] [facility] [address] Performing Lab: JO[facility] [address] [facility] [address] [facility] PANEL 1 CARBON DIOXIDE, TOTAL [MOLES/VOL UME] IN SERUM OR PLASMA 24 mmol/L - 07/09 Specimen Type: PLASMA Comment: Estimated Glomerular Filtration [...] Ordering Provider: LUAN PATEL Report Released Date/Time: July 06, 2024 08:33 AM Reporting Lab: [facility] [address] [facility] [address] Performing Lab: JO[facility]NA B[facility] [address] [facility] [address] [facility] PANEL 1 CALCIUM [MASS/VOLU ME] IN SERUM OR PLASMA 9.4 mg/dL 8.4 - 10.2 07/09 Specimen Type: PLASMA Comment: Estimated Glomerular Filtration [...] Ordering Provider: LUAN PATEL Report Released Date/Time: July 06, 2024 08:33 AM Reporting Lab: [facility] [address] [facility] [address] Performing Lab: JOANNA DARIO [address] [address] [facility] PANEL 1 ANION GAP 3 IN SERUM OR PLASMA 8 meq/L 3 - 19 07/09 Specimen Type: PLASMA Comment: Estimated Glomerular Filtration [...] Ordering Provider: LUAN PATEL Report Released Date/Time: July 06, 2024 08:33 AM Reporting Lab: [facility] [address] [facility] [address] Performing Lab: [facility] [address] [facility] [address] [facility] PANEL 1 GLOMERULAR FILTRATION RATE/1.73 SQ M.PREDICTE D [VOLUME RATE/AREA] IN SERUM, PLASMA OR BLOOD BY CREATININE -BASED FORMULA (CKD-EPI 2020) 67 07/09 Specimen Type: PLASMA Comment: Estimated Glomerular Filtration [...] Ordering Provider: LUAN PATEL Report Released Date/Time: July 06, 2024 08:33 AM Reporting Lab: [address] [address] Performing Lab: [address] [address] [facility] GLYCOHEM OGLOBIN HEMOGLOBIN A1C/HEMOGL OBIN.TOTAL IN BLOOD BY HPLC 9.0 4.4 - 5.6 04/09 H Specimen Type: BLOOD Comment: [facility] guidelines for A1c interpretat ion: Glycemic control targets are based on Shared Decision Making between clinicians and patients. Criteria used to establish an A1c target recommendat ion can be found at https://www .[place].gov/daniel lityandpati entsafety/ and include the use of [...] 9.27. Ref: https://ngs p.org/CAPda ta.asp. The in-house FastConnect-KnoCo D-100 analyzer has a historical CV <= 2%. Contact the laboratory for further performance characteris tics of this assay. Ordering Provider: LUAN PATEL Report Released Date/Time: Mar 30, 2024 08:24 AM Reporting Lab: [address] [address] Performing Lab: [facility] [address] [facility] [address] [facility] PANEL 1 CREATININE [MASS/VOLU ME] IN SERUM [...] <15 G5 Kidney failure Ordering Provider: LUAN APTEL Report Released Date/Time: Mar 30, 2024 08:24 AM Reporting Lab: [facility] [address] [facility] [address] Performing Lab: JO[facility] B[facility]OP [place] [id number] [facility] [address] [facility] PANEL 1 UREA NITROGEN [MASS/VOLU ME] IN [...] 30, 2024 08:24 AM Reporting Lab: JOANNA [address] [address] Performing Lab: [id number] [address] [facility] PANEL 1 GLUCOSE [MASS/VOLU ME] IN SERUM [...] Mar 30, 2024 08:24 AM Reporting Lab: [address] [address] Performing Lab: [address] [address] [facility] PANEL 1 SODIUM [MOLES/VOL UME] IN SERUM [...] 2024 08:24 AM Reporting Lab: JOANNA BISHOP [address] [address] Performing Lab: JOANNA BISHOP [address] [address] [facility] PANEL 1 POTASSIUM [MOLES/VOL UME] IN SERUM [...] 2024 08:24 AM Reporting Lab: JOANNA BISHOP [address] [address] Performing Lab: JOANNA IBSHOP [address] [address] [facility] PANEL 1 CHLORIDE [MOLES/VOL UME] IN SERUM [...] 2024 08:24 AM Reporting Lab: JOANNA BISHOP [address] [address] Performing Lab: JOANNA BISHOP [address] [address] [facility] PANEL 1 CARBON DIOXIDE, TOTAL [MOLES/VOL UME] IN SERUM OR PLASMA 23 mmol/L 04/09 Specimen Type: PLASMA Comment: Estimated Glomerular [...] 2024 08:24 AM Reporting Lab: JOANNA BISHOP [address] [address] Performing Lab: JOANNA BISHOP [address] [address] [facility] PANEL 1 CALCIUM [MASS/VOLU ME] IN SERUM [...] 2024 08:24 AM Reporting Lab: JOANNA BISHOP [address] [address] Performing Lab: JOANNA BISOHP [address] [address] [facility] PANEL 1 ANION GAP 3 IN SERUM [...] 2024 08:24 AM Reporting Lab: JO[facility]NA BISHOP [address] [address] Performing Lab: JOANNA BISHOP [address] [address] [facility] PANEL 1 GLOMERULAR FILTRATION RATE/1.73 SQ M.PREDICTE [...] 2024 08:24 AM Reporting Lab: JOANNA BISHOP [address] [address] Performing Lab: JOANNA BISHOP [address] [address] [facility] CBC/PLT LEUKOCYTES [#/VOLUME] IN BLOOD BY AUTOMATED COUNT 11.0 10*3/uL 5.0 - 10.0 12/29 H Specimen Type: BLOOD No comment entered. Ordering Provider: LUAN PATEL Report Released Date/Time: Dec 30, 2023 08:19 AM Reporting Lab: [place] [id number] Performing Lab: [address] CBC/PLT ERYTHROCYT ES [#/VOLUME] IN BLOOD BY AUTOMATED COUNT 5.12 10*6/uL 4.6 - 6.2 12/29 Specimen Type: BLOOD No comment entered. Ordering Provider: LUAN PATEL Report Released Date/Time: Dec 30, 2023 08:19 AM Reporting Lab: [place] [address] Performing Lab: [address] CBC/PLT HEMOGLOBIN [MASS/VOLU ME] IN BLOOD 14.4 g/dL 14.0 - 18.0 12/29 Specimen Type: BLOOD No comment entered. Ordering Provider: LUAN PATEL Report Released Date/Time: Dec 30, 2023 08:19 AM Reporting Lab: [place] [address] Performing Lab: [address] CBC/PLT HEMATOCRIT [VOLUME FRACTION] OF BLOOD BY AUTOMATED COUNT 45.0 42.0 - 52.0 12/29 Specimen Type: BLOOD No comment entered. Ordering Provider: LUAN PATEL Report Released Date/Time: Dec 30, 2023 08:19 AM Reporting Lab: [place] [address] Performing Lab: [address] CBC/PLT MCV [ENTITIC VOLUME] BY AUTOMATED COUNT 87.9 fL 80.0 - 94.0 12/29 Specimen Type: BLOOD No comment entered. Ordering Provider: LUAN PATEL Report Released Date/Time: Dec 30, 2023 08:19 AM Reporting Lab: [address] [address] Performing Lab: [address] [phone] [place] [address] CBC/PLT MCH [ENTITIC MASS] BY AUTOMATED COUNT 28.1 pg 27.0 - 31.0 12/29 Specimen Type: BLOOD No comment entered. Ordering Provider: LUAN PATEL Report Released Date/Time: Dec 30, 2023 08:19 AM Reporting Lab: [place] [phone] Performing Lab: [place] [phone] [place] [address] CBC/PLT MCHC [MASS/VOLU ME] BY AUTOMATED COUNT 32.0 g/dL 32.0 - 36.0 12/29 Specimen Type: BLOOD No comment entered. Ordering Provider: LUAN PATEL Report Released Date/Time: Dec 30, 2023 08:19 AM Reporting Lab: [place] [phone] Performing Lab: [place] [id number] [place] [address] CBC/PLT PLATELETS [#/VOLUME] IN BLOOD 221 10*3/uL 150 - 450 12/29 Specimen Type: BLOOD No comment entered. Ordering Provider: LUAN PATEL Report Released Date/Time: Dec 30, 2023 08:19 AM Reporting Lab: [place] [phone] Performing Lab: [address] [phone] [place] [address] CBC/PLT PLATELET MEAN VOLUME [ENTITIC VOLUME] IN BLOOD 11.1 fL 9.0 - 13.1 12/29 Specimen Type: BLOOD No comment entered. Ordering Provider: LUAN PATEL Report Released Date/Time: Dec 30, 2023 08:19 AM Reporting Lab: [address] [address] Performing Lab: [place] [id number] CBC/PLT ERYTHROCYT E DISTRIBUTI ON WIDTH [ENTITIC VOLUME] BY AUTOMATED COUNT 12.7 11.0 - 16.0 12/29 Specimen Type: BLOOD No comment entered. Ordering Provider: LUAN PATEL Report Released Date/Time: Dec 30, 2023 08:19 AM Reporting Lab: [place] [address] Performing Lab: [address] CBC/PLT NUCLEATED ERYTHROCYT ES/100 ERYTHROCYT ES IN BLOOD 0.0 0.0 - 0.0 12/29 Specimen Type: BLOOD No comment entered. Ordering Provider: LUAN PATEL Report Released Date/Time: Dec 30, 2023 08:19 AM Reporting Lab: [place] [address] Performing Lab: [address] GLYCOHEM OGLOBIN HEMOGLOBIN A1C/HEMOGL OBIN.TOTAL IN BLOOD BY HPLC 9.1 4.4 - 6.4 12/29 H Specimen Type: BLOOD Comment: [facility] guidelines for A1c interpretat ion: Glycemic control targets are based on Shared Decision Making between clinicians and patients. Criteria used to establish an A1c target recommendat ion can be found at https://www .[place].gov/daniel lityandpati entsafety/ and include the use of [...] 9.27. Ref: https://ngs p.org/CAPda ta.asp. The in-house FastConnect-KnoCo D-100 analyzer has a historical CV <= 2%. Contact the laboratory for further performance characteris tics of this assay. Ordering Provider: AMANDA,KIP TON L Report Released Date/Time: Dec 30, 2023 08:19 AM Reporting Lab: [facility] [address] [facility] [address] Performing Lab: JOANNA BISHOP [address] [address] [facility] LIPID PROFILE CHOLESTERO L [MASS/VOLU ME] IN [...] 2023 08:19 AM Reporting Lab: [facility] BISHOP [address] [address] Performing Lab: JOANNA BISHOP [address] [address] [facility] LIPID PROFILE TRIGLYCERI DE [MASS/VOLU ME] IN [...] Dec 30, 2023 08:19 AM Reporting Lab: [facility] [address] [address] Performing Lab: [address] [address] [facility] LIPID PROFILE CHOLESTERO L IN HDL [MASS/VOLU [...] 2023 08:19 AM Reporting Lab: JOANNA BISHOP [address] [address] Performing Lab: JOANNA BISHOP [address] [address] [facility] LIPID PROFILE CHOLESTERO L IN LDL [MASS/VOLU [...] Dec 30, 2023 08:19 AM Reporting Lab: [place] [id number] Performing Lab: [address] MICROALB UMIN/CRE AT RATIO CREATININE [MASS/VOLU ME] IN URINE 79.2 mg/dL 12/29 Specimen Type: URINE No comment entered. Ordering Provider: LUAN PATEL Report Released Date/Time: Dec 30, 2023 08:19 AM Reporting Lab: [place] [id number] Performing Lab: [place] [id number] [place] [address] MICROALB UMIN/CRE AT RATIO MICROALBUM IN [MASS/VOLU ME] IN URINE 174.5 mg/L 0.0 - 30.0 12/29 H Specimen Type: URINE No comment entered. Ordering Provider: LUAN PATEL Report Released Date/Time: Dec 30, 2023 08:19 AM Reporting Lab: [place] [id number] Performing Lab: [place] [id number] [place] [address] MICROALB UMIN/CRE AT RATIO MICROALBUM IN/CREATIN INE [MASS RATIO] IN URINE 220.3 ug/mg{cr eat} 12/29 Specimen Type: URINE No comment entered. Ordering Provider: LUAN PATEL Report Released Date/Time: Dec 30, 2023 08:19 AM Reporting Lab: [facility] BISHOP [address] [address] Performing Lab: JOANNA B[facility]OP [address] [address] [facility] PANEL 5 CREATININE [MASS/VOLU ME] IN SERUM [...] Dec 30, 2023 08:19 AM Reporting Lab: [facility] [address] [address] Performing Lab: [id number] [address] [facility] PANEL 5 UREA NITROGEN [MASS/VOLU ME] IN [...] 2023 08:19 AM Reporting Lab: JOANNA BISHOP [address] [address] Performing Lab: JOANNA [address] [address] [facility] PANEL 5 GLUCOSE [MASS/VOLU ME] IN SERUM [...] 2023 08:19 AM Reporting Lab: JOANNA BISHOP [address] [address] Performing Lab: JOANNA BISHOP [address] [address] [facility] PANEL 5 SODIUM [MOLES/VOL UME] IN SERUM [...] 2023 08:19 AM Reporting Lab: JOANNA B[facility]OP [address] [address] Performing Lab: JOANNA BISHOP [address] [address] [facility] 5 POTASSIUM [MOLES/VOL UME] IN SERUM OR [...] 2023 08:19 AM Reporting Lab: JOANNA BISHOP [address] [address] Performing Lab: JOANNA BISHOP [address] [address] [facility] PANEL 5 CHLORIDE [MOLES/VOL UME] IN SERUM [...] 2023 08:19 AM Reporting Lab: JOANNA BISHOP [address] [address] Performing Lab: JOANNA BISHOP [address] [address] [facility] PANEL 5 CARBON DIOXIDE, TOTAL [MOLES/VOL UME] IN SERUM OR PLASMA 25 mmol/L - 12/29 Specimen Type: PLASMA Comment: Estimated Glomerular [...] 2023 08:19 AM Reporting Lab: JOANNA BISHOP [address] [address] Performing Lab: JOANNA BISHOP [address] [address] [facility] PANEL 5 CALCIUM [MASS/VOLU ME] IN SERUM [...] 2023 08:19 AM Reporting Lab: JOANNA BISHOP [address] [address] Performing Lab: JOANNA BISHOP [address] [address] [facility] PANEL 5 PROTEIN [MASS/VOLU ME] IN SERUM [...] 2023 08:19 AM Reporting Lab: JOANNA BISHOP [address] [address] Performing Lab: JOANNA BISHOP [address] [address] [facility] PANEL 5 ALBUMIN [MASS/VOLU ME] IN SERUM [...] 2023 08:19 AM Reporting Lab: JOANNA BISHOP [address] [address] Performing Lab: JOANNA BISHOP [address] [address] [facility] PANEL 5 BILIRUBIN. TOTAL [MASS/VOLU ME] IN [...] 2023 08:19 AM Reporting Lab: JOANNA BISHOP [address] [address] Performing Lab: JOANNA BISHOP [address] [address] [facility] PANEL 5 ASPARTATE AMINOTRANS FERASE [ENZYMATIC ACTIVITY/V [...] Dec 30, 2023 08:19 AM Reporting Lab: NOEL[facility]leighStacey [address] [address] Performing Lab: JOANNA [address] [address] [facility] PANEL 5 ALANINE AMINOTRANS FERASE [ENZYMATIC ACTIVITY/V [...] Dec 30, 2023 08:19 AM Reporting Lab: [address] [address] Performing Lab: [address] [address] [facility] PANEL 5 ANION GAP 3 IN SERUM [...] 2023 08:19 AM Reporting Lab: JOANNA BISHOP [address] [address] Performing Lab: JOANNA BISHOP [address] [address] [facility] PANEL 5 ALKALINE PHOSPHATAS E [ENZYMATIC ACTIVITY/V [...] 2023 08:19 AM Reporting Lab: JOANNA BISHOP [address] [address] Performing Lab: JOANNA BISHOP [address] [address] [facility] PANEL 5 GLOMERULAR FILTRATION RATE/1.73 SQ M.PREDICTE D [...] 30, 2023 08:19 AM Reporting Lab: JOANNA [address] [address] Performing Lab: JOANNA [address] [address] [facility] OCCULT BLOOD FIT X1 SCREEN HEMOGLOBIN .GASTROINT ESTINAL.LO WER [PRESENCE] IN STOOL BY IMMUNOASSA Y Negative 01/22 Specimen Type: FECES Comment: No Date or time of collection provided. Lab cannot attest to the validity of results with undated specimens or specimens over 14 days old. Suggest recollect. Ordering Provider: LUAN PATEL Report Released Date/Time: Jan 10, 2023 08:24 AM Reporting Lab: JOANNA [address] [address] Performing Lab: [id number] [address] [facility] Vital Signs Combined list of inpatient and outpatient Vital Signs from Department of Defense and Veterans Affairs, ranging from 12 months to all on record, depending upon the facility. Vital Sign Value Date Comments Source SYSTOLIC BLOOD PRESSURE 155 12/30[facility]2023 07[facility]54:[facility] DIA[facility] PRESSURE 86 12/30/2023 07:54:59 ELIS [facility] PULSE OXIMETRY 95 12/30/2023 07:54:59 L SHIVANI [facility] WEIGHT 296.4 12/30/2023 07:54:59 ELVA MARTINS [facility] BMI 38 kg/m2 12/30/2023 07:54:59 ELVA KRYS [facility] PAIN 0 12/30/2023 07:54:59 [facility] HEIGHT 74 12/30/2023 07:54:59 ELVA KRYS [facility] TEMPERATURE 97.4 12/30/2023 07:54:59 ALVARO PEGUERO [facility] PULSE 77 12/30/2023 07:54:59 ELVA MARTINS [facility] RESPIRATION 18 12/30/2023 07:54:59 ALVARO PEGUERO [facility] Encounters Combined list of: 1) Encounters from Department of Veterans Affairs facilities going backup to the last 18 months, not all [place] inpatient encounters are included; 2) Encounters from the Department of Defense facilities going backup to 280 months. Location Location Details Encounter Type Encounter Number Reason For Visit Attending Provider ADM Date DC Date Status Disposition Source [facility] OFFICE O/P EST MOD 30 MIN [id number] Diagnos is: ICD-10- CM E11.65 Type 2 diabete s mellitu s with hypergl ycemia DEMETRIA PATEL PTKRYS L 12/29 [place] [facility] Outpatient Encounter [id number] 12/29 [place] [facility] IMG RTA DETCJ/MNTR DS STAFF [id number] Diagnos is: ICD-10- CM Z13.5 Encount er for screeni ng for eye and ear disorde rs BRAVO,SOPHIA AN L 12/29 [place] [facility] UNLISTED OPH SVC/PROCED URE [id number] Diagnos is: ICD-10- CM Z13.9 Encount er for screeni ng, unspeci GABBY Draper 12/29 [facility] Outpatient Encounter [id number] 12/29 [place] [facility] Outpatient Encounter [id number] 01/11 [place] [facility] Outpatient Encounter [id number] 01/16 [place] HC PRO PHONE CALL 5-10 MIN [id number] Diagnos is: ICD-10- CM Z71.9 Quality Review Trainer ing, unspeci ANTHONY Schulz F 01/17 [facility] COMPRE OPH EXAM NEW PT 1/> [id number] Diagnos is: ICD-10- CM E11.339 1 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, r eye SHERITA,PHI LLIP K 03/29 [place] [facility] COMPRE OPH EXAM EST PT 1/> [id number] Diagnos is: ICD-10- CM E11.339 2 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, l eye SHERITA,PHI LLIP K 09/27 [place] [facility] Social History Combined list of available smoking, tobacco, and other social history from Department of Defense and [facility] Affairs facilities. Social History Type Response Date Comment Sour e Tobacco smoking status NHIS [place]-TOBACCO FORMER USER 12/30/2023 [facility] History of tobacco use [place]-TOBACCO QUIT 1 5 YRS OR MORE 12/30/2023 [facility] History of tobacco use ND-TOBACCO FORMER USER 01/10/2023 [facility] History of tobacco use ND-TOBACCO QUIT 1 5 YRS OR MORE 01/18/2022 [facility] History of tobacco use ND-TOBACCO QUIT 1 5 YRS OR MORE 01/28/2021 [facility] History of tobacco use ND-TOBACCO FORMER USER 02/11/2020 [facility] History of tobacco use ND-TOBACCO QUIT 1 5 YRS OR MORE 03/01/2019 [facility] History of tobacco use ND-TOBACCO FORMER USER 03/03/2018 [facility] History of tobacco use V9 QUIT TOBACCO > 7 YEARS AGO 09/03/2016 [facility] History of tobacco use V9 QUIT TOBACCO > 7 YEARS AGO 03/21/2014 [facility] History of tobacco use V9 QUIT TOBACCO > 12 MO and <7 YRS AGO 05/30/2013 [facility] History of tobacco use V9 QUIT TOBACCO > 12 MO and <7 YRS AGO 08/02/2012 [facility] History of tobacco use V9 QUIT TOBACCO > 12 MO and <7 YRS AGO 04/14/2011 [facility] History of tobacco use V9 QUIT TOBACCO I N THE LAST 12 MONTHS 06/23/2010 [facility] History of tobacco use V9 CURRENT TOBACCO USER 07/24/2009 [facility] History of tobacco use V9 CURRENT TOBACCO USER 01/21/2009 [facility] History of tobacco use V9 CURRENT TOBACCO USER 07/19/2008 [facility]
[2024-10-18] VITALS (13 sets, daily range): BP systolic 79–140; BP diastolic 48–82; PULSE 51–82; RESP 11–20; TEMP 36.5–37.2; O2SAT 79–97; BMI 36.2; BMI 36.6
--- NOTE | 2024-10-18 10:16 | ECG_ITS ---
APPROVED REPORT Exam: Resting ECG HR:60 bpm ECG Measurements Heart Rate 60 AXES GA 180 P -7 QRSd 97 QRS 45 QT 406 T 66 QTc 407 Conclusion SINUS RHYTHM NORMAL ECG UNCONFIRMED REPORT Electronically signed by : DIOGO MONSIVAIS, 10/19/2024 00:37:08
--- OUTSIDE RECORDS SUMMARY | 2024-10-18 10:31 | XMS_ITS | Clinical Summary ---
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 Pt states he takes 1 tab daily Indications: type 2 diabetes mellitus Active atenolol (TENORMIN) 100 mg Oral Tablet Take by mouth daily. Active AMLODIPINE BESYLATE, BULK, MISC 10 mg by Misc.(Non-Drug; Combo Route) route daily. Active cloNIDine HCl (CATAPRES) 0.2 mg Oral Tablet Take 0.2 mg by mouth daily. Active glyBURIDE (DIABETA) 5 mg Oral Tablet Take 10 mg by mouth 2 times daily (with meals). Active hydrochlorothia zide (HYDRODIURIL) 25 mg Oral Tablet Take 25 mg by mouth daily. Active metFORMIN (GLUCOPHAGE) 1,000 mg Oral Tablet Take 1,000 mg by mouth 2 times daily (with meals). Active pioglitazone (ACTOS) 45 mg Oral Tablet Take 45 mg by mouth. Active polyethylene glycol (GLYCOLAX, MIRALAX) 17 gram Oral Powder in Packet Take by mouth 2 times daily. Active lisinopril (PRINIVIL;ZESTR IL) 40 mg Oral Tablet Take 40 mg by mouth every morning. Takes 2 20mg tabs Active insulin glargine U-100 (LANTUS) 100 unit/mL SubQ Solution Subcutaneous (Inject under the skin) 60 Units nightly. Active spironolactone (ALDACTONE) 25 mg Oral Tablet Take by mouth daily. Active glimepiride (AMARYL) 4 mg Oral Tablet Take 4 mg by mouth every morning (before breakfast). Active dapagliflozin (FARXIGA) 10 mg Oral Tablet Take by mouth daily. Active ascorbic acid, vitamin C, (VITAMIN C) 1,000 mg Oral Tablet Take 1,000 mg by mouth daily. Active VITAMIN B COMPLEX ORAL Take by mouth daily. Active Potassium 99 mg Oral Tablet Take by mouth daily. Active loratadine (CLARITIN) 10 mg Oral Tablet Take 10 mg by mouth daily. Active MULTIVITAMIN ORAL Take by mouth daily. Active acetaminophen (TYLENOL) 500 mg Oral Tablet Take 2 Tabs by mouth every 8 hours as needed. 60 Tab 9 Active aspirin 325 mg Oral Tablet, Delayed Release (E.C.) Take 1 Tab by mouth 2 times daily. 56 Tab 08/10/2018 1:15 PM EDT 9 Active tiZANidine (ZANAFLEX) 2 mg Oral Tablet Take 2 Tabs by mouth every 8 hours as needed for Other (muscle relaxant). 60 Tab 08/10/2018 1:15 PM EDT 9 Active traMADol (ULTRAM) 50 mg Oral Tablet Take 1-2 Tabs by mouth every 8 hours as needed for Pain (1-5 moderate pain or breakthrough). 60 Tab 9 Active Additional Information Patient not taking.Reason: Pt electing to not take the medication, Reported on 01/26/2021 oxyCODONE (ROXICODONE) 5 mg Oral Tablet Take 1-2 Tabs by mouth every 8 hours as needed for Major Surgery/Trauma (G89.18) (moderate/severe 6-10 pain). 60 Tab 9 Active Additional Information Patient not taking.Reason: Pt electing to not take the medication, Reported on 01/26/2021 Active Problems Problem Noted Date Diagnosed Date Osteoarthritis of right knee 08/09/2018 Primary osteoarthritis of left knee 05/27/2015 Essential hypertension 05/27/2015 Type 2 diabetes mellitus without complication Post-operative state 05/27/2015 Surgical History Surgery Date Site/Laterality Comments TOTAL KNEE ARTHROPLASTY 05/26/2015 Left LEFT TOTAL KNEE REPLACEMENT ; Surgeon: Brian Mcmanus MD; Location: [facility]; Service: Orthopedics Medical devices from this surgery are in the Medical Devices section. TOTAL KNEE ARTHROPLASTY 08/08/2018 Right RIGHT TOTAL KNEE REPLACEMENT; Surgeon: Brian Mcmanus MD; Location: [facility]; Service: Orthopedics Medical devices from this surgery are in the Medical Devices section. Medical History Medical History Date Comments Hypertension Arthritis Diabetes mellitus (HCC) Urinary tract infection 07/17/2018 treated Family History Medical History Relation Name Comments Anesth Problems Neg Hx Social History Tobacco Use Types Packs/Day Years [...] on file Sexual Orientation Not on file Obstetrics History Last Filed Vital Signs Vital Sign Reading Time Taken Comments Blood Pressure 114/68 08/10/2018 8:10 AM EDT Pulse 65 08/10/2018 8:10 AM EDT Temperature 36.7 C (98 F) 08/10/2018 8:10 AM EDT Respiratory Rate 16 08/10/2018 8:10 AM EDT Oxygen Saturation 99% 08/10/2018 8:10 AM EDT Inhaled Oxygen Concentration - - Weight 127 kg (280 lb) 02/09/2021 3:08 PM EST Height 188 cm (6' 2 ) 02/09/2021 3:08 PM EST Body Mass Index 35.95 02/09/2021 3:08 PM EST Plan of Treatment Health Maintenance Due Date Last Done Comments Wellness Exam Medicare 08/30/1950 Lipids 08/30/1957 Diabetic Eye Exam 08/30/1965 Hemoglobin A1c 08/30/1965 Hepatitis C Screening 08/30/1965 Kidney Health: uACR 08/30/1965 Kidney Health: eGFR 05/18/2016 05/19/2015 RSV or 60+ (1 - 1-dose 75+ series) 08/30/2022 COVID-19 Vaccine ( season) 2023 01/23/2021, 05/16/2020, 04/18/2020 Influenza Vaccine (#1) 2024 , 12/11/2020, 12/06/2019, Additional history exists DTaP/TDaP/Td (4 - Td or Tdap) 10/05/2026 10/05/2016, 03/21/2014, 03/21/2014, Additional history exists Pneumococcal Vaccine 50+ Completed 06/03/2017, 05/2014 Zoster Completed 04/28/2018, 01/06, 09/24/2016 Hepatitis B Vaccine Aged Out No longe r eligible based on patient's age to complete this topic Meningococcal B Vaccine Aged Out No l onger eligible based on patient's age to complete this topic Medical Devices Implanted Type Area Lead Systems Developer Device Identifier Shelf Expiration Date Model / Serial / Lot Baseplate Tibial Tritanium Triathlon Size 7 - [id number] Implanted:Qty: 1 on 05/26/2015 by Brian Mcmanus MD at [facility] Left: Knee CHUCHO:ORTHOPEDI CS 05/04/2020 5536-B-700 / / [id number] Component Femoral Stabilized Posterior Triathlon #6 Left - [id number] Implanted:Qty: 1 on 05/26/2015 by Brian Mcmanus MD at [facility] Left: Knee [employer]UCHO:ORTHOPEDI CS 05/12/2020 [id number] / / [id number] Patella Backed Metal Tritanium Asymmetric A 40 X 11 - [id number] Implanted:Qty: 1 on 05/26/2015 by Brian Mcmanus MD at [facility] Left: Knee [employer]UCHO:ORTHOPEDI CS 04/28/2020 [id number] / / [id number] Insert Bearing Tibial X3 Triathlon Ps Size 7-9mm - [id number] Implanted:Qty: 1 on 05/26/2015 by Brian Mcmanus MD at [facility] Left: Knee [employer]UCHO:ORTHOPEDI CS 04/06/2020 [id number] / / [id number] Cmpnt Fem 6 Kn Rt Post Stab Bead Trthln Pa - [id number] Implanted:Qty: 1 on 08/08/2018 by Brian Mcmanus MD at [facility] Right: Knee [employer]UCHO:ORTHOPEDI 11/21/2022 [id number] / / [id number] Patella Backed Metal Tritanium Asymmetric A 40 X 11 - [id number] Implanted:Qty: 1 on 08/08/2018 by Brian Mcmanus MD at [facility] Right: Knee [employer]UCHO:ORTHOPEDI 01/18/2023 [id number] / / [id number] Bsplt Tib Trthln 7 Kn Tritanium - [id number] Implanted:Qty: 1 on 08/08/2018 by Brian Mcmanus MD at [facility] Right: Knee [employer]UCHO:ORTHOPEDI 03/14/2023 [id number]-B-[id number] / / [id number] Ins Tib 7 9mm Kn X3 Post Stab Brng Trthln - [id number] Implanted:Qty: 1 on 08/08/2018 by Brian Mcmanus MD at [facility] Right: Knee [employer]UCHO:ORTHOPEDI 05/13/2020 [id number] / / [id number] Procedures Procedure Name Priority Date/Time Associated Diagnosis Comments BASIC METABOLIC PANEL Routine 05/19/2015 8:14 AM EDT Preop testing Primary osteoarthritis of left knee from Last 3 Months or Most Recently Relevant to Health Maintenance Results * (ABNORMAL) BASIC METABOLIC PANEL (05/19/2015 8:14 AM EDT) [facility] Signature Sodium 139 136 - 145 mmol/L [facility] Potassium 4.5 3.5 - 5.0 mmol/L [facility] Chloride 100 98 - 107 mmol/L [facility] Total CO2 24 22 - 29 mmol/L [facility] Anion Gap 15 7 - 16 mmol/L [facility] Calcium 9.2 8.8 - 10.2 mg/dL [facility] Glucose Lvl 267(H) 82 - 100 mg/dL [facility] BUN 19 8 - 23 mg/dL [facility] Creatinine 0.86 0.67 - 1.30 mg/dL [facility] GFR Afr Am >60 [facility] GFR Non Afr Am >60 [facility] Blood specimen (specimen) UPPER LIMB STRUCTURE / Unknown 05/19/2015 8:14 AM EDT 05/19/2015 8:40 AM EDT Hollie Boss ENGINEERING TECHNOLOGIST CHEMISTRY ORDERABLES Edited R esult - Final [facility] [address] [place] [address] from Last 3 Months or Most Recently Relevant to Health Maintenance [place] [address] [place] [address] MEDICARE SUPPLEMENT MEDICARE [place] PART A AND B MEDICARE SUPPLEMENT MEDICARE [place] PART A [place] B Advance Directives For more information, please contact: [phone] Documents on File Type Date Recorded Patient Tap Dancer Expl anation ADVANCE DIRECTIVE 08/08/2018 12:23 PM Advance Directives/DNR 05/26/2015 8:52 AM May 26 2015 12:51:51:266 GMT * Full Code (Latest Code Status on File) Date Activated Date Inactivated Comments 08/08/2018 6:29 PM 08/10/2018 6:26 PM * Full Code Date Activated Date Inactivated Comments 05/26/2015 2:31 PM 05/29/2015 6:04 PM Care Teams Motorcycle Assembler Relationship Specialty Start Date End Date Ariel Villaseñor MD [address] [place] [id number] PCP - General Internal Medicine 05/16/15
[2024-10-18 10:35] LABS: Hematocrit 46.8 % (42.0-52.0); Hemoglobin 15.5 g/dL (14.1-18.0); Immature Granulocytes % 0.4 %; Mean Corpuscular HGB Conc 33.1 g/dL (31.8-35.4); Mean Corpuscular Hemoglobin 28.8 pg (27.0-31.2); Mean Corpuscular Volume 86.8 fl (80-94); Nucleated Red Blood Cells % 0 %; Platelet Count 208 K/mm3 (142-424); Red Blood Count 5.39 M/mm3 (4.60-6.20); Red Cell Distribution Width-SD 41.1 fL; White Blood Count 8.3 K/mm3 (4.8-10.8)
[2024-10-18 10:40] LABS: Albumin Level 4.4 g/dl (3.5-5.0); Chloride 102 mmol/L (98-107); Potassium 5.0 mmoL/L (3.5-5.1); Sodium 138 mmol/L (136-145)
[2024-10-18 10:42] LABS: Blood Urea Nitrogen 31 mg/dl (9-20); Creatinine Clearance Estimated 68 mL/min (50-200); Creatinine,Serum 1.70 mg/dl (0.66-1.25); Estimated Glomerular Filt Rate 39 ml/min (>60); GFR (African American) 48 ML/MIN (>60)
--- NOTE | 2024-10-18 10:42 | XR_ITS ---
FINAL REPORT CLINICAL HISTORY: Shortness of breath COMPARISON: 05/06/2023 FINDINGS: A portable view of the chest was obtained. Cardiac and mediastinal silhouettes are within normal limits. The lungs are clear. There is no pleural effusion or pneumothorax. IMPRESSION: No acute process on this portable exam. Reviewed, Interpreted and Dictated by Jelly Santana MD Transcribed by Gege Patino Authenticated and [facility]
[2024-10-18 10:43] LABS: Alanine Aminotransferase 32 U/L (12-78); Albumin/Globulin Ratio 1.4 (1.1-1.8); Alkaline Phosphatase 96 U/L (38-126); Anion Gap 13.0 mEq/L (5-15); Aspartate Amino Transferase 32 U/L (17-59); Bilirubin,Total 0.6 mg/dl (0.2-1.3); Calcium 9.2 mg/dl (8.4-10.2); Carbon Dioxide 28 mmol/L (22.0-30.0); Globulin 3.2 g/dL (1.3-3.2); Glucose 173 mg/dl (74-100); Total Protein,Serum 7.6 g/dl (6.3-8.2)
--- NOTE | 2024-10-18 10:43 | HMH.EDGENADL ---
Discharge Plan Disposition Patient Disposition: Admitted Prescriptions Prescriptions: No Action insulin glargine [Lantus U-100 Insulin] 100 unit/mL solution 60 unit SQ DAILY vitamin B complex [B Complex-Vitamin B12] Tablet 1 tab PO DAILY magnesium oxide 250 mg magnesium tablet 250 mg PO DAILY hydrocortisone [Cortizone-10] 1 % cream 1 applic topical BID PRN (Reason: skin irritation) Qty: 28.4 1RF cyclobenzaprine 5 mg tablet 5 mg PO BID PRN (Reason: muscle spasm) Qty: 30 0RF duloxetine 60 mg capsule,delayed release(DR/EC) 60 mg PO QHS Qty: 90 3RF hydrochlorothiazide 25 mg tablet 25 mg PO DAILY Qty: 90 1RF spironolactone 25 mg tablet 25 mg PO DAILY Qty: 90 1RF metformin 1,000 mg tablet See Rx Instructions .ROUTE .COMPLEX Qty: 180 1RF Dose Instruction: TAKE 1 TABLET TWICE DAILY WITH MEALS Rx Instructions: TAKE 1 TABLET TWICE DAILY WITH MEALS lisinopril 40 mg tablet See Rx Instructions .ROUTE .COMPLEX Qty: 180 1RF Dose Instruction: TAKE 1 TABLET TWICE DAILY Rx Instructions: TAKE 1 TABLET TWICE DAILY atorvastatin 10 mg tablet See Rx Instructions .ROUTE .COMPLEX Qty: 90 1RF Dose Instruction: TAKE 1 TABLET EVERY DAY Rx Instructions: TAKE 1 TABLET EVERY DAY amlodipine 10 mg tablet See Rx Instructions .ROUTE .COMPLEX Qty: 90 1RF Dose Instruction: TAKE 1 TABLET EVERY DAY Rx Instructions: TAKE 1 TABLET EVERY DAY atenolol 100 mg tablet See Rx Instructions .ROUTE .COMPLEX Qty: 90 1RF Dose Instruction: TAKE 1 TABLET EVERY DAY Rx Instructions: TAKE 1 TABLET EVERY DAY clonidine HCl 0.2 mg tablet See Rx Instructions .ROUTE .COMPLEX Qty: 90 1RF Dose Instruction: TAKE 1 TABLET EVERY DAY Rx Instructions: TAKE 1 TABLET EVERY DAY Referrals Follow up/Referrals: Provider,Referral, [Referring, Medical] - See instructions Clinical Impressions Clinical Impression: Malaise, Hypotension Print Language Print Language: French Discharge ED Provider: Kristan Petty General Adult HPI General Chief complaint: Recheck/Abnormal Lab/Rx Stated complaint: Abnormal labs Time Seen by Provider: 10/18/24 10:32 Mode of Arrival: Ambulatory Source of Information: Patient Description of Symptoms (Recalled from ER Triage Doc. by RN): pt is here for abnormal ekg and being nasueated this morning, pt is alox4 denies any chest or abd pain, soa, or dizziness. pt thinks the jardiance he got placed on 10 days ago is making him sick History of Present Illness HPI narrative: Patient is a 79-year-old male presenting today with generalized malaise. Woke up this morning states he just felt off had some nausea and just felt sick. Started Jardiance few days ago and feels that that may be what is causing his symptoms. No fevers or chills no focal symptoms such as sore throat chest pain back pain cough urinary symptoms etc. Was at [facility]'s office and had significant diaphoresis had an EKG that was concerning for an inferior STEMI EKG was transmitted to our contract post office clerk who gave me a call and give a heads up about the patient's case. Patient's symptoms have since resolved other than some generalized malaise specifically his diaphoresis is gone he states he feels better. Does have a history of hypertension and was hypotensive at you on his office. Related Data Home Medications ?Medication ?Instructions ?Recorded ?Confirmed insulin glargine 100 unit/mL 60 unit SQ DAILY 03/09/22 06/20/24 subcutaneous solution (Lantus U-100 Insulin) magnesium oxide 250 mg PO DAILY 03/09/22 06/20/24 vitamin B complex (B 1 tab PO DAILY 04/13/22 06/20/24 Complex-Vitamin B12 tablet) Previous Rx's ?Medication ?Instructions ?Recorded duloxetine 60 mg capsule,delayed 60 mg PO QHS neuropathy #90 caps 05/27/22 release hydrocortisone 1 % topical cream 1 applic topical BID PRN skin 12/20/23 (Cortizone-10) irritation #28.4 grams cyclobenzaprine 5 mg tablet 5 mg PO BID PRN muscle spasm #30 02/09/24 tabs hydrochlorothiazide 25 mg tablet 25 mg PO DAILY blood pressure #90 05/28/24 tabs spironolactone 25 mg tablet 25 mg PO DAILY Fluid #90 tabs 07/09/24 amlodipine 10 mg tablet See Rx Instructions .Route 07/13/24 .COMPLEX #90 tabs atenolol 100 mg tablet See Rx Instructions .Route 07/13/24 .COMPLEX #90 tabs atorvastatin 10 mg tablet See Rx Instructions .Route 07/13/24 .COMPLEX #90 tabs clonidine HCl 0.2 mg tablet See Rx Instructions .Route 07/13/24 .COMPLEX #90 tabs lisinopril 40 mg tablet See Rx Instructions .Route 07/13/24 .COMPLEX #180 tabs metformin 1,000 mg tablet See Rx Instructions .Route 07/13/24 .COMPLEX #180 tabs Allergies Allergy/AdvReac Type Severity Reaction Status Date / Time No Known Allergies Allergy Verified 06/20/24 08:28 [facility] Disclaimer: The information contained in this section may have been updated after the patient was seen, as this information can be updated by other users. Medical History Neuropathy B12 deficiency Type 2 diabetes mellitus with obesity A1C improving with healthy diet, weight loss. 8.8% 10/20/23 Surgical History History of bilateral knee replacement Family History Other Alcoholism Coronary artery disease Diabetes Heart attack Hypertension Social History Smoking Status: Never smoker alcohol intake: former substance use type: denies use current occupational status: retired Travel in the last 8 weeks?: None household members: spouse housing: house marital status: caffeine: No Have you lived/traveled outside US in past 30 days?: No Contact w/someone who lives/traveled outside US past 30 days?: No Exposure to someone with infectious disease in past 14 days?: No Do you have a fever (greater than 100.4 F or 38 C)?: No Have you tested positive for COVID-19?: No Exposed to someone with COVID-19 in past 14 days?: No Do you have a sore throat?: No Do you have a cough?: No Do you have any weakness?: No Do you have any diarrhea?: No Are you experiencing any unusual bleeding?: No Do you have any muscle aches/pain?: No Do you have any abdominal pain?: No Are you experiencing loss of taste or smell?: No Other Medical History Have you received the Pneumonia Vaccine: Yes ROS Obtained: Yes All systems reviewed & no additional complaints except as documented Physical Exam General General appearance: alert and in no apparent distress Respiratory Respiratory exam: Present normal lung sounds bilaterally Cardiovascular Cardiovascular exam: Present regular rate Neurological Exam Neurological exam: Present alert and oriented X3 Medical Decision Making Medical Records Screening: Per USPSTF and CDC recommendations, given the prevalence of disease in our region, it is our hospital?s policy to screen for HIV and viral Hepatitis for all patients aged 18 and over and those with ongoing risk factors. Angelito Inquiry Pt receiving controlled substance: No Vital Signs: 10/18/24 10:22 10/18/24 10:23 10/18/24 10:31 Temperature 98.4 F Temperature Source Oral Pulse Rate 61 60 Pulse Rate [Left Radial] 59 L Respiratory Rate 14 14 11 L Blood Pressure 123/61 92/58 L Blood Pressure [Right Arm] 123/61 Blood Pressure Mean [Right Arm] 81 02 Sat by Pulse Oximetry 97 95 93 L Oxygen Delivery Method Room Air 10/18/24 11:00 Temperature Temperature Source Pulse Rate 58 L Pulse Rate [Left Radial] Respiratory Rate 13 Blood Pressure 79/48 L Blood Pressure [Right Arm] Blood Pressure Mean [Right Arm] 02 Sat by Pulse Oximetry 93 L Oxygen Delivery Method Lab Data Lab Results 10/18/24 10:20: WBC 8.3, RBC 5.39, Hgb 15.5, Hct 46.8, MCV 86.8, MCH 28.8, MCHC 33.1, RDW 13.2, Plt Count 208, MPV 10.4, Neut % (Auto) 73.7, Lymph % (Auto) 14.4, [place] % (Auto) 9.4 H, Eos % (Auto) 1.0, Baso % (Auto) 1.1, Neut # (Auto) 6.1, Lymph # (Auto) 1.2, [place] # (Auto) 0.8, Eos # (Auto) 0.1, Baso # (Auto) 0.1, Sodium 138, Potassium 5.0, Chloride 102, Carbon Dioxide 28, Anion Gap 13.0, BUN 31 H, Creatinine 1.70 H, Estimated Creat Clear 68, Estimated GFR 39 L, Est GFR ( Amer) 48 L, Glucose 173 H, Calcium 9.2, Phosphorus 4.5, Magnesium 2.1, Total Bilirubin 0.6, AST 32, ALT 32, Alkaline Phosphatase 96, Troponin I < 0.01, NT-Pro-B Natriuret Pep 349, Total Protein 7.6, Albumin 4.4, Globulin 3.2, Albumin/Globulin Ratio 1.4 10/18/24 10:46: SARS-CoV-2 (PCR) Not detected, Influenza A Untype (PCR) Not detected, Influenza Type B (PCR) Not detected 10/18/24 11:50: Urine Color Yellow, Urine Appearance Clear, Urine pH 6.0, Ur Specific [place] 1.015, Urine Protein Trace, Urine Glucose (UA) 3+, Urine Ketones Trace, Urine Blood Negative, Urine Nitrate Negative, Urine Bilirubin Negative, Urine Urobilinogen 0.2, Ur Leukocyte Esterase Negative, Urine RBC None, Urine WBC Occasional, Ur Squamous Epith Cells Occasional, Urine Bacteria Trace 10/18/24 10:20 10/18/24 10:20 Orders (Tests/Meds): ED MEDICATIONS Discontinued Medications Generic Name Dose Route Start Last Admin Trade Name Freq PRN Reason Stop Dose Admin Lactated Ringer's 1,000 mls @ 999 mls/hr 10/18/24 10:45 10/18/24 10:53 Lactated Ringer's 1000 Ml Bag IV 10/18/24 11:45 999 mls/hr .Q1H1M LACI Administration ORDERS Category Date Time Status CXR --portable [XR chest portable] Stat Exams 10/18/24 10:42 Completed BNP [NT Pro Brain Natriuretic Pep.] Stat Lab 10/18/24 10:20 Completed Complete Blood Count Auto Diff Stat Lab 10/18/24 10:20 Completed Comprehensive Metabolic Panel Stat Lab 10/18/24 10:20 Completed Magnesium Stat Lab 10/18/24 10:20 Completed Phosphorous Stat Lab 10/18/24 10:20 Completed Rapid PCR Covid and Flu A/B Stat Lab 10/18/24 10:46 Completed Troponin I Q3H Lab 10/18/24 13:45 Ordered Troponin I Q3H Lab 10/18/24 16:45 Ordered Troponin I Stat Lab 10/18/24 10:20 Completed UA [Urinalysis and Microscopic] Stat Lab 10/18/24 11:50 Completed ECG Data Tracing #1: I reviewed this ECG and interpreted as documented below: Ventricular of 60 normal sinus rhythm no acute ischemic changes noted previously seen inferior elevations from clinic EKG are no longer present no reciprocal changes etc. normal axis Medical Decision Narrative: 79-year-old with concern for prehospital STEMI EKG findings and symptoms have been dynamic and have changed. His diaphoresis is gone his inferior ST elevations that were very subtle are also gone at the moment looks normal to me from the EKG standpoint at the moment. Still possible he had some type of event that resolved itself. I spoke with Dr. Tran at the moment we will not send him to the [facility] but will workup his generalized malaise further. This could include infectious etiologies metabolic abnormalities etc. He is mildly hypotensive as well and we will give him IV fluids and reassess. Reassessment multiple times this is 12:40 PM patient remains persistently hypotensive has has had systolic blood pressures in the 80s most recently however it is improved to 114/71 after IV fluids. Patient symptoms have remained unchanged since he has been here. First troponin is negative but given the concern for prehospital STEMI will admit him for serial troponins and possible cardiac intervention. No evidence of any sepsis or SIRS criteria being met or concern for infection at the moment. Does have a mild elevation in his creatinine with an elevated BUN possibly dehydrated which could be the cause of his overall symptoms. I spoke with Dr. Olivia rios who will admit the patient for further evaluation and management. Working diagnosis remains prehospital STEMI that likely self resolved. Critical Care Critical Care Time Critical Care Time: Yes Attestation: On 10/18/24, the high probability of a clinically significant, sudden or life threatening deterioration of the following system(s) required my full and direct attention, intervention and personal management. The time I documented below is in addition to time spent performing reported procedures but includes the following listed in this critical care notation. Total Time Total Critical Care Time: 35
[2024-10-18] MEDS: LACTATED RINGERS 1000ML 1,000 ML 999 ML IV (10:53)
[2024-10-18 10:54] LABS: Coronavirus 19, PCR Not Detected (NotDetected); Influenza A, PCR Not Detected (NotDetected); Influenza B, PCR Not Detected (NotDetected)
[2024-10-18 11:04] LABS: Magnesium 2.1 mg/dl (1.6-2.3); Phosphorous 4.5 mg/dl (2.5-4.5)
[2024-10-18 11:08] LABS: Troponin I < 0.01 ng/ml (0.00-0.034)
[2024-10-18 11:13] LABS: NT Pro Brain Natriuretic Pep. 349 pg/mL (0-450)
[2024-10-18 11:54] LABS: Microscopic, Urine URINE MICROSCOPIC (MICROSCOPIC)
[2024-10-18 11:58] LABS: Bilirubin,Urine Negative (Negative); Color,Urine YELLOW (Yellow); Glucose,Urine (UA) 3+ (Negative); Ketones,Urine TRACE (Negative); Leukocyte Esterase,Urine Negative (Negative); PH,Urine 6.0 (5.0-8.5); Protein,Urine TRACE (Negative); Specific Gravity, Urine 1.015 (1.005-1.030); Urobilinogen,Urine 0.2 EU/dl (0.2)
[2024-10-18 12:24] LABS: Bacteria,Urine Trace /lpf; Squamous Epithelial Cell,Urine Occasional #/hpf (0-5); WBC,Urine Occasional #/hpf (0-3)
--- NOTE | 2024-10-18 12:40 | CA_ITS ---
APPROVED REPORT EXAM: Comprehensive 2D, Doppler, and color-flow Echocardiogram Engineering Test Specialist: Tanja Ralph RVT Ht: 6 ft 3 in Wt: 290lbs BSA: 2.57 BP: 79/48 mmHg Indications: ABNORMAL EKG VERY TDS-LIMITED WINDOWS 2D Dimensions IVSd 0.74 cm M: 0.6-1.2 LVEF (Visual) 51.80 % PWd 0.97 cm M: 0.6 - 1.2 LVDd 5.00 cm M: 4.2 - 5.9 LVDs 3.67 cm M: 2.5 - 4.0 M-Mode Dimensions LA Diam 4.11 cm (1.9-4.0) LV Diastology E Decel Time 237 (160-240 msec) E/A Ratio 0.6 Aortic Valve ROBBIE Index 1.52 cm2/m2 AoV Peak Dell. 75.0 (50-130 cm/s) AO Peak GR. 2.20 mmHg AO Mean GR. 1.60 (<5 mmHg) AO VTI 18.2 (18-25 cm) ROBBIE (VTI) 4.01 (2.5-4.5 cm2) Mitral Valve MV E Max Dell. 39.0 (40-130 cm/s) MV A Velocity 69.0 (40-130 cm/s) E/A Ratio 0.57 MV PHT 69.0 ms Pulmonary Valve PV Peak Velocity 59.0 (50-150 cm/s) Left Ventricle The left ventricle is normal size. Left ventricular systolic function is normal. The left ventricular ejection fraction is within the normal range. There is increased left ventricular wall thickness. There is normal LV segmental wall motion. The left ventricular diastolic function is indeterminate. LVEF is 55% Right Ventricle The right ventricle is milldy dilated. The right ventricular systolic function is normal. Atria The left atrium is not well visualized. The right atrium is not well visualized. There is no color Doppler evidence of interatrial shunt. Aortic Valve The aortic valve is not well visualized. Mitral Valve The mitral valve is grossly normal in structure. No evidence of mitral valve stenosis. Trace mitral regurgitation is present. Tricuspid Valve The tricuspid valve leaflets are thin and pliable. Trace tricuspid regurgitation. There is insufficient TR jet to estimate RVSP. Pulmonic Valve The pulmonary valve is not well visualized. Great Vessels The aortic root is not well visualized. IVC is not well visualized. Pericardium There is no pericardial effusion. Other Information Study Quality: Technically Difficult Conclusion Technically very difficult study. Grossly normal biventricular systolic function. Mild RV dilation. Atria not well visualized. No significant valvular stenosis or regurgitation in the visualized valves (AV and PV not well visualized). Future TTE evaluations are suggested with administration of ultrasound enhancing agent. Electronically signed by : Tracy Rahman MD 10/19/2024 12:17:35
--- NOTE | 2024-10-18 12:55 | HMH.PHAINT1 ---
Pharmacy Intervention Comments: MEDICATION RECONCILIATION COMPLETED ON PATIENT USING EXTERNAL FILL HISTORY FROM PHARMACY. -WENDY STAHL, HIEND
--- NOTE | 2024-10-18 12:58 | PC.NURSE ---
REPORT CALLED TO ROGER SIMON
--- NOTE | 2024-10-18 13:05 | EXP.HP ---
History of Present Illness *Admission Date: 10/18/24 *Reason for visit:: ST elevation, weakness *History of present illness: Enzo Amador is a 79-year-old male with a medical history significant for type 2 diabetes, hypertension who presents with malaise and diaphoresis. He presented to this PCPs office today without symptoms who obtained an EKG revealing what seemed to be ST elevation in lead 2. He was then immediately sent to the ER with resolution of this ST elevation. He was found to be hypotensive to 79/48 which resolved with IV fluids. Patient states he has not been feeling well currently ever since starting Jardiance about a week ago. He states he has been peeing very frequently and has been feeling fatigued. Denies chest pain, shortness of breath, fever/chills, abdominal pain, constipation/diarrhea. Workup in the ED significant for creatinine 1.7 baseline 1.2, UA and CXR unremarkable. EKG without acute ischemic changes. Troponin negative. Dr. Tran was consulted for initial EKG changes, recommended admission for further evaluation and management and monitoring. As such, I discussed case with ED provider and decided to admit patient for the same. [facility] Disclaimer: The information contained in this section may have been updated after the patient was seen, as this information can be updated by other users. Medical History (Updated 10/18/24 @ 14:53 by ZHAO Calzada) Arthritis HLD (hyperlipidemia) HTN (hypertension) Neuropathy B12 deficiency Type 2 diabetes mellitus with obesity Surgical History (Updated 10/18/24 @ 13:39 by Sherry Mcpherson RN) History of cataract surgery History of bilateral knee replacement Family History Other Alcoholism Coronary artery disease Diabetes Heart attack Hypertension Social History (Updated 10/18/24 @ 13:40 by Sherry Mcpherson RN) Smoking Status: Never smoker alcohol intake: never substance use type: denies use current occupational status: retired Travel in the last 8 weeks?: None household members: spouse housing: house marital status: caffeine: No Have you lived/traveled outside US in past 30 days?: No Contact w/someone who lives/traveled outside US past 30 days?: No Exposure to someone with infectious disease in past 14 days?: No Do you have a fever (greater than 100.4 F or 38 C)?: No Have you tested positive for COVID-19?: No Exposed to someone with COVID-19 in past 14 days?: No Do you have a sore throat?: No Do you have a cough?: No Do you have any weakness?: No Are you experiencing any nausea/vomitting?: No Do you have any diarrhea?: No Are you experiencing any unusual bleeding?: No Do you have any muscle aches/pain?: No Do you have any abdominal pain?: No Are you experiencing loss of taste or smell?: No Other Medical History Have you received the Pneumonia Vaccine: Yes Meds Home Medications and Allergies Home Medications ?Medication ?Instructions ?Recorded ?Confirmed ?Type amlodipine 10 mg tablet 10 mg PO DAILY 10/18/24 10/18/24 History atenolol 100 mg tablet 100 mg PO DAILY 10/18/24 10/18/24 History atorvastatin 10 mg tablet 10 mg PO DAILY 10/18/24 10/18/24 History clonidine HCl 0.2 mg tablet 0.2 mg PO DAILY 10/18/24 10/18/24 History empagliflozin 10 mg tablet 10 mg PO DAILY 10/18/24 10/18/24 History (Jardiance) hydrochlorothiazide 25 mg tablet 25 mg PO DAILY 10/18/24 10/18/24 History insulin glargine-yfgn 100 unit/mL 80 unit SQ DAILY 10/18/24 10/18/24 History (3 mL) subcutaneous pen lisinopril 40 mg tablet 40 mg PO BID 10/18/24 10/18/24 History metformin 1,000 mg tablet 1,000 mg PO BIDWMEAL 10/18/24 10/18/24 History spironolactone 25 mg tablet 25 mg PO DAILY 10/18/24 10/18/24 History New Prescriptions to Start Prescriptions: Allergies Allergy/AdvReac Type Severity Reaction Status Date / Time No Known Allergies Allergy Verified 06/20/24 08:28 Exam Data for Last 24 hours Vital signs and Labs for Last 24 Hours: Temp Pulse Resp BP Pulse Ox O2 Del Method 97.9 F 60 14 140/82 79 L Room Air 10/18/24 12:59 10/18/24 12:59 10/18/24 13:01 10/18/24 13:01 10/18/24 13:01 10/18/24 12:59 Laboratory Results - last 24 hr 10/18/24 10:20: WBC 8.3, RBC 5.39, Hgb 15.5, Hct 46.8, MCV 86.8, MCH 28.8, MCHC 33.1, RDW 13.2, Plt Count 208, MPV 10.4, Neut % (Auto) 73.7, Lymph % (Auto) 14.4, [place] % (Auto) 9.4 H, Eos % (Auto) 1.0, Baso % (Auto) 1.1, Neut # (Auto) 6.1, Lymph # (Auto) 1.2, [place] # (Auto) 0.8, Eos # (Auto) 0.1, Baso # (Auto) 0.1, Sodium 138, Potassium 5.0, Chloride 102, Carbon Dioxide 28, Anion Gap 13.0, BUN 31 H, Creatinine 1.70 H, Estimated Creat Clear 68, Estimated GFR 39 L, Est GFR ( Amer) 48 L, Glucose 173 H, Calcium 9.2, Phosphorus 4.5, Magnesium 2.1, Total Bilirubin 0.6, AST 32, ALT 32, Alkaline Phosphatase 96, Troponin I < 0.01, NT-Pro-B Natriuret Pep 349, Total Protein 7.6, Albumin 4.4, Globulin 3.2, Albumin/Globulin Ratio 1.4 10/18/24 10:46: SARS-CoV-2 (PCR) Not detected, Influenza A Untype (PCR) Not detected, Influenza Type B (PCR) Not detected 10/18/24 11:50: Urine Color Yellow, Urine Appearance Clear, Urine pH 6.0, Ur Specific [place] 1.015, Urine Protein Trace, Urine Glucose (UA) 3+, Urine Ketones Trace, Urine Blood Negative, Urine Nitrate Negative, Urine Bilirubin Negative, Urine Urobilinogen 0.2, Ur Leukocyte Esterase Negative, Urine RBC None, Urine WBC Occasional, Ur Squamous Epith Cells Occasional, Urine Bacteria Trace I & O for Last 24 hours: Intake & Output 10/15/24 10/16/24 10/17/24 10/18/24 23:59 23:59 23:59 23:59 Weight 131.542 kg Constitutional Constitutional: no acute distress and obese *Routine HEENT Exam Head: Present normocephalic Eye: Present EOMI and PERRL ENT: Present mucous membranes moist *Routine Neck Exam Neck: Present supple; Absent lymphadenopathy *Routine Respiratory Exam Respiratory: Present CTA bilaterally *Routine Cardiovascular Exam Cardiovascular: Present RRR *Routine Abdominal Exam Abdominal: Present soft and normoactive bowel sounds; Absent tenderness *Routine Rectal Exam Rectal:: deferred *Routine Genitalia Exam Genitalia:: deferred *Routine Extremities Exam Extremities: Absent cyanosis, clubbing or edema *Routine Skin Exam Skin: Present warm; Absent rash *Routine Neurological Exam Neurological: Present alert and oriented X3 Assessment and Plan *Assessment and plan (1) Hypotension: Status: Acute Qualifiers: Hypotension type: hypotension due to drug Qualified Code(s): I95.2 - Hypotension due to drugs Category: Medical Code(s): I95.9 - Hypotension, unspecified (2) Abnormal EKG: Status: Acute Category: Medical Code(s): R94.31 - Abnormal electrocardiogram [ECG] [EKG] Plan Enzo Amador is a 79-year-old male with a medical history significant for type 2 diabetes, hypertension who presents with malaise and diaphoresis. He presented to this PCPs office today without symptoms who obtained an EKG revealing what seemed to be ST elevation in lead 2. He was then immediately sent to the ER with resolution of this ST elevation. He was found to be hypotensive to 79/48 which resolved with IV fluids. Patient states he has not been feeling well currently ever since starting Jardiance about a week ago. He states he has been peeing very frequently and has been feeling fatigued. Denies chest pain, shortness of breath, fever/chills, abdominal pain, constipation/diarrhea. Workup in the ED significant for creatinine 1.7 baseline 1.2, UA and CXR unremarkable. EKG without acute ischemic changes. Troponin negative. Dr. Tran was consulted for initial EKG changes, recommended admission for further evaluation and management and monitoring. As such, I discussed case with ED provider and decided to admit patient for the same. #Medication side effect #Hypotension #LAURA on CKD #Transient ST elevation ? Presented with malaise, diaphoresis with transient ST elevation with PCP, resolved in the ED. ? Repeat EKG without acute, troponins normal. ? Hypotension improved with IV fluid resuscitation in the ED. ? Patient recently started on Jardiance 10 mg for diabetes, has been having malaise and frequent urination since then. ? Creatinine 1.7, baseline 1.2. Likely secondary to fluid loss from Jardiance. No source of infection. ? Continue LR at 75 mL/h. ? Continuous cardiac telemetry. ? Follow-up ECHO. A1c 8.6, LDL 60, follow-up TSH. ? Cardiology consulted, will make further recommendations pending above workup. Patient is not interested in inpatient [facility]. #Type 2 diabetes ? Hemoglobin A1c 8.6 in June 2024. Follow-up BP. ? Lantus 10 units nightly, continue home metformin, LDSSI, ACHS glucose checks. ? Hold home Jardiance given above potential side effect. #Hypertension ? Hold home antihypertensives given hypotension. Restart as appropriate. Full code DVT prophylaxis: Lovenox 40 mg
[2024-10-18 14:33] LABS: Troponin I < 0.01 ng/ml (0.00-0.034)
--- NOTE | 2024-10-18 14:45 | EXP.CARD.CON ---
History of Present Illness History of Present Illness Consult date: 10/18/24 Requesting physician: Watson Tobar Consult reason: hypotension Chief complaint: Weak, hypotension, abnormal EKG Additional Medical History:: 1. DM, treated for over 10 years -Hgb A1C 9.9 per patient 2. HTN 3. HLD 4. Obesity History of present illness: 79 yo WM seen in PCP office today for routine follow up but relayed weakness, nausea and some chest tightness. EKG appeared to be abnormal with possible ST elevation in the anterior leads. Subsequently sent to ER for further evaluation. 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 Troponins normal times 2 so far and echo is pending. Getting IV fluids with plans to recheck in AM. Pt relates recently switching from januvia to jardiance recently with increased urination, which may be the cause for the LAURA. [facility] Disclaimer: The information contained in this section may have been updated after the patient was seen, as this information can be updated by other users. Medical History (Updated 10/18/24 @ 14:53 by ZHAO Calzada) Arthritis HLD (hyperlipidemia) HTN (hypertension) Neuropathy B12 deficiency Type 2 diabetes mellitus with obesity Surgical History (Updated 10/18/24 @ 13:39 by Sherry Mcpherson RN) History of cataract surgery History of bilateral knee replacement Family History Other Alcoholism Coronary artery disease Diabetes Heart attack Hypertension Social History (Updated 10/18/24 @ 13:40 by Sherry Mcpherson RN) Smoking Status: Never smoker alcohol intake: never substance use type: denies use current occupational status: retired Travel in the last 8 weeks?: None household members: spouse housing: house marital status: caffeine: No Have you lived/traveled outside [place] in past 30 days?: No Contact w/someone who lives/traveled outside [place] past 30 days?: No Exposure to someone with infectious disease in past 14 days?: No Do you have a fever (greater than 100.4 F or 38 C)?: No Have you tested positive for COVID-19?: No Exposed to someone with COVID-19 in past 14 days?: No Do you have a sore throat?: No Do you have a cough?: No Do you have any weakness?: No Are you experiencing any nausea/vomitting?: No Do you have any diarrhea?: No Are you experiencing any unusual bleeding?: No Do you have any muscle aches/pain?: No Do you have any abdominal pain?: No Are you experiencing loss of taste or smell?: No Review of Systems Review of Systems Review of systems:: pertinent systems reviewed and negative unless documented below *Cardiovascular Cardiovascular: Reports chest pain and Reports dyspnea on exertion *Respiratory Respiratory: Denies cough, Reports dyspnea on exertion and Denies wheezing Allergic/Immunologic Allergic/Immunologic: Denies wheezing Exam Data for Last 24 hours Vital signs and Labs for Last 24 Hours: Temp Pulse Resp BP Pulse Ox O2 Del Method 97.7 F 60 18 137/76 92 L Room Air 10/18/24 13:33 10/18/24 13:33 10/18/24 13:33 10/18/24 13:33 10/18/24 13:33 10/18/24 13:33 Laboratory Results - last 24 hr 10/18/24 10:20: WBC 8.3, RBC 5.39, Hgb 15.5, Hct 46.8, MCV 86.8, MCH 28.8, MCHC 33.1, RDW 13.2, Plt Count 208, MPV 10.4, Neut % (Auto) 73.7, Lymph % (Auto) 14.4, [place] % (Auto) 9.4 H, Eos % (Auto) 1.0, Baso % (Auto) 1.1, Neut # (Auto) 6.1, Lymph # (Auto) 1.2, [place] # (Auto) 0.8, Eos # (Auto) 0.1, Baso # (Auto) 0.1, Sodium 138, Potassium 5.0, Chloride 102, Carbon Dioxide 28, Anion Gap 13.0, BUN 31 H, Creatinine 1.70 H, Estimated Creat Clear 68, Estimated GFR 39 L, Est GFR ( Amer) 48 L, Glucose 173 H, Calcium 9.2, Phosphorus 4.5, Magnesium 2.1, Total Bilirubin 0.6, AST 32, ALT 32, Alkaline Phosphatase 96, Troponin I < 0.01, NT-Pro-B Natriuret Pep 349, Total Protein 7.6, Albumin 4.4, Globulin 3.2, Albumin/Globulin Ratio 1.4 10/18/24 10:46: SARS-CoV-2 (PCR) Not detected, Influenza A Untype (PCR) Not detected, Influenza Type B (PCR) Not detected 10/18/24 11:50: Urine Color Yellow, Urine Appearance Clear, Urine pH 6.0, Ur Specific [place] 1.015, Urine Protein Trace, Urine Glucose (UA) 3+, Urine Ketones Trace, Urine Blood Negative, Urine Nitrate Negative, Urine Bilirubin Negative, Urine Urobilinogen 0.2, Ur Leukocyte Esterase Negative, Urine RBC None, Urine WBC Occasional, Ur Squamous Epith Cells Occasional, Urine Bacteria Trace 10/18/24 13:55: Troponin I < 0.01 I & O for Last 24 hours: Intake & Output 10/16/24 10/17/24 10/18/24 10/19/24 11:59 11:59 11:59 11:59 Weight 290 lb 285 lb 3.2 oz Constitutional Constitutional: no acute distress *Routine Respiratory Exam Respiratory: Present decreased breath sounds and CTA bilaterally *Routine Cardiovascular Exam Cardiovascular: Present RRR; Absent murmur, gallop or rubs *Routine Extremities Exam Extremities: Absent edema *Routine Neurological Exam Neurological: Present alert, oriented X3 and CN II-XII intact Meds Home Medications and Allergies Home Medications ?Medication ?Instructions ?Recorded ?Confirmed ?Type amlodipine 10 mg tablet 10 mg PO DAILY 10/18/24 10/18/24 History atenolol 100 mg tablet 100 mg PO DAILY 10/18/24 10/18/24 History atorvastatin 10 mg tablet 10 mg PO DAILY 10/18/24 10/18/24 History clonidine HCl 0.2 mg tablet 0.2 mg PO DAILY 10/18/24 10/18/24 History empagliflozin 10 mg tablet 10 mg PO DAILY 10/18/24 10/18/24 History (Jardiance) hydrochlorothiazide 25 mg tablet 25 mg PO DAILY 10/18/24 10/18/24 History insulin glargine-yfgn 100 unit/mL 80 unit SQ DAILY 10/18/24 10/18/24 History (3 mL) subcutaneous pen lisinopril 40 mg tablet 40 mg PO BID 10/18/24 10/18/24 History metformin 1,000 mg tablet 1,000 mg PO BIDWMEAL 10/18/24 10/18/24 History spironolactone 25 mg tablet 25 mg PO DAILY 10/18/24 10/18/24 History New Prescriptions to Start Prescriptions: Allergies Allergy/AdvReac Type Severity Reaction Status Date / Time No Known Allergies Allergy Verified 06/20/24 08:28 Assessment and Plan *Assessment and plan (1) Hypotension: Status: Acute Qualifiers: Hypotension type: hypotension due to drug Qualified Code(s): I95.2 - Hypotension due to drugs Category: Medical Code(s): I95.9 - Hypotension, unspecified (2) Malaise: Status: Acute Category: Medical Code(s): R53.81 - Other malaise (3) Abnormal EKG: Status: Acute Category: Medical Code(s): R94.31 - Abnormal electrocardiogram [ECG] [EKG] (4) Type 2 diabetes mellitus with peripheral neuropathy: Status: Chronic Category: Medical Code(s): E11.42 - Type 2 diabetes mellitus with diabetic polyneuropathy (5) Hypertension: Status: Chronic Qualifiers: Hypertension type: primary hypertension Qualified Code(s): I10 - Essential (primary) hypertension Category: Medical Code(s): I10 - Essential (primary) hypertension (6) Hyperlipidemia: Status: Chronic Qualifiers: Hyperlipidemia type: mixed hyperlipidemia Qualified Code(s): E78.2 - Mixed hyperlipidemia Category: Medical Code(s): E78.5 - Hyperlipidemia, unspecified Plan 1. Hypotension, malaise, LAURA with recent institution of jardiance -stop jardiance -IVF 2. Abnormal EKG (transient ST elevation anterior leads) -serial troponins -check echo -further testing pending above 3. DM, type II -on insulin -defer to Dr. Tobar 4. Hyperlipidemia -LDL 60 -on statin 5. History of hypertension -on lisinopril, atenolol, clonidine, HCTZ, amlodipine and spironolactone IV fluids Echo further recommendations to follow tomorrow
--- NOTE | 2024-10-18 16:12 | PC.NURSE ---
fsbs 209 and dexcom reading 219
[2024-10-18] MEDS: humaLOG 100 UNITS/ML 10ML VIAL (SSI) SUBCUT ×2 (16:23→20:23)
[2024-10-18 16:46] LABS: POC Glucose,Bedside 209 (70-110)
[2024-10-18 17:53] LABS: Troponin I < 0.01 ng/ml (0.00-0.034)
[2024-10-19] VITALS: BP 137/92; PULSE 77; RESP 18; TEMP 37.2; O2SAT 93
--- NOTE | 2024-10-19 02:48 | PC.NURSE ---
Pt AOx4. Continually denies pain or any additional needs throughout shift. Currently resting in bed with eyes closed, respirations even and unlabored. Bed is low, locked, and call light is in reach.
[2024-10-19 04:00] VITALS: BP 117/62; PULSE 75; RESP 16; TEMP 37.1; O2SAT 95; BMI 36.6
[2024-10-19] MEDS: humaLOG 100 UNITS/ML 10ML VIAL (SSI) SUBCUT ×2 (05:47→11:36)
[2024-10-19 06:18] LABS: Hematocrit 42.8 % (42.0-52.0); Hemoglobin 14.0 g/dL (14.1-18.0); Immature Granulocytes % 0.6 %; Mean Corpuscular HGB Conc 32.7 g/dL (31.8-35.4); Mean Corpuscular Hemoglobin 28.2 pg (27.0-31.2); Mean Corpuscular Volume 86.3 fl (80-94); Nucleated Red Blood Cells % 0 %; Platelet Count 166 K/mm3 (142-424); Red Blood Count 4.96 M/mm3 (4.60-6.20); Red Cell Distribution Width-SD 41.0 fL; White Blood Count 5.1 K/mm3 (4.8-10.8)
[2024-10-19 06:30] LABS: Chloride 103 mmol/L (98-107)
[2024-10-19 06:31] LABS: Albumin Level 3.9 g/dl (3.5-5.0); Potassium 4.4 mmoL/L (3.5-5.1); Sodium 135 mmol/L (136-145)
[2024-10-19 06:33] LABS: Anion Gap 11.4 mEq/L (5-15); Blood Urea Nitrogen 29 mg/dl (9-20); Carbon Dioxide 25 mmol/L (22.0-30.0); Creatinine Clearance Estimated 71 mL/min (50-200); Creatinine,Serum 1.60 mg/dl (0.66-1.25); Estimated Glomerular Filt Rate 42 ml/min (>60); GFR (African American) 51 ML/MIN (>60)
[2024-10-19 06:34] LABS: Alanine Aminotransferase 32 U/L (12-78); Albumin/Globulin Ratio 1.4 (1.1-1.8); Alkaline Phosphatase 87 U/L (38-126); Aspartate Amino Transferase 36 U/L (17-59); Bilirubin,Total 0.5 mg/dl (0.2-1.3); Calcium 8.8 mg/dl (8.4-10.2); Globulin 2.7 g/dL (1.3-3.2); Glucose 184 mg/dl (74-100); Magnesium 2.2 mg/dl (1.6-2.3); Total Protein,Serum 6.6 g/dl (6.3-8.2)
[2024-10-19 07:27] LABS: Microscopic, Urine URINE MICROSCOPIC (MICROSCOPIC)
[2024-10-19 07:30] LABS: Bilirubin,Urine Negative (Negative); Color,Urine YELLOW (Yellow); Glucose,Urine (UA) 3+ (Negative); Ketones,Urine Negative (Negative); Leukocyte Esterase,Urine Negative (Negative); PH,Urine 6.0 (5.0-8.5); Protein,Urine Negative (Negative); Specific Gravity, Urine 1.015 (1.005-1.030); Urobilinogen,Urine 0.2 EU/dl (0.2)
[2024-10-19 07:58] LABS: Bacteria,Urine Trace /lpf
[2024-10-19 08:00] VITALS: BP 120/61; PULSE 59; RESP 16; TEMP 36.8; O2SAT 94
[2024-10-19 08:01] LABS: Mucus,Urine Trace /lpf; RBC,Urine Occasional #/hpf (0-3); Squamous Epithelial Cell,Urine Occasional #/hpf (0-5); WBC,Urine Occasional #/hpf (0-3)
[2024-10-19] MEDS: INSULIN GLARGINE 100 UNITS/ML 3ML FLEXPEN 10 UNIT SUBCUT (09:38)
[2024-10-19] MEDS: LACTATED RINGERS 1000ML 500 ML IV (09:39)
[2024-10-19 09:55] LABS: POC Glucose,Bedside 205 (70-110)
--- NOTE | 2024-10-19 10:00 | P.PN_ITS ---
Subjective Subjective Date: 10/19/24 Time: 10:01 Principal diagnosis: Hypotension Interval history: 79-year-old white male lying in bed in no acute distress. Preliminary echocardiogram showed preserved ejection fraction with no significant valve disease. Troponins were normal. No complaints overnight. IV fluids still going. Patient is anxious to go home Exam Data for Last 24 hours Vital signs and Labs for Last 24 Hours: Temp Pulse Resp BP Pulse Ox O2 Del Method 98.3 F 59 L 16 120/61 94 L Room Air 10/19/24 08:00 10/19/24 08:00 10/19/24 08:00 10/19/24 08:00 10/19/24 08:00 10/19/24 08:00 Laboratory Results - last 24 hr 10/18/24 10:20: WBC 8.3, RBC 5.39, Hgb 15.5, Hct 46.8, MCV 86.8, MCH 28.8, MCHC 33.1, RDW 13.2, Plt Count 208, MPV 10.4, Neut % (Auto) 73.7, Lymph % (Auto) 14.4, [place] % (Auto) 9.4 H, Eos % (Auto) 1.0, Baso % (Auto) 1.1, Neut # (Auto) 6.1, Lymph # (Auto) 1.2, [place] # (Auto) 0.8, Eos # (Auto) 0.1, Baso # (Auto) 0.1, Sodium 138, Potassium 5.0, Chloride 102, Carbon Dioxide 28, Anion Gap 13.0, BUN 31 H, Creatinine 1.70 H, Estimated Creat Clear 68, Estimated GFR 39 L, Est GFR ( Amer) 48 L, Glucose 173 H, Calcium 9.2, Phosphorus 4.5, Magnesium 2.1, Total Bilirubin 0.6, AST 32, ALT 32, Alkaline Phosphatase 96, Troponin I < 0.01, NT-Pro-B Natriuret Pep 349, Total Protein 7.6, Albumin 4.4, Globulin 3.2, Albumin/Globulin Ratio 1.4 10/18/24 10:46: SARS-CoV-2 (PCR) Not detected, Influenza A Untype (PCR) Not detected, Influenza Type B (PCR) Not detected 10/18/24 11:50: Urine Color Yellow, Urine Appearance Clear, Urine pH 6.0, Ur Specific [place] 1.015, Urine Protein Trace, Urine Glucose (UA) 3+, Urine Ketones Trace, Urine Blood Negative, Urine Nitrate Negative, Urine Bilirubin Negative, Urine Urobilinogen 0.2, Ur Leukocyte Esterase Negative, Urine RBC None, Urine WBC Occasional, Ur Squamous Epith Cells Occasional, Urine Bacteria Trace 10/18/24 13:55: Troponin I < 0.01 10/18/24 16:11: POC Glucose 209 H 10/18/24 16:47: Troponin I < 0.01 10/19/24 03:45: Urine Color Yellow, Urine Appearance Clear, Urine pH 6.0, Ur Specific [place] 1.015, Urine Protein Negative, Urine Glucose (UA) 3+, Urine Ketones Negative, Urine Blood Negative, Urine Nitrate Negative, Urine Bilirubin Negative, Urine Urobilinogen 0.2, Ur Leukocyte Esterase Negative, Urine RBC Occasional, Urine WBC Occasional, Ur Squamous Epith Cells Occasional, Urine Bacteria Trace, Urine Mucus Trace 10/19/24 05:54: WBC 5.1 D, RBC 4.96, Hgb 14.0 L, Hct 42.8, MCV 86.3, MCH 28.2, MCHC 32.7, RDW 13.2, Plt Count 166, MPV 10.4, Neut % (Auto) 70.0, Lymph % (Auto) 19.0, [place] % (Auto) 8.8, Eos % (Auto) 0.4, Baso % (Auto) 1.2, Neut # (Auto) 3.6, Lymph # (Auto) 1.0, [place] # (Auto) 0.5, Eos # (Auto) 0.0, Baso # (Auto) 0.1, Sodium 135 L, Potassium 4.4, Chloride 103, Carbon Dioxide 25, Anion Gap 11.4, BUN 29 H, Creatinine 1.60 H, Estimated Creat Clear 71, Estimated GFR 42 L, Est GFR ( Amer) 51 L, Glucose 184 H, Calcium 8.8, Magnesium 2.2, Total Bilirubin 0.5, AST 36, ALT 32, Alkaline Phosphatase 87, Total Protein 6.6, Albumin 3.9 D, Globulin 2.7, Albumin/Globulin Ratio 1.4 10/19/24 09:35: POC Glucose 205 H I & O for Last 24 hours: Intake & Output 08/1210/17/24 10/18/24 10/19/24 11:59 11:59 11:59 11:59 Intake Total 960 / 960 Output Total 500 / 500 Balance 460 / 460 Weight 290 lb 285 lb 11.2 oz Constitutional Constitutional: no acute distress, mild distress and moderate distress *Routine Respiratory Exam Respiratory: Present CTA bilaterally *Routine Cardiovascular Exam Cardiovascular: Present RRR; Absent murmur, gallop or rubs Progress Note: A&P Assessment and plan (1) Hypotension: Status: Acute (2) Abnormal EKG: Status: Acute Assessment and Plan Assessment and Plan for All Diagnoses:: 1. Hypotension, malaise, LAURA with recent institution of jardiance -stop jardiance -IVF 2. Abnormal EKG (transient ST elevation anterior leads) -serial troponins normal -Echo shows preserved EF with no significant valve disease -Plan follow-up with outpatient stress test 3. DM, type II -on insulin -defer to Dr. Tobar 4. Hyperlipidemia -LDL 60 -on statin 5. History of hypertension -on lisinopril, atenolol, clonidine, HCTZ, amlodipine and spironolactone Stable from cardiac standpoint for discharge home. Resume home medications. Follow-up in our office in 2 weeks to discuss outpatient stress testing.
[2024-10-19 10:43] VITALS: BP 129/75; BP 140/82; BP 152/80; PULSE 71; PULSE 75; PULSE 78
[2024-10-19 11:12] LABS: POC Glucose,Bedside 225 (70-110)
[2024-10-19 12:00] VITALS: BP 114/59; PULSE 74; RESP 16; TEMP 37.7; O2SAT 93
--- NOTE | 2024-10-19 13:16 | P.DS_ITS ---
General Admission date:: 10/18/24 HPI HPI HPI: Enzo Amador is a 79-year-old male with a medical history significant for type 2 diabetes, hypertension who presents with malaise and diaphoresis. He presented to this PCPs office today without symptoms who obtained an EKG revealing what seemed to be ST elevation in lead 2. He was then immediately sent to the ER with resolution of this ST elevation. He was found to be hypotensive to 79/48 which resolved with IV fluids. Patient states he has not been feeling well currently ever since starting Jardiance about a week ago. He states he has been peeing very frequently and has been feeling fatigued. Denies chest pain, shortness of breath, fever/chills, abdominal pain, constipation/diarrhea. Workup in the ED significant for creatinine 1.7 baseline 1.2, UA and CXR unremarkable. EKG without acute ischemic changes. Troponin negative. Dr. Tran was consulted for initial EKG changes, recommended admission for further evaluation and management and monitoring. As such, I di scussed case with ED provider and decided to admit patient for the same. Hospital Course Hospital Course Hospital Course: Enzo Amador is a 79-year-old male with a medical history significant for type 2 diabetes, hypertension who presents with malaise and diaphoresis. He presented to this PCPs office today without symptoms who obtained an EKG revealing what seemed to be ST elevation in lead 2. He was then immediately sent to the ER with resolution of this ST elevation. He was found to be hypotensive to 79/48 which resolved with IV fluids. Patient states he has not been feeling well currently ever since starting Jardiance about a week ago. He states he has been peeing very frequently and has been feeling fatigued. Denies chest pain, shortness of breath, fever/chills, abdominal pain, constipation/diarrhea. Workup in the ED significant for creatinine 1.7 baseline 1.2, UA and CXR unremarkable. EKG without acute ischemic changes. Troponin negative. Dr. Tran was consulted for initial EKG changes, recommended admission for further evaluation and management and monitoring. As such, I discussed case with ED provider and decided to admit patient for the same. #Medication side effect #Hypotension #LAURA on CKD #Transient ST elevation ? Presented with malaise, diaphoresis with transient ST elevation with PCP, resolved upon arrival to the ED. ? Repeat EKG without acute, troponins normal. Hypotension 79/48 improved with IV fluid resuscitation in the ED. ? Patient recently started on Jardiance 10 mg for diabetes, has been having malaise and frequent urination since then. ? Symptoms, renal function improved with fluid resuscitation. ? ECHO without reduced EF, wall motion abnormalities. A1c 8.6, LDL 60, TSH normal. ? Cardiology consulted, recommend outpatient ischemic workup. Will follow-up within 2 weeks. #Type 2 diabetes ? Hemoglobin A1c 8.6 in June 2024. ? Continue home metformin, Lantus 80 units daily. ? Hold home Jardiance given above potential side effect. Patient will follow-up with PCP within 1 weeks. #Hypertension ? Continue home atenolol, hold home spironolactone, amlodipine, clonidine, hydrochlorothiazide, lisinopril due to initial hypotension and now normal pressures. Will follow-up with PCP within 1 week for further evaluation and management. Exam Data for Last 24 hours Vital signs and Labs for Last 24 Hours: Temp Pulse Resp BP Pulse Ox O2 Del Method 99.8 F H 74 16 114/59 L 93 L Room Air 10/19/24 12:00 10/19/24 12:00 10/19/24 12:00 10/19/24 12:00 10/19/24 12:00 10/19/24 12:00 Laboratory Results - last 24 hr 10/18/24 13:55: Troponin I < 0.01 10/18/24 16:11: POC Glucose 209 H 10/18/24 16:47: Troponin I < 0.01 10/19/24 03:45: Urine Color Yellow, Urine Appearance Clear, Urine pH 6.0, Ur Specific Wilmot 1.015, Urine Protein Negative, Urine Glucose (UA) 3+, Urine Ketones Negative, Urine Blood Negative, Urine Nitrate Negative, Urine Bilirubin Negative, Urine Urobilinogen 0.2, Ur Leukocyte Esterase Negative, Urine RBC Occasional, Urine WBC Occasional, Ur Squamous Epith Cells Occasional, Urine Bacteria Trace, Urine Mucus Trace 10/19/24 05:54: WBC 5.1 D, RBC 4.96, Hgb 14.0 L, Hct 42.8, MCV 86.3, MCH 28.2, MCHC 32.7, RDW 13.2, Plt Count 166, MPV 10.4, Neut % (Auto) 70.0, Lymph % (Auto) 19.0, Mitchell % (Auto) 8.8, Eos % (Auto) 0.4, Baso % (Auto) 1.2, Neut # (Auto) 3.6, Lymph # (Auto) 1.0, Mitchell # (Auto) 0.5, Eos # (Auto) 0.0, Baso # (Auto) 0.1, Sodium 135 L, Potassium 4.4, Chloride 103, Carbon Dioxide 25, Anion Gap 11.4, BUN 29 H, Creatinine 1.60 H, Estimated Creat Clear 71, Estimated GFR 42 L, Est GFR ( Amer) 51 L, Glucose 184 H, Calcium 8.8, Magnesium 2.2, Total Bilirubin 0.5, AST 36, ALT 32, Alkaline Phosphatase 87, Total Protein 6.6, Albumin 3.9 D, Globulin 2.7, Albumin/Globulin Ratio 1.4 10/19/24 09:35: POC Glucose 205 H 10/19/24 11:04: POC Glucose 225 H I & O for Last 24 hours: Intake & Output 10/16/24 10/17/24 10/18/24 10/19/24 23:59 23:59 23:59 23:59 Intake Total 480 / 480 720 / 720 Output Total 200 / 200 700 / 700 Balance 280 / 280 20 / 20 Weight 129.365 kg 129.591 kg Constitutional Constitutional: no acute distress, mild distress and moderate distress *Routine Respiratory Exam Respiratory: Present CTA bilaterally *Routine Cardiovascular Exam Cardiovascular: Present RRR; Absent murmur, gallop or rubs Results Data Completed and Pending Labs on day of discharge: Labs from last 24 hours 10/19/24 10/19/24 10/19/24 11:04 09:35 05:54 WBC 5.1 D RBC 4.96 Hgb 14.0 L Hct 42.8 MCV 86.3 MCH 28.2 MCHC 32.7 RDW 13.2 Plt Count 166 MPV 10.4 Neut % (Auto) 70.0 Lymph % (Auto) 19.0 Mitchell % (Auto) 8.8 Eos % (Auto) 0.4 Baso % (Auto) 1.2 Neut # (Auto) 3.6 Lymph # (Auto) 1.0 Mitchell # (Auto) 0.5 Eos # (Auto) 0.0 Baso # (Auto) 0.1 Sodium 135 L Potassium 4.4 Chloride 103 Carbon Dioxide 25 Anion Gap 11.4 BUN 29 H Creatinine 1.60 H Estimated Creat Clear 71 Estimated GFR 42 L Est GFR ( Amer) 51 L Glucose 184 H POC Glucose 225 H 205 H Calcium 8.8 Magnesium 2.2 Total Bilirubin 0.5 AST 36 ALT 32 Alkaline Phosphatase 87 Troponin I Total Protein 6.6 Albumin 3.9 D Globulin 2.7 Albumin/Globulin Ratio 1.4 Urine Color Urine Appearance Urine pH Ur Specific Wilmot Urine Protein Urine Glucose (UA) Urine Ketones Urine Blood Urine Nitrate Urine Bilirubin Urine Urobilinogen Ur Leukocyte Esterase Urine RBC Urine WBC Ur Squamous Epith Cells Urine Bacteria Urine Mucus 10/19/24 10/18/24 10/18/24 03:45 16:47 16:11 WBC RBC Hgb Hct MCV MCH MCHC RDW Plt Count MPV Neut % (Auto) Lymph % (Auto) Mitchell % (Auto) Eos % (Auto) Baso % (Auto) Neut # (Auto) Lymph # (Auto) Mitchell # (Auto) Eos # (Auto) Baso # (Auto) Sodium Potassium Chloride Carbon Dioxide Anion Gap BUN Creatinine Estimated Creat Clear Estimated GFR Est GFR ( Amer) Glucose POC Glucose 209 H Calcium Magnesium Total Bilirubin AST ALT Alkaline Phosphatase Troponin I < 0.01 Total Protein Albumin Globulin Albumin/Globulin Ratio Urine Color Yellow Urine Appearance Clear Urine pH 6.0 Ur Specific Wilmot 1.015 Urine Protein Negative Urine Glucose (UA) 3+ Urine Ketones Negative Urine Blood Negative Urine Nitrate Negative Urine Bilirubin Negative Urine Urobilinogen 0.2 Ur Leukocyte Esterase Negative Urine RBC Occasional Urine WBC Occasional Ur Squamous Epith Cells Occasional Urine Bacteria Trace Urine Mucus Trace 10/18/24 13:55 WBC RBC Hgb Hct MCV MCH MCHC RDW Plt Count MPV Neut % (Auto) Lymph % (Auto) Mitchell % (Auto) Eos % (Auto) Baso % (Auto) Neut # (Auto) Lymph # (Auto) Mitchell # (Auto) Eos # (Auto) Baso # (Auto) Sodium Potassium Chloride Carbon Dioxide Anion Gap BUN Creatinine Estimated Creat Clear Estimated GFR Est GFR ( Amer) Glucose POC Glucose Calcium Magnesium Total Bilirubin AST ALT Alkaline Phosphatase Troponin I < 0.01 Total Protein Albumin Globulin Albumin/Globulin Ratio Urine Color Urine Appearance Urine pH Ur Specific Wilmot Urine Protein Urine Glucose (UA) Urine Ketones Urine Blood Urine Nitrate Urine Bilirubin Urine Urobilinogen Ur Leukocyte Esterase Urine RBC Urine WBC Ur Squamous Epith Cells Urine Bacteria Urine Mucus DS: Diagnosis Discharge Diagnosis (1) Hypotension: Status: Acute Code(s): I95.9 - Hypotension, unspecified Qualifiers: Hypotension type: hypotension due to drug Qualified Code(s): I95.2 - Hypotension due to drugs (2) Abnormal EKG: Status: Acute Code(s): R94.31 - Abnormal electrocardiogram [ECG] [EKG] Meds Home Medications and Allergies Home Medications ?Medication ?Instructions ?Recorded ?Confirmed ?Type amlodipine 10 mg tablet 10 mg PO DAILY 10/18/2410/05 History Held on 10/19/24. Instructions: Resume on 10/26/24. Follow-up with PCP/data security coordinator to discuss restarting this medication as your blood pressures have been normal and you presented with dehydration. atenolol 100 mg tablet 100 mg PO DAILY 10/18/24 History atorvastatin 10 mg tablet 10 mg PO DAILY 10/18/2410/05 History clonidine HCl 0.2 mg tablet 0.2 mg PO DAILY 10/18/24 0 10/18/24 History Held on 10/19/24. Instructions: Resume on 10/26/24. Follow-up with PCP/data security coordinator to discuss restarting this medication as your blood pressures have been normal and you presented with dehydration. hydrochlorothiazide 25 mg tablet 25 mg PO DAILY 10/18/24 History Held on 10/19/24. Instructions: Resume on 10/26/24. Follow-up with PCP/data security coordinator to discuss restarting this medication as your blood pressures have been normal and you presented with dehydration. insulin glargine-yfgn 100 unit/mL 80 unit SQ DAILY 10/18/24 History (3 mL) subcutaneous pen lisinopril 40 mg tablet 40 mg PO BID 10/18/24 History Held on 10/19/24. Instructions: Resume on 10/26/24. Follow-up with PCP/data security coordinator to discuss restarting this medication as your blood pressures have been normal and you presented with dehydration. metformin 1,000 mg tablet 1,000 mg PO BIDWMEAL 5 10/18/24 History spironolactone 25 mg tablet 25 mg PO DAILY 10/18/24 History Held on 10/19/24. Instructions: Resume on 10/26/24. Follow-up with PCP/data security coordinator to discuss restarting this medication as your blood pressures have been normal and you presented with dehydration. New Prescriptions to Start Prescriptions: Allergies Allergy/AdvReac Type Severity Reaction Status Date / Time No Known Allergies Allergy Verified 06/20/24 08:28 Discharge Plan Disposition Patient Disposition: Home, Self-Care Condition: Fair Follow up Plan Follow up with: Constantino Watts APRN [Primary Care Provider, Medical] - 10/30/24 11:00 am Miguel Beltre PA [Physician Time Study Technologist, Cardiology] - 10/31/24 1:30 pm Prescriptions/Medication Reconciliation: Continued atorvastatin 10 mg tablet 10 mg PO DAILY atenolol 100 mg tablet 100 mg PO DAILY metformin 1,000 mg tablet 1,000 mg PO BIDWMEAL insulin glargine-yfgn 100 unit/mL (3 mL) Insulin Pen 80 unit SQ DAILY Held spironolactone 25 mg tablet 25 mg PO DAILY Hold Instructions: Resume on 10/26/24. Follow-up with PCP/data security coordinator to discuss restarting this medication as your blood pressures have been normal and you presented with dehydration. clonidine HCl 0.2 mg tablet 0.2 mg PO DAILY Hold Instructions: Resume on 10/26/24. Follow-up with PCP/data security coordinator to discuss restarting this medication as your blood pressures have been normal and you presented with dehydration. amlodipine 10 mg tablet 10 mg PO DAILY Hold Instructions: Resume on 10/26/24. Follow-up with PCP/data security coordinator to discuss restarting this medication as your blood pressures have been normal and you presented with dehydration. hydrochlorothiazide 25 mg tablet 25 mg PO DAILY Hold Instructions: Resume on 10/26/24. Follow-up with PCP/data security coordinator to discuss restarting this medication as your blood pressures have been normal and you presented with dehydration. lisinopril 40 mg tablet 40 mg PO BID Hold Instructions: Resume on 10/26/24. Follow-up with PCP/data security coordinator to discuss restarting this medication as your blood pressures have been normal and you presented with dehydration. Discontinued Jardiance 10 mg tablet 10 mg PO DAILY Problem Reconciliation Problems Reviewed?: Yes Patient Discharge Instructions Patient Instructions: Heart-Healthy Diet, DI for Fatigue, DI for Hypotension Print Language: Anguill[place] Providers Primary Care Provider: Constantino Watts Admit Provider: Watson Tobar Attending Provider: Watson Tobar
--- NOTE | 2024-10-19 13:19 | DIET.NUTRFU ---
RD consulted for diabetic teaching, wifes request. Patient plans to discharge today. Reviewed diabetic trifold handout, fiber and carb counting handout. has been watching carb intake, patient may not eating enough carbs for medication tx. His last A1c was 9.9%. He does report eating a banana, low carb wrap, peas. They eat out alot. Patient would benefit from weight loss, encouraged increasing fiber intake and if able exercise. Also talked about water intake, feels patient was dehydrated in sun prior to coming in
--- NOTE | 2024-10-23 09:42 | SW/DCPLANNER ---
Spoke with patient's on the phone. Patient's stated that he is not doing well. Patient's blood pressure is high since they held 5 of his blood pressure medicine. I suggested that the patient's call his primary care provider to see if he can not start it back. Patient's stated that they are aware of his upcoming appointments. Patient's stated that they have no concerns or questions at this time. Maria Del Carmen Gasca
== END 2024-10-19 14:40 | disposition home or self-care (01) ==
LOC: ER 12:40 → 2ND 12:48
PROVIDERS: Admitting Provider Student in an Organized Health Care Education/Training Program; Emergency Provider Student in an Organized Health Care Education/Training Program; PCP Nurse Practitioner Family; Visit Provider Student in an Organized Health Care Education/Training Program
DX: I95.2 Hypotension due to drugs (principal); T38.3X5A Adverse effect of insulin and oral hypoglycemic [antidiabetic] drugs, initial encounter; R94.31 Abnormal electrocardiogram [ECG] [EKG]; E11.22 Type 2 diabetes mellitus with diabetic chronic kidney disease; I12.9 Hypertensive chronic kidney disease with stage 1 through stage 4 chronic kidney disease, or unspecified chronic kidney disease; E11.42 Type 2 diabetes mellitus with diabetic polyneuropathy; E78.2 Mixed hyperlipidemia; N17.9 Acute kidney failure, unspecified; E66.9 Obesity, unspecified; N18.9 Chronic kidney disease, unspecified; Z79.4 Long term (current) use of insulin; Z82.49 Family history of ischemic heart disease and other diseases of the circulatory system; Z68.36 Body mass index [BMI] 36.0-36.9, adult; Z79.84 Long term (current) use of oral hypoglycemic drugs; Z79.899 Other long term (current) drug therapy
CPT/HCPCS: 36415; 71045; 80053; 81001; 82962; 83735; 83880; 84100; 84484; 85025; 87636; 93005; 93306; 96360; 96361; 99291; G0378; J1650; J7120

== ENCOUNTER 2024-11-13 06:03 | Outpatient (CLI) | payer MEDICARE, OTHER, SELFPAY ==
--- OUTSIDE RECORDS SUMMARY | 2019-01-19 10:20 | XMS_ITS | Encounter Summary ---
Author Organization [facility] [place] [address] Care Team Providers Care Senior Software Manager Name Role Phone Ariel Villaseñor MD Primary Care Provider [phone] Encounter Details Date Type Department Care Team (Latest Contact Info) Description 01/19/2019 9:20 AM EST Hospital Encounter [facility] Referral Lab [address] [place] [phone] Brian Mcmanus MD [address] [place] [address] Presence of right artificial knee [...] 01/19/2019 10:30 AM EST [facility] Blood Venipuncture / Unknown 01/19/2019 9:49 AM EST 01/19/2019 9:49 AM EST us Brian Mcmanus MD HEMATOLOGY ORDERABLES Final Result [facility] [employer] 1 [facility] , [place] [address] * (ABNORMAL) CBC WITH DIFF [...] 10:11 AM EST [facility] [place] Percent 6.5 % 01/19/2019 10:11 AM EST [facility] Eos Percent 8.6 % 01/19/2019 10:11 AM EST [facility] Baso Percent 1.5 % 01/19/2019 10:11 AM EST [facility] Neut # 6.1 1.6 - 6.1 x10(3)/[facility] 01/19/2019 10:11 AM EST [facility] [email or web address] Comment:Neutrophils equals s egs plus bands IMMGRAN# 0.1 0.0 - 0.1 x10(3)/[facility] 01/19/2019 10:11 AM EST [facility] [email or web address] Comment:Automated count of m etamyelocytes, myelocytes and promyelocytes. An absolute IG <0.1 is reported as 0.0. Lymph # 2.2 1.2 - 3.9 x10(3)/[facility] 01/19/2019 10:11 AM EST [facility] [place] # 0.7 0.3 - 0.9 x10(3)/[facility] 01/19/2019 10:11 AM EST [facility] Eos# 0.9(H) 0.0 - 0.5 x10(3)/[facility] 01/19/2019 10:11 AM EST [facility] Baso # 0.2(H) 0.0 - 0.1 x10(3)/[facility] 01/19/2019 10:11 AM EST [facility] [email or web address] Blood Venipuncture / Unknown 01/19/2019 9:49 AM EST 01/19/2019 9:49 AM EST us Brian Mcmanus MD HEMATOLOGY ORDERABLES Final Result [facility] [email or web address] 1 [facility] , [place] [address] * C-REACTIVE PROTEIN (01/19/2019 9:49 AM EST) CRP 3.41 <=5.00 mg/L 01/19/2019 10:32 AM EST [facility] [email or web address] Blood Venipuncture / Unknown 01/19/2019 9:49 AM EST 01/19/2019 9:49 AM EST us Brian Mcmanus MD CHEMISTRY ORDERABLES Final R esult [facility] 1 [facility] , [address] [place] [phone] documented in this encounter Visit Diagnoses Diagnosis Presence of right artificial knee joint Knee joint replacement by other means documented in this encounter Care Teams Senior Software Manager Relationship Specialty Start Date End Date Ariel Villaseñor MD [address] [place] [address] PCP - General Internal Medicine 05/16/15 documented as of this encounter
--- NOTE | 2024-11-13 | CA_ITS ---
APPROVED REPORT Exam: Pharmacologic Technologist: Avis Kirk Stress Nurse: Jennifer Acosta Ht: 6 ft 2 in Wt: 288 lbs BSA: 2.54 m2 HR: 82 bpm BP: 178/84 mmHg Stress Test Details Test: Lexiscan HR Resting HR: 82 bpm Max Heart Rate (APMHR): 143.828523 bpm Max HR Achieved: 93 bpm Target HR (85% APMHR): 121.237108 bpm % of APMHR: 65.04 Recovery HR: 88 bpm BP Resting BP: 178.0/84.0 mmHg Max BP: 182.0/93.0 mmHg Recovery BP: 164.0/87.0 mmHg ECG Resting ECG: Sinus rhythm Stress ECG Conclusion Lungs CTA Symptoms: None Arrhythmias/Ectopy: PAC ST-T Changes: Less than 0.[address] segment Conclusion: Non-diagnostic ECG/Lexiscan Electronically signed by : Tracy Rahman MD 11/13/2024 13:05:15
--- OUTSIDE RECORDS SUMMARY | 2024-11-13 06:07 | XMS_ITS | Clinical Summary ---
Author Organization [facility] Address [address] [place] [address] Phone Care Team Providers Care Welt Wheeler Name Role Phone Ariel Villaseñor MD Primary Care Provider [phone] Allergies No known active allergies Medications acarbose [...] 75+ series) 08/30/2022 COVID-19 Vaccine ( season) 2024 01/23/2021, 05/16/2020, 04/18/2020 Influenza Vaccine (#1) 2024 [...] this topic Medical Devices Implanted Type Area Water Fabricator Operator Device Identifier Shelf Expiration Date Model / Serial / Lot Baseplate Tibial Tritanium Triathlon Size 7 - [id number] Implanted:Qty: 1 on 05/26/2015 by Brian Mcmanus MD at [facility] Left: Knee CHUCHO:ORTHOPEDI CS 05/04/2020 5536-B-700 / / [id number] Component Femoral Stabilized Posterior Triathlon #6 Left - [id number] Implanted:Qty: 1 on 05/26/2015 by Brian Mcmanus MD at [facility] Left: Knee CHUCHO:ORTHOPEDI CS 05/12/2020 5516-F-601 / / [id number] Patella Backed Metal Tritanium Asymmetric A 40 X 11 - [id number] Implanted:Qty: 1 on 05/26/2015 by Brian Mcmanus MD at [facility] Left: Knee CHUCHO:ORTHOPEDI CS 04/28/2020 5552-L-401 / / [id number] Insert Bearing Tibial X3 Triathlon Ps Size 7-9mm - [id number] Implanted:Qty: 1 on 05/26/2015 by Brian Mcmanus MD at [facility] Left: Knee CHUCHO:ORTHOPEDI CS 04/06/2020 [id number]-G-[id number] / / [id number] Cmpnt Fem 6 Kn Rt Post Stab Bead Trthln Pa - [id number] Implanted:Qty: 1 on 08/08/2018 by Brian Mcmanus MD at [facility] Right: Knee CHUCHO:ORTHOPEDI 11/21/2022 [id number] / / [id number] Patella Backed Metal Tritanium Asymmetric A 40 X 11 - [id number] Implanted:Qty: 1 on 08/08/2018 by Brian Mcmanus MD at [facility] Right: Knee CHUCHO:ORTHOPEDI 01/18/2023 [id number]-L-401 / / [id number] Bsplt Tib Trthln 7 Kn Tritanium - [id number] Implanted:Qty: 1 on 08/08/2018 by Brian Mcmanus MD at [facility] Right: Knee CHUCHO:ORTHOPEDI 03/14/2023 5536-B-700 / / [id number] Ins Tib 7 9mm Kn X3 Post Stab Brng Trthln - [id number] Implanted:Qty: 1 on 08/08/2018 by Brian Mcmanus MD at [facility] Right: Knee CHUCHO:ORTHOPEDI 05/13/2020 [id number] / / [id number] Procedures Procedure Name Priority Date/Time Associated Diagnosis Comments BASIC METABOLIC PANEL Routine 05/19/2015 8:14 AM EDT Preop testing Primary osteoarthritis of left knee from Last 3 Months or Most Recently Relevant to Health Maintenance Results * (ABNORMAL) BASIC METABOLIC PANEL (05/19/2015 8:14 AM EDT) [facility] Signature Sodium 139 136 - 145 mmol/L [facility] Potassium 4.5 3.5 - 5.0 mmol/L [facility] Chloride 100 98 - 107 mmol/L [facility] Total CO2 24 22 - 29 mmol/L [facility] Anion Gap 15 7 - 16 mmol/L [facility] Calcium 9.2 8.8 - 10.2 mg/dL [facility] Glucose Lvl 267(H) 82 - 100 mg/dL [facility] BUN 19 8 - 23 mg/dL [facility] Creatinine 0.86 0.67 - 1.30 mg/dL [facility] GFR Afr Am >60 [facility] GFR Non Afr Am >60 [facility] Blood specimen (specimen) UPPER LIMB STRUCTURE / Unknown 05/19/2015 8:14 AM EDT 05/19/2015 8:40 AM EDT Hollie Boss LUGGAGE ATTENDANT CHEMISTRY ORDERABLES Edited R esult - Final [facility] [address] [place] [address] from Last 3 Months or Most Recently Relevant to Health Maintenance [place] [address] [place] [address] MEDICARE SUPPLEMENT MEDICARE [place] PART A AND B MEDICARE SUPPLEMENT MEDICARE [place] PART A [place] B Advance Directives For more information, please contact: [phone] Documents on File Type Date Recorded Patient Tube And Rod Straightener Expl anation ADVANCE DIRECTIVE 08/08/2018 12:23 PM Advance Directives/DNR 05/26/2015 8:52 AM May 26 2015 12:51:51:266 GMT * Full Code (Latest Code Status on File) Date Activated Date Inactivated Comments 08/08/2018 6:29 PM 08/10/2018 6:26 PM * Full Code Date Activated Date Inactivated Comments 05/26/2015 2:31 PM 05/29/2015 6:04 PM Care Teams Welt Wheeler Relationship Specialty Start Date End Date Ariel Villaseñor MD [address] [place] [address] [place] [id number] PCP - General Internal Medicine 05/16/15
--- NOTE | 2024-11-13 06:30 | NM_ITS ---
APPROVED REPORT Exam: Nuclear Stress Test Indication: htn, diabetes, fm hx, r/o ishemia Patient Location: Outpatient Stress Tech: Avis Kirk ND Tech:KYLE Lunsford RT (R)(N)(M) Ht: 6 ft 2 in Wt: 280 lbs HR: 82 bpm BP: 178/84 mmHg BSA: 2.51 m2 TID: 1.04 BMI: 35.9 History: htn, diabetes, fm hx, r/o ischemia patient could not lay on stomach for prone images Procedure: Patient received 0.4 mg of intravenous Lexiscan, resting heart rate 82 bpm, resting blood pressure 178/84 mmHg, with Lexiscan maximum heart rate achieved was 93 bpm which is % of the maximum predicted heart rate and blood pressure was 164/88 mmHg. With Lexiscan, patient denied any complaint of chest pain. Cardiac Stress and Resting SPECT Images: Cardiac Stress and Resting SPECT images were obtained using technetium 99m Myoview 30.8 mCi stress and 10.43 mCi at rest. The patient was unable to lie on his abdomen. Therefore, prone stress imaging could not be performed. This may affect diagnostic interpretation of the study findings. Resting and stress imaging in supine positions demonstrate a medium sized, moderate, partially reversible perfusion defect in the basal to mid inferior LV lucia. Gated imaging demonstrates normal global LV systolic function. LVEF is calculated at 61%. Conclusion: Medium sized, moderate, partially reversible perfusion defect in the basal to mid inferior LV lucia. Findings are suggestive of partial reversible ischemia. Gated imaging demonstrates normal global LV systolic function. LVEF is calculated at 61%. Electronically signed by : Tracy Rahman MD 11/13/2024 13:00:26
[2024-11-13] MEDS: SODIUM CHLORIDE 0.9% 10ML SYR (RAD ONLY) 10 ML IV ×2 (06:40→08:05)
[2024-11-13 08:00] VITALS: BP 178/84; PULSE 82; RESP 16
[2024-11-13] MEDS: ISOTOPE MYOVIEW (PER STUDY) 1 DOSE IV (08:13)
== END 2024-11-13 23:59 | disposition home or self-care (01) ==
LOC: RAD 06:04
PROVIDERS: PCP Nurse Practitioner Family; Visit Provider Physician Assistant
DX: I49.1 Atrial premature depolarization (principal); E78.5 Hyperlipidemia, unspecified; I10 Essential (primary) hypertension; E11.9 Type 2 diabetes mellitus without complications; R94.31 Abnormal electrocardiogram [ECG] [EKG]; R94.39 Abnormal result of other cardiovascular function study
CPT/HCPCS: 78452; 93017; 93018; A9502; J2785

== ENCOUNTER 2024-11-14 13:48 | Outpatient (CLI) | payer MEDICARE, OTHER, SELFPAY ==
--- OUTSIDE RECORDS SUMMARY | 2019-01-19 10:20 | XMS_ITS | Encounter Summary ---
Author Organization [facility] [place] [place] [address] Care Team Providers Care Chemical Treatment Operator Name Role Phone Ariel Villaseñor MD Primary Care Provider [phone] Encounter Details Date Type Department Care Team (Latest Contact Info) Description 01/19/2019 9:20 AM EST Hospital Encounter [facility] Referral Lab [address] [place] [id number] Brian Mcmanus MD [address] [place] [address] Presence of right artificial knee [...] 01/19/2019 10:30 AM EST [facility] Blood Venipuncture / Unknown 01/19/2019 9:49 AM EST 01/19/2019 9:49 AM EST us Brian Mcmanus MD HEMATOLOGY ORDERABLES Final Result [facility], [employer] 1 [facility] , [place] [address] * (ABNORMAL) CBC WITH DIFF [...] 10:11 AM EST [facility] [place] Percent 6.5 % 01/19/2019 10:11 AM EST [facility] Eos Percent 8.6 % 01/19/2019 10:11 AM EST [facility] Baso Percent 1.5 % 01/19/2019 10:11 AM EST [facility] Neut # 6.1 1.6 - 6.1 x10(3)/[facility] 01/19/2019 10:11 AM EST [facility] [employer] Comment:Neutrophils equals s egs plus bands IMMGRAN# 0.1 0.0 - 0.1 x10(3)/[facility] 01/19/2019 10:11 AM EST [facility] [employer], [facility] Comment:Automated count of m etamyelocytes, myelocytes and promyelocytes. An absolute IG <0.1 is reported as 0.0. Lymph # 2.2 1.2 - 3.9 x10(3)/[facility] 01/19/2019 10:11 AM EST [facility] [place] # 0.7 0.3 - 0.9 x10(3)/[facility] 01/19/2019 10:11 AM EST [facility] Eos# 0.9(H) 0.0 - 0.5 x10(3)/[facility] 01/19/2019 10:11 AM EST [facility], [facility] Baso # 0.2(H) 0.0 - 0.1 x10(3)/[facility] 01/19/2019 10:11 AM EST [facility] [employer], [facility] Blood Venipuncture / Unknown 01/19/2019 9:49 AM EST 01/19/2019 9:49 AM EST us Brian Mcmanus MD HEMATOLOGY ORDERABLES Final Result [facility] [employer], [facility] 1 [facility] , [place] [address] * C-REACTIVE PROTEIN (01/19/2019 9:49 AM EST) CRP 3.41 <=5.00 mg/L 01/19/2019 10:32 AM EST [facility] [employer], [facility] Blood Venipuncture / Unknown 01/19/2019 9:49 AM EST 01/19/2019 9:49 AM EST us Brian Mcmanus MD CHEMISTRY ORDERABLES Final R esult [facility] [address] [facility] , [address] [place] [phone] documented in this encounter Visit Diagnoses Diagnosis Presence of right artificial knee joint Knee joint replacement by other means documented in this encounter Care Teams Chemical Treatment Operator Relationship Specialty Start Date End Date Ariel Villaseñor MD [address] [place] [address] PCP - General Internal Medicine 05/16/15 documented as of this encounter
--- OUTSIDE RECORDS SUMMARY | 2024-11-14 13:52 | XMS_ITS | Clinical Summary ---
Author Organization [facility] Address [place] [address] Phone Care Team Providers Care Dice Maker Name Role Phone Ariel Villaseñor MD Primary Care Provider [phone] Allergies No known active allergies Medications acarbose [...] this topic Medical Devices Implanted Type Area Residential Program Director Device Identifier Shelf Expiration Date Model / Serial / Lot Baseplate Tibial Tritanium Triathlon Size 7 - [id number] Implanted:Qty: 1 on 05/26/2015 by Brian Mcmanus MD at [facility] Left: Knee CHUCHO:ORTHOPEDI CS 05/04/2020 5536-B-700 / / [id number] Component Femoral Stabilized Posterior Triathlon #6 Left - [id number] Implanted:Qty: 1 on 05/26/2015 by Brian Mcmanus MD at [facility] Left: Knee CHUCHO:ORTHOPEDI CS 05/12/2020 5516-F-601 / / [id number] Patella Backed Metal Tritanium Asymmetric A 40 X 11 - [id number] Implanted:Qty: 1 on 05/26/2015 by Brian Mcmanus MD at [facility] Left: Knee CHUCHO:ORTHOPEDI CS 04/28/2020 5552-L-401 / / [id number] Insert Bearing Tibial X3 Triathlon Ps Size 7-9mm - [id number] Implanted:Qty: 1 on 05/26/2015 by Brian Mcmanus MD at [facility] Left: Knee CHUCHO:ORTHOPEDI CS 04/06/2020 5532-G-709 / / [id number] Cmpnt Fem 6 Kn Rt Post Stab Bead Trthln Pa - [id number] Implanted:Qty: 1 on 08/08/2018 by Brian Mcmanus MD at [facility] Right: Knee CHUCHO:ORTHOPEDI 11/21/2022 [id number] / / [id number] Patella Backed Metal Tritanium Asymmetric A 40 X 11 - [id number] Implanted:Qty: 1 on 08/08/2018 by Brian Mcmanus MD at [facility] Right: Knee CHUCHO:ORTHOPEDI 01/18/2023 5552-L-401 / / [id number] Bsplt Tib Trthln 7 Kn Tritanium - [id number] Implanted:Qty: 1 on 08/08/2018 by Brian Mcmanus MD at [facility] Right: Knee CHUCHO:ORTHOPEDI 03/14/2023 5536-B-700 / / [id number] Ins Tib 7 9mm Kn X3 Post Stab Brng Trthln - [id number] Implanted:Qty: 1 on 08/08/2018 by Brian Mcmanus MD at [facility] Right: Knee CHUCHO:ORTHOPEDI 05/13/2020 [id number] / / [id number] Procedures Procedure Name Priority Date/Time Associated Diagnosis Comments BASIC METABOLIC PANEL Routine 05/19/2015 8:14 AM EDT Preop testing Primary osteoarthritis of left knee from Last 3 Months or Most Recently Relevant to Health Maintenance Results * (ABNORMAL) BASIC METABOLIC PANEL (05/19/2015 8:14 AM EDT) [facility] Signature Sodium 139 136 - 145 mmol/L [facility] Potassium 4.5 3.5 - 5.0 mmol/L [facility] Chloride 100 98 - 107 mmol/L [facility] Total CO2 24 22 - 29 mmol/L [facility] Anion Gap 15 7 - 16 mmol/L [facility] Calcium 9.2 8.8 - 10.2 mg/dL [facility] Glucose Lvl 267(H) 82 - 100 mg/dL [facility] BUN 19 8 - 23 mg/dL [facility] Creatinine 0.86 0.67 - 1.30 mg/dL [facility] GFR Afr Am >60 [facility] GFR Non Afr Am >60 [facility] Blood specimen (specimen) UPPER LIMB STRUCTURE / Unknown 05/19/2015 8:14 AM EDT 05/19/2015 8:40 AM EDT Hollie Boss HEAD ATHLETIC TRAINER CHEMISTRY ORDERABLES Edited R esult - Final [facility] [address] [place] [address] from Last 3 Months or Most Recently Relevant to Health Maintenance [place] [address] [address] [place] [address] MEDICARE SUPPLEMENT MEDICARE [place] PART A AND B MEDICARE SUPPLEMENT MEDICARE [place] PART A AND B Advance Directives For more information, please contact: [phone] Documents on File Type Date Recorded Patient Analytics Analyst Expl anation ADVANCE DIRECTIVE 08/08/2018 12:23 PM Advance Directives/DNR 05/26/2015 8:52 AM May 26 2015 12:51:51:266 GMT * Full Code (Latest Code Status on File) Date Activated Date Inactivated Comments 08/08/2018 6:29 PM 08/10/2018 6:26 PM * Full Code Date Activated Date Inactivated Comments 05/26/2015 2:31 PM 05/29/2015 6:04 PM Care Teams Dice Maker Relationship Specialty Start Date End Date Ariel Villaseñor MD [address] [place] [id number] PCP - General Internal Medicine 05/16/15
== END 2024-11-14 23:59 | disposition home or self-care (01) ==
LOC: RT 13:50
PROVIDERS: PCP Nurse Practitioner Family; Visit Provider Physician Assistant
DX: I48.0 Paroxysmal atrial fibrillation (principal); I48.92 Unspecified atrial flutter; I49.1 Atrial premature depolarization; I49.3 Ventricular premature depolarization; I47.19 Other supraventricular tachycardia; I44.0 Atrioventricular block, first degree
CPT/HCPCS: 93270

== ENCOUNTER 2025-03-06 10:00 | Outpatient (CLI) | payer MEDICARE, OTHER, SELFPAY ==
--- OUTSIDE RECORDS SUMMARY | 2019-01-19 09:20 | XMS_ITS | Encounter Summary ---
Author Organization [facility] [place] [address] Care Team Providers Care Family Court Registrar Name Role Phone Ariel Villaseñor MD Primary Care Provider [phone] Encounter Details Date Type Department Care Team (Latest Contact Info) Description 01/19/2019 9:20 AM EST Hospital Encounter [facility] Referral Lab [address] [place] [id number] Brian Mcmanus MD [address] [place] [address] Presence of right artificial knee joint Social History Tobacco Use Types Packs/Day Years Used Date Smoking Tobacco: Former Cigarettes Q uit: 05/18/2005 Smokeless Tobacco: Never Alcohol Use Standard Drinks/Week Comments No 0 (1 standard drink = 0.6 oz pur e alcohol) Sex and Gender Information Value Date Recorded Sex Assigned at Not on file Legal Sex Male 11:27 AM EST Gender Identity Not on file Sexual Orientation Not on file documented as of this encounter Plan of Treatment Not on file documented as of this encounter Results * SEDIMENTATION RATE AUTOMATED (01/19/2019 9:49 AM EST) Sed Rate 5 0 - 20 mm/hr 01/19/2019 10:30 AM EST [facility] Blood Venipuncture / Unknown 01/19/2019 9:49 AM EST 01/19/2019 9:49 AM EST us Brian Mcmanus MD HEMATOLOGY ORDERABLES Final Result [facility], [employer] 1 [facility] , [place] [address] * (ABNORMAL) CBC WITH DIFF (01/19/2019 9:49 AM EST) WBC 10.0 3.7 - 10.3 x10(3)/mcL 01/19/2019 10:11 AM EST [facility] RBC 5.66 4.60 - 6.10 x10(6)/mcL 01/19/2019 10:11 AM EST [facility] Hgb 15.8 13.7 - 17.5 g/dL 01/19/2019 10:11 AM EST [facility] Hct 49.7 40.0 - 51.0 % 01/19/2019 10:11 AM EST [facility] MCV 87.8 80.0 - 100.0 fL 01/19/2019 10:11 AM EST [facility] MCH 27.9 26.0 - 34.0 pg 01/19/2019 10:11 AM EST [facility] MCHC 31.8 30.7 - 35.5 g/dL 01/19/2019 10:11 AM EST [facility] RDW 14.1 <=14.9 % 01/19/2019 10:11 AM EST [facility] Platelet 217 155 - 369 x10(3)/mcL 01/19/2019 10:11 AM EST [facility] MPV 10.6 8.8 - 12.5 fL 01/19/2019 10:11 AM EST [facility] Neut Percent 60.9 % 01/19/2019 10:11 AM EST [facility] Comment:Neutrophils equals s egs plus bands Imm Gran% 0.5 % 01/19/2019 10:11 AM EST [facility] Comment:Automated count of m etamyelocytes, myelocytes and promyelocytes. Lymph Percent 22.0 % 01/19/2019 10:11 AM EST [facility] [place] Percent 6.5 % 01/19/2019 10:11 AM EST [facility] Eos Percent 8.6 % 01/19/2019 10:11 AM EST [facility] Baso Percent 1.5 % 01/19/2019 10:11 AM EST [facility] Neut # 6.1 1.6 - 6.1 x10(3)/[facility] 01/19/2019 10:11 AM EST [facility] [employer] Comment:Neutrophils equals s egs plus bands IMMGRAN# 0.1 0.0 - 0.1 x10(3)/[facility] 01/19/2019 10:11 AM EST [facility] [employer] Comment:Automated count of m etamyelocytes, myelocytes and promyelocytes. An absolute IG <0.1 is reported as 0.0. Lymph # 2.2 1.2 - 3.9 x10(3)/[facility] 01/19/2019 10:11 AM EST [facility] [place] # 0.7 0.3 - 0.9 x10(3)/[facility] 01/19/2019 10:11 AM EST [facility] Eos# 0.9(H) 0.0 - 0.5 x10(3)/[facility] 01/19/2019 10:11 AM EST [facility] Baso # 0.2(H) 0.0 - 0.1 x10(3)/[facility] 01/19/2019 10:11 AM EST [facility] [employer] Blood Venipuncture / Unknown 01/19/2019 9:49 AM EST 01/19/2019 9:49 AM EST us Brian Mcmanus MD HEMATOLOGY ORDERABLES Final Result [facility] [employer], [facility] 1 [facility] , [place] [address] * C-REACTIVE PROTEIN (01/19/2019 9:49 AM EST) CRP 3.41 <=5.00 mg/L 01/19/2019 10:32 AM EST [facility] [employer] Blood Venipuncture / Unknown 01/19/2019 9:49 AM EST 01/19/2019 9:49 AM EST us Brian Mcmanus MD CHEMISTRY ORDERABLES Final R esult [facility] [address] [facility] , [address] [place] [phone] documented in this encounter Visit Diagnoses Diagnosis Presence of right artificial knee joint Knee joint replacement by other means documented in this encounter Care Teams Family Court Registrar Relationship Specialty Start Date End Date Ariel Villaseñor MD [address] [place] [address] PCP - General Internal Medicine 05/16/15 documented as of this encounter
--- NOTE | 2025-03-06 10:03 | XR_ITS ---
FINAL REPORT CLINICAL HISTORY: Evaluation of Right Foot Pain COMPARISON: 05/27/2020 FINDINGS: AP, oblique and lateral views of the right foot were obtained. There is no acute fracture or dislocation. 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 There are calcifications along the base of the 5th metatarsal which are unchanged and could be unfused ossicle or old avulsion injury. Soft tissues are unremarkable. IMPRESSION: No acute osseous abnormality of the right foot. Reviewed, Interpreted and Dictated by Jelly Santana MD Transcribed by Gege Patino Authenticated and [facility]
--- OUTSIDE RECORDS SUMMARY | 2025-03-06 10:06 | XMS_ITS | Clinical Summary ---
Author Organization [facility] Address [address] [place] [address] Phone Care Team Providers Care Coding Manager Name Role Phone Ariel Villaseñor MD Primary Care Provider [phone] Allergies No known active allergies Medications acarbose [...] on file Sexual Orientation Not on file Last Filed Vital Signs Vital Sign Reading [...] this topic Medical Devices Implanted Type Area Dispatch Manager Device Identifier Shelf Expiration Date Model / Serial / Lot Baseplate Tibial Tritanium Triathlon Size 7 - [id number] Implanted:Qty: 1 on 05/26/2015 by Brian Mcmanus MD at [facility] Left: Knee CHUCHO:ORTHOPEDI CS 05/04/2020 5536-B-700 / / [id number] Component Femoral Stabilized Posterior Triathlon #6 Left - [id number] Implanted:Qty: 1 on 05/26/2015 by Brian Mcmanus MD at [facility] Left: Knee CHUCHO:ORTHOPEDI CS 05/12/2020 5516-F-601 / / [id number] Patella Backed Metal Tritanium Asymmetric A 40 X 11 - [id number] Implanted:Qty: 1 on 05/26/2015 by Brian Mcmanus MD at [facility] Left: Knee CHUCHO:ORTHOPEDI CS 04/28/2020 5552-L-401 / / [id number] Insert Bearing Tibial X3 Triathlon Ps Size 7-9mm - [id number] Implanted:Qty: 1 on 05/26/2015 by Brian Mcmanus MD at [facility] Left: Knee CHUCHO:ORTHOPEDI CS 04/06/2020 5532-G-709 / / [id number] Cmpnt Fem 6 Kn Rt Post Stab Bead Trthln Pa - [id number] Implanted:Qty: 1 on 08/08/2018 by Brian Mcmanus MD at [facility] Right: Knee CHUCHO:ORTHOPEDI CS 11/21/2022 [id number] / / [id number] Patella Backed Metal Tritanium Asymmetric A 40 X 11 - [id number] Implanted:Qty: 1 on 08/08/2018 by Brian Mcmanus MD at [facility] Right: Knee CHUCHO:ORTHOPEDI 01/18/2023 5552-L-401 / / [id number] Bsplt Tib Trthln 7 Kn Tritanium - [id number] Implanted:Qty: 1 on 08/08/2018 by Brian Mcmanus MD at [facility] Right: Knee CHUCHO:ORTHOPEDI 03/14/2023 5536-B-700 / / [id number] Ins Tib 7 9mm Kn X3 Post Stab Brng Trthln - [id number] Implanted:Qty: 1 on 08/08/2018 by Brian Mcmanus MD at [facility] Right: Knee CHUCHO:ORTHOPEDI 05/13/2020 [id number] / / [id number] Procedures Procedure Name Priority Date/Time Associated Diagnosis Comments BASIC METABOLIC PANEL Routine 05/19/2015 8:14 AM EDT Preop testing Primary osteoarthritis of left knee from Last 3 Months or Most Recently Relevant to Health Maintenance Results * (ABNORMAL) BASIC METABOLIC PANEL (05/19/2015 8:14 AM EDT) Sodium 139 136 - 145 mmol/L [facility] Potassium 4.5 3.5 - 5.0 mmol/L [facility] Chloride 100 98 - 107 mmol/L [facility] Total CO2 24 22 - 29 mmol/L [facility] Anion Gap 15 7 - 16 mmol/L [facility] Calcium 9.2 8.8 - 10.2 mg/dL [facility] Glucose Lvl 267(H) 82 - 100 mg/dL [facility] BUN 19 8 - 23 mg/dL [facility] Creatinine 0.86 0.67 - 1.30 mg/dL [facility] GFR Afr Am >60 [facility] GFR Non Afr Am >60 [facility] Blood specimen (specimen) UPPER LIMB STRUCTURE / Unknown 05/19/2015 8:14 AM EDT 05/19/2015 8:40 AM EDT 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 Edited R esult - Final [facility] [address] [place] [address] from Last 3 Months or Most Recently Relevant to Health Maintenance [place] [address] [place] [address] MEDICARE SUPPLEMENT MEDICARE SUPPLEMENT Advance Directives For more information, please contact: [phone] Documents on File Type Date Recorded 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
[2025-03-06 10:39] LABS: Hematocrit 45.4 % (42.0-52.0); Hemoglobin 14.7 g/dL (14.1-18.0); Immature Granulocytes % 0.3 %; Mean Corpuscular HGB Conc 32.4 g/dL (31.8-35.4); Mean Corpuscular Hemoglobin 27.7 pg (27.0-31.2); Mean Corpuscular Volume 85.7 fl (80-94); Nucleated Red Blood Cells % 0 %; Platelet Count 194 K/mm3 (142-424); Red Blood Count 5.30 M/mm3 (4.60-6.20); Red Cell Distribution Width-SD 42.5 fL; White Blood Count 11.7 K/mm3 (4.8-10.8)
[2025-03-06 11:01] LABS: Albumin Level 4.2 g/dl (3.5-5.0); Chloride 103 mmol/L (98-107)
[2025-03-06 11:02] LABS: Potassium 4.3 mmoL/L (3.5-5.1); Sodium 140 mmol/L (136-145)
[2025-03-06 11:04] LABS: Alanine Aminotransferase 26 U/L (12-78); Anion Gap 14.3 mEq/L (5-15); Aspartate Amino Transferase 25 U/L (17-59); Blood Urea Nitrogen 28 mg/dl (9-20); Carbon Dioxide 27 mmol/L (22.0-30.0); Creatinine,Serum 1.30 mg/dl (0.66-1.25); Estimated Glomerular Filt Rate 54 ml/min (>60); GFR (African American) 65 ML/MIN (>60)
[2025-03-06 11:05] LABS: Albumin/Globulin Ratio 1.7 (1.1-1.8); Alkaline Phosphatase 95 U/L (38-126); Bilirubin,Total 0.7 mg/dl (0.2-1.3); Calcium 9.5 mg/dl (8.4-10.2); Globulin 2.5 g/dL (1.3-3.2); Glucose 236 mg/dl (74-100); Total Protein,Serum 6.7 g/dl (6.3-8.2)
[2025-03-06 11:11] LABS: C-Reactive Protein 30.4 mg/L (0-4)
== END 2025-03-06 23:59 | disposition home or self-care (01) ==
PROVIDERS: PCP Nurse Practitioner Family; Visit Provider Nurse Practitioner
DX: E11.621 Type 2 diabetes mellitus with foot ulcer (principal); L97.519 Non-pressure chronic ulcer of other part of right foot with unspecified severity; R60.0 Localized edema
CPT/HCPCS: 36415; 73630; 80053; 85025; 85651; 86140; 87070; 87077; 87186; 87205